=== PATIENT | female | born 1940 | race Caucasian/White ===

== ENCOUNTER 2019-02-18 16:11 | Emergency (ER) | payer MEDICARE ==
[~2019-02-18] VITALS: Ht 61 cm; Wt 46.4 kg
--- NOTE | 2019-02-18 16:50 | NUR ---
Pt to FT1 d/t lack of bed availability in ED.
--- NOTE | 2019-02-18 17:15 | NUR ---
Pt amb to room #6 @ this time.
--- NOTE | 2019-02-18 17:53 | Diagnostic Imaging Report ---
INDICATION: Hypertension. COMPARISON: No comparison available. FINDINGS: Heart size is mildly prominent, but the central pulmonary vascularity appears appropriate. There do appear to be chronic interstitial changes present within the lungs. Correlate for any known smoking history. There is no focal infiltrate or evidence of an effusion. There is no pneumothorax. No suspicious osseous abnormality demonstrated. There has been prior right shoulder arthroplasty and lumbar spinal fusion. IMPRESSION: 1. Mildly enlarged cardiac silhouette without evidence of current edema or failure. 2. Apparent chronic interstitial change within the lungs. Correlate for any known smoking history. 3. No focal infiltrate or effusion. Dictated by: Dictated on workstation # [id number]
--- NOTE | 2019-02-18 18:00 | NUR ---
pt sitting in ED bed quietly with family at side, pt shows no s/s of distress, pt denies any needs or c/o at this time, will continue to monitor
[2019-02-18 18:12] LABS: BASOPHILS # (AUTO) 0.1 10^3/uL (0.0-0.1); BASOPHILS % (AUTO) 1 % (0-10); EOSINOPHILS # (AUTO) 0.6 10^3/uL (0.0-0.3); EOSINOPHILS % (AUTO) 5 % (0-10); HEMATOCRIT 36 % (35-52); HEMOGLOBIN 11.3 G/DL (11.5-16.0); LYMPHOCYTES # (AUTO) 1.7 X 10^3 (1.0-4.0); LYMPHOCYTES % (AUTO) 17 % (12-44); MEAN CORPUSCULAR HEMOGLOBIN 29 PG (25-34); MEAN CORPUSCULAR HGB CONC 32 G/DL (32-36); MEAN CORPUSCULAR VOLUME 92 FL (80-99); MEAN PLATELET VOLUME 10.6 FL (7.4-10.4); MONOCYTES # (AUTO) 1.1 X 10^3 (0.0-1.0); MONOCYTES % (AUTO) 10 % (0-12); NEUTROPHILS % (AUTO) 67 % (42-75); PLATELET COUNT 345 10^3/uL (130-400); RED CELL DISTRIBUTION WIDTH 14.2 % (10.0-14.5); WHITE BLOOD COUNT 10.4 10^3/uL (4.3-11.0)
[2019-02-18 18:22] LABS: INR 0.9 (0.8-1.4); PROTHROMBIN TIME PATIENT 12.7 SEC (12.2-14.7)
[2019-02-18] MEDS ORDERED: hydrALAZINE (APESOLINE) 20 MG/ML VIAL IV ONE (18:30)
[2019-02-18 18:31] LABS: ALANINE AMINOTRANSFERASE 7 U/L (0-55); ALKALINE PHOSPHATASE 106 U/L (40-136); BILIRUBIN,TOTAL 0.2 MG/DL (0.1-1.0); BUN/CREATININE RATIO 23; CARBON DIOXIDE 25 MMOL/L (21-32); CHLORIDE 101 MMOL/L (98-107); CREATININE SERUM 0.75 MG/DL (0.60-1.30); GFR ESTIMATED > 60; GLUCOSE 90 MG/DL (70-105); POTASSIUM 3.8 MMOL/L (3.6-5.0); SODIUM 137 MMOL/L (135-145); TOTAL PROTEIN 7.1 GM/DL (6.4-8.2)
--- NOTE | 2019-02-18 18:31 | ED Cardiac General ---
History of Present Illness General Chief Complaint: Cardiac/General Problems Stated Complaint: BP HIGH Nursing Triage Note: Pt amb to triage w/o difficulty with c/o high bp. Reports to have audrey experiencing increased bp for approx x3 days. 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 Reports headache and chronic back pain. Denies SOA, CP, nausea, vomiting, or dizziness. Reports to have had bilat carotid duplex scans performed on this day. History of Present Illness Date Seen by Provider: Feb 18, 2019 Time Seen by Provider: 16:50 Initial Comments 78-year-old female presents for hypertension. She was seen at her primary care provider's office and referred here. Patient immediately reports that her blood pressure is related to her back pain. She was taking hydrocodone regularly and recently moved from [place] to [place].She is seeing a new provider and she reports "he won't refill my norco". Timing/Duration: intermittent Severity: mild Location: back Activities at Onset: none NTG SL MANAGER FORMS: No ASA po MANAGER FORMS: No Associated Systoms: Denies Symptoms Allergies and Home Medications Allergies Coded Allergies: No Allergy Information Available (Unverified , 02/18/19) Patient Home Medication List Home Medication List Reviewed: Yes Review of Systems Review of Systems Constitutional: no symptoms reported, see HPI Cardiovascular: See HPI, Other (hypertension) Musculoskeletal: see HPI, back pain (patient denies any change in her symptoms, they've been chronic.) All Other Systems Reviewed Negative Unless Noted: Yes Past Ptdsrak-Cnuvhi-Ifmfcc Hx Past Med/Social Hx: Reviewed Nursing Past Med/Soc Hx Patient Social History Alcohol Use: Denies Use Recreational Drug Use: No Smoking Status: Current Everyday Smoker Type Used: Cigarettes 2nd Hand Smoke Exposure: Yes Recent Foreign Travel: No Contact w/Someone Who Travel: No Recent Infectious Disease Expo: No Recent Hopitalizations: No Past Medical History Surgeries: Yes (double mastectomy) Appendectomy, Gallbladder, Hysterectomy, Orthopedic Respiratory: Yes COPD Cardiac: Yes Hypertension Neurological: No Genitourinary: No Musculoskeletal: Yes Degenerate Disk Disease, Osteoporosis, Arthritis, Back Injury, Chronic Back Pain Endocrine: No Cancer: No Psychosocial: No Integumentary: No Blood Disorders: No Physical Exam Vital Signs Vital Signs - First Documented 02/18/19 16:30 Temp 36.4 Pulse 83 Resp 17 B/P (MAP) 207/99 (135) Pulse Ox 98 O2 Delivery Room Air Capillary Refill : Less Than 3 Seconds Height, Weight, BMI Height: '" Weight: lbs. oz. kg; 124.00 BMI Method: General Appearance: No Apparent Distress, WD/WN HEENT: PERRL/EOMI, TMs Normal, Normal ENT Inspection, Pharynx Normal Neck: Full Range of Motion, Normal Inspection, Non Tender, Supple Respiratory: Chest Non Tender, Lungs Clear, Normal Breath Sounds Cardiovascular: Regular Rate, Rhythm, No Murmur, Normal Peripheral Pulses Gastrointestinal: Normal Bowel Sounds, Non Tender, Soft Extremity: Normal Capillary Refill, Normal Inspection, Normal Range of Motion, No Pedal Edema Neurologic/Psychiatric: Alert, Oriented x3, No Motor/Sensory Deficits, Normal Mood/Affect Skin: Normal Color, Warm/Dry Other comments Normal range of motion to the lumbar spine, power V/V L4 to S1, no paraspinal muscle spasms, full range of motion to bilateral hips. Negative straight leg raising sign. Progress/Results/Core Measures Results/Orders Lab Results Laboratory Tests Test 02/18/19 17:58 Range/Units White Blood Count 10.4 4.3-11.0 10^3/uL Red Blood Count 3.89 L 4.35-5.85 10^6/uL Hemoglobin 11.3 L 11.5-16.0 G/DL Hematocrit 36 35-52 % Mean Corpuscular Volume 92 80-99 FL Mean Corpuscular Hemoglobin 29 25-34 PG Mean Corpuscular Hemoglobin Concent 32 32-36 G/DL Red Cell Distribution Width 14.2 10.0-14.5 % Platelet Count 345 130-400 10^3/uL Mean Platelet Volume 10.6 H 7.4-10.4 FL Neutrophils (%) (Auto) 67 42-75 % Lymphocytes (%) (Auto) 17 12-44 % Monocytes (%) (Auto) 10 0-12 % Eosinophils (%) (Auto) 5 0-10 % Basophils (%) (Auto) 1 0-10 % Neutrophils # (Auto) 7.0 1.8-7.8 X 10^3 Lymphocytes # (Auto) 1.7 1.0-4.0 X 10^3 Monocytes # (Auto) 1.1 H 0.0-1.0 X 10^3 Eosinophils # (Auto) 0.6 H 0.0-0.3 10^3/uL Basophils # (Auto) 0.1 0.0-0.1 10^3/uL Prothrombin Time 12.7 12.2-14.7 SEC INR Comment 0.9 0.8-1.4 Activated Partial Thromboplast Time 35 24-35 SEC Sodium Level 137 135-145 MMOL/L Potassium Level 3.8 3.6-5.0 MMOL/L Chloride Level 101 98-107 MMOL/L Carbon Dioxide Level 25 21-32 MMOL/L Anion Gap 11 5-14 MMOL/L Blood Urea Nitrogen 17 7-18 MG/DL Creatinine 0.75 0.60-1.30 MG/DL Estimat Glomerular Filtration Rate > 60 BUN/Creatinine Ratio 23 Glucose Level 90 70-105 MG/DL Calcium Level 10.0 8.5-10.1 MG/DL Corrected Calcium 10.0 8.5-10.1 MG/DL Magnesium Level 2.0 1.6-2.4 MG/DL Total Bilirubin 0.2 0.1-1.0 MG/DL Aspartate Amino Transf (AST/SGOT) 12 5-34 U/L Alanine Aminotransferase (ALT/SGPT) 7 0-55 U/L Alkaline Phosphatase 106 40-136 U/L Myoglobin 25.9 10.0-92.0 NG/ML Troponin I < 0.028 <0.028 NG/ML Total Protein 7.1 6.4-8.2 GM/DL Albumin 4.0 3.2-4.5 GM/DL My Orders Orders - PAT[facility] [employer] Cbc With Automated Diff (02/18/19 17:15) Magnesium (02/18/19 17:15) Chest 1 View, Ap/Pa Only (02/18/19 17:15) Ekg Tracing (02/18/19 17:15) Cardiac Profile 1 (02/18/19 17:15) Comprehensive Metabolic Panel (02/18/19 17:15) Myoglobin Serum (02/18/19 17:15) Protime With Inr (02/18/19 17:15) Partial Thromboplastin Time (02/18/19 17:15) Ed Iv/Invasive Line Start (02/18/19 17:15) Hydralazine Injection (Apresoline Inject (02/18/19 18:30) Tramadol Tablet (Ultram Tablet) (02/18/19 19:00) Medications Given in ED Current Medications Medications Dose Ordered Sig/Deneen Route Start Time Stop Time Status Last Admin Dose Admin Hydralazine HCl 5 mg ONCE ONCE IV 02/18/19 18:30 02/18/19 18:31 DC 02/18/19 19:10 5 MG Vital Signs/I&O 02/18/19 02/18/19 16:30 20:05 Temp 36.4 Pulse 83 83 Resp 17 18 B/P (MAP) 207/99 (135) 166/69 (135) Pulse Ox 98 98 O2 Delivery Room Air Blood Pressure Mean: 135 Progress Progress Note : Time: 16:50 Progress Note Patient seen and evaluated, will get labs and reevaluate. 1844 Will give Hydralazine 5 mg IV for blood pressure, we'll give tramadol 100 mg for pain. Labs all within normal limits 1909 patient and her son became upset when nurse brought Tramadol to room, said they don't want to pay $60 for tramadol when it won't work. Checked K-Tracs, patient has significant history of opiod use going back to 2016. Until the end of December 2018, she was getting 60-85 hydrocodone 10 mg/APAP 325 mg every month, previously she was getting Oxycodone 10 mg regularly. Initial ECG Impression Date: Feb 18, 2019 Initial ECG Impression Time: 17:34 Initial ECG Rate: 75 Initial ECG Rhythm: Normal Sinus Initial ECG Intervals: Normal Initial ECG Intervals CA 148, QRSD 74, QT 396, QTC 443. [place] P 23, QRS 31, T 79. Initial ECG Comparisson: No Previous ECG Available Diagnostic Imaging Diagonstic Imaging: CT Plain Films/CT/US/NM/MRI: head Comments NAME: MARJ SULTANA [facility] REC#: [id number] PT STATUS: REG CLI : 1940 PHYSICIAN: ELY GANDHI DO ADMIT DATE: 02/18/19/RAD Signed Date of Exam: 02/18/19 CT ANGIO HEAD/NECK PROCEDURE: CT angiography of the head and CT angiography of the neck with and without contrast. TECHNIQUE: Contiguous noncontrast images were obtained from the skull base through the vertex. After intravenous contrast administration, helical CT angiography of the neck was performed. Source data was reformatted into 3D MIP projections. Delayed post contrast acquisition was also obtained. Auto Exposure Controls were utilized during the CT exam to meet ALARA standards for radiation dose reduction. INDICATION: Abnormal outside carotid Doppler. This study is performed for further evaluation. COMPARISON: Prior images are not available for comparison. FINDINGS: Precontrast imaging through the brain demonstrates some prominence of ventricles and sulci consistent with the patient's age. There is periventricular hypodensity noted consistent with senescent change. 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 No sulcal effacement or midline shift is detected. No acute intra-axial or extra-axial hemorrhage is detected. Delayed postcontrast imaging through the brain is without evidence of an abnormal enhancing lesion. CT angiographic portion of the exam does show a three-vessel branching pattern of the aortic arch. There is calcified plaque involving the aortic arch as well as origins of the brachiocephalic, left common carotid, and left subclavian arteries. Both common carotid arteries appear to be widely patent. There is mild plaquing in the proximal right internal carotid artery. No stenosis is seen. More significant plaquing is identified at the left carotid bifurcation and proximal left internal carotid artery. Diameter stenosis is approximately 70%. Remainder of the internal carotid arteries appears to be widely patent apart from some calcified plaque at the carotid siphons bilaterally. Bilateral middle cerebral arteries, bilateral anterior cerebral arteries, and posterior cerebral arteries appear patent. The basilar artery is patent. Bilateral vertebral arteries are patent. Vertebral arteries appear to be codominant. Imaging through the upper lung ash does show centrilobular emphysematous change with biapical pleural parenchymal scarring. IMPRESSION: Bilateral carotid plaque. There is approximately 70% stenosis of the origins of the left internal carotid artery. No other significant abnormality is seen. Reviewed: Reviewed by Me Departure Impression Primary Impression: Hypertension Qualified Codes: I10 - Essential (primary) hypertension Additional Impression: Opioid withdrawal Disposition: 01 HOME, SELF-CARE Condition: Improved Departure-Patient Inst. Decision time for Depature: 21:00 Referrals: ELY GANDHI DO (PCP) Primary Care Physician Patient Instructions: Drug Abuse and Drug Addiction (DC), High Blood Pressure (DC) Add. Discharge Instructions: Consider seeking care with [facility] for medication treatment for opioid abuse, Dr. Stone or Shahab. Increase your Metoprolol, take 2 tablets for the next 3-4 days, then follow up with your blood pressure. Return to the emergency department for new, urgent health care problems. All discharge instructions reviewed with patient and/or family. Voiced understanding. Copy Copies To 1: ELY GANDHI AMY ARNP Feb 18, 2019 18:31
--- NOTE | 2019-02-18 18:42 | NUR ---
assisted pt to restroom
[2019-02-18 20:05] VITALS: BP 166/69
== END 2019-02-18 20:05 | disposition home or self-care (01) ==
LOC: EDUNIT# 16:11 → ER 16:12
DX: I10 Essential (primary) hypertension (principal); F11.23 Opioid dependence with withdrawal; J44.9 Chronic obstructive pulmonary disease, unspecified; M81.0 Age-related osteoporosis without current pathological fracture; F17.210 Nicotine dependence, cigarettes, uncomplicated; Z90.49 Acquired absence of other specified parts of digestive tract; Z90.710 Acquired absence of both cervix and uterus; Z90.13 Acquired absence of bilateral breasts and nipples
CPT/HCPCS: 36415; 71045; 80053; 83735; 83874; 84484; 85025; 85610; 85730; 93005; 96374

== ENCOUNTER → 2019-02-18 | Outpatient (CLI) | payer MEDICARE ==
[~2019-02-18] MED LIST: HOLD METFORMIN - RECEIVED CONTRAST 20 ML VIAL IV SCH; IOHEXOL 350 MG/ML 100 ML (OMNIPAQUE 350) VIAL IV ONE; NS 100 ML (IVPB) BAG IV ONE
--- NOTE | 2019-02-18 15:37 | Diagnostic Imaging Report ---
PROCEDURE: CT angiography of the head and CT angiography of the neck with and without contrast. TECHNIQUE: Contiguous noncontrast images were obtained from the skull base through the vertex. After intravenous contrast administration, helical CT angiography of the neck was performed. Source data was reformatted into 3D MIP projections. Delayed post contrast acquisition was also obtained. Auto Exposure Controls were utilized during the CT exam to meet ALARA standards for radiation dose reduction. INDICATION: Abnormal outside carotid Doppler. This study is performed for further evaluation. COMPARISON: Prior images are not available for comparison. FINDINGS: Precontrast imaging through the brain demonstrates some prominence of ventricles and sulci consistent with the patient's age. There is periventricular hypodensity noted consistent with senescent change. 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 No sulcal effacement or midline shift is detected. No acute intra-axial or extra-axial hemorrhage is detected. Delayed postcontrast imaging through the brain is without evidence of an abnormal enhancing lesion. CT angiographic portion of the exam does show a three-vessel branching pattern of the aortic arch. There is calcified plaque involving the aortic arch as well as origins of the brachiocephalic, left common carotid, and left subclavian arteries. Both common carotid arteries appear to be widely patent. There is mild plaquing in the proximal right internal carotid artery. No stenosis is seen. More significant plaquing is identified at the left carotid bifurcation and proximal left internal carotid artery. Diameter stenosis is approximately 70%. Remainder of the internal carotid arteries appears to be widely patent apart from some calcified plaque at the carotid siphons bilaterally. Bilateral middle cerebral arteries, bilateral anterior cerebral arteries, and posterior cerebral arteries appear patent. The basilar artery is patent. Bilateral vertebral arteries are patent. Vertebral arteries appear to be codominant. Imaging through the upper lung ash does show centrilobular emphysematous change with biapical pleural parenchymal scarring. IMPRESSION: Bilateral carotid plaque. There is approximately 70% stenosis of the origins of the left internal carotid artery. No other significant abnormality is seen. Dictated by: Dictated on workstation # [id number]
== END ==
LOC: RAD 14:37
PROVIDERS: ATTEND Family Medicine
DX: I65.23 Occlusion and stenosis of bilateral carotid arteries (principal)
CPT/HCPCS: 70496; 70498

== ENCOUNTER → 2019-09-18 | Outpatient (CLI) | payer MEDICARE ==
[2019-09-18 12:21] LABS: ABSOLUTE RETIC # 88 10e9/L (24-90); RETICULOCYTE % 3.74 % (0.50-2.40)
[2019-09-18 12:35] LABS: BAND NEUTROPHILS 0 %; BASOPHILS % (MANUAL) 0 %; EOSINOPHILS % (MANUAL) 1 %; LYMPHOCYTES % (MANUAL) 14 %; MONOCYTES % (MANUAL) 5 %; NEUTROPHILS % (MANUAL) 80 %
[2019-09-18 12:36] LABS: ANISOCYTOSIS MODERATE; HYPOCHROMASIA SLIGHT
== END ==
LOC: LABNPT 12:11
PROVIDERS: ATTEND Internal Medicine
DX: Z01.89 Encounter for other specified special examinations (principal)
CPT/HCPCS: 85007; 85045

== ENCOUNTER 2019-09-29 12:42 | Outpatient (RCR) | payer MEDICARE ==
[2019-09-29 13:16] LABS: BASOPHILS # (AUTO) 0.1 10^3/uL (0.0-0.1); BASOPHILS % (AUTO) 2 % (0-10); EOSINOPHILS # (AUTO) 0.4 10^3/uL (0.0-0.3); EOSINOPHILS % (AUTO) 7 % (0-10); HEMATOCRIT 39 % (35-52); HEMOGLOBIN 11.8 G/DL (11.5-16.0); LYMPHOCYTES # (AUTO) 0.8 X 10^3 (1.0-4.0); LYMPHOCYTES % (AUTO) 15 % (12-44); MEAN CORPUSCULAR HEMOGLOBIN 27 PG (25-34); MEAN CORPUSCULAR HGB CONC 30 G/DL (32-36); MEAN CORPUSCULAR VOLUME 90 FL (80-99); MEAN PLATELET VOLUME 9.5 FL (7.4-10.4); MONOCYTES # (AUTO) 0.6 X 10^3 (0.0-1.0); MONOCYTES % (AUTO) 11 % (0-12); NEUTROPHILS # (AUTO) 3.6 X 10^3 (1.8-7.8); NEUTROPHILS % (AUTO) 66 % (42-75); PLATELET COUNT 326 10^3/uL (130-400); RED CELL DISTRIBUTION WIDTH 20.3 % (10.0-14.5); WHITE BLOOD COUNT 5.5 10^3/uL (4.3-11.0)
[2019-09-29 13:33] LABS: ALANINE AMINOTRANSFERASE 10 U/L (0-55); ALBUMIN 3.9 GM/DL (3.2-4.5); ALKALINE PHOSPHATASE 125 U/L (40-136); BILIRUBIN,TOTAL 0.2 MG/DL (0.1-1.0); BUN/CREATININE RATIO 27; CALCIUM 9.8 MG/DL (8.5-10.1); CARBON DIOXIDE 26 MMOL/L (21-32); CHLORIDE 105 MMOL/L (98-107); CREATININE SERUM 0.78 MG/DL (0.60-1.30); GFR ESTIMATED > 60; GLUCOSE 115 MG/DL (70-105); POTASSIUM 3.6 MMOL/L (3.6-5.0); SODIUM 141 MMOL/L (135-145); TOTAL PROTEIN 7.2 GM/DL (6.4-8.2)
== END 2019-12-28 | disposition home or self-care (01) ==
LOC: ONC 12:42
PROVIDERS: ATTEND Internal Medicine Hematology & Oncology
DX: D50.0 Iron deficiency anemia secondary to blood loss (chronic) (principal); J44.9 Chronic obstructive pulmonary disease, unspecified; I10 Essential (primary) hypertension; M54.9 Dorsalgia, unspecified; G89.29 Other chronic pain; F17.210 Nicotine dependence, cigarettes, uncomplicated; Z79.82 Long term (current) use of aspirin; Z79.899 Other long term (current) drug therapy
CPT/HCPCS: 80053; 85025; G0463; 99214

== ENCOUNTER → 2020-03-03 | Outpatient (CLI) | payer MEDICARE ==
[~2020-03-03] VITALS: Ht 155 cm; Wt 43.0 kg
[~2020-03-03] MED LIST changes: +CATHETER FLUSH 10 ML SYR IV PRN; -HOLD METFORMIN - RECEIVED CONTRAST 20 ML VIAL IV SCH; -IOHEXOL 350 MG/ML 100 ML (OMNIPAQUE 350) VIAL IV ONE; -NS 100 ML (IVPB) BAG IV ONE; +REGADENOSON 0.4 MG/5 ML SYR (LEXISCAN) IV ONE
[2020-03-04 16:18] VITALS: BP 191/97
--- NOTE | 2020-03-04 16:18 | Cardiology Stress Test Report ---
Stress Test Report Type of NM Stress Test: Test Type: LEXISCAN 0.4MG/5ML Date of Procedure/Referring: Date of Procedure: Mar 03, 2020 PCP Carli Kingston MD Admitting Physician Chuck Brennan MD Indications: Shortness of breath Baseline Heart Rate: 93 Baseline Blood Pressure: Blood Pressure Systolic: 191 Blood Pressure Diastolic: 97 Baseline EKG: Baseline EKG: sinus rhythm Summary & Conclusion: Summary: The patient was brought to the stress lab after informed consent was taken. Stress test was performed according to the Lexiscan protocol. 0.4 mg of IV Lexiscan was given. Low-grade exercise was performed. Baseline EKG showed sinus rhythm at 93 bpm, blood pressure 191/97 mmHg, maximum heart rate of 101 bpm and blood pressure 191/97 mmHg. Patient complain of chest pain which resolved at [address] depressions noted in 2, 3, aVF. 9.97 mCi of Myoview were given for rest imaging and 28.0 mCi of Myoview given for stress imaging. Transient ischemic dilatation score 0.96, EF 57 percent. Normal wall motion. Normal myocardial perfusion imaging during rest and stress. Conclusion: Pharmacological stress test was negative for ischemia. Normal LV function with no wall motion abnormalities. Normal myocardial perfusion imaging during rest and stress. Carli KINGSTON MD Mar 04, 2020 16:18
== END ==
LOC: CARD 08:00
PROVIDERS: ATTEND Internal Medicine Interventional Cardiology
DX: R07.2 Precordial pain (principal); F17.200 Nicotine dependence, unspecified, uncomplicated; I10 Essential (primary) hypertension; E78.1 Pure hyperglyceridemia; I73.9 Peripheral vascular disease, unspecified
CPT/HCPCS: 78452; 93017; A9502

== ENCOUNTER 2020-03-04 09:00 | Outpatient (RCR) | payer MEDICARE ==
[2020-03-03 09:35] VITALS: BP 191/97
[~2020-03-04 09:00] MED LIST changes: -CATHETER FLUSH 10 ML SYR IV PRN
[2020-03-25] MEDS ORDERED: ASPI-1238 PO (07:58)
[2020-03-25] MEDS ORDERED: HYDR-3820 PO (07:58)
[2020-03-25] MEDS ORDERED: GBPN600T PO (07:58)
[2020-03-25] MEDS ORDERED: TRAZ150T72 PO (07:58)
[2020-03-25] MEDS ORDERED: BUDE10.2 IH (07:58)
[2020-03-25] MEDS ORDERED: ATOR10TA66 PO ×2 (07:58→11:14)
[2020-03-25] MEDS ORDERED: PRAM0.257 PO (07:58)
[2020-03-25] MEDS ORDERED: OMG1KC PO (07:58)
[2020-03-25] MEDS ORDERED: FERR159T2 PO (07:58)
[2020-03-25] MEDS ORDERED: CLOP75TA28 PO (07:58)
[2020-03-25] MEDS ORDERED: PANT40TA52 PO (07:58)
[2020-03-25] MEDS ORDERED: IPRA3AMP31 IH (07:58)
[2020-03-25] MEDS ORDERED: METO50TA7 PO (07:58)
[2020-03-25] MEDS ORDERED: TIZA4CAP8 PO (07:58)
[2020-03-31] MEDS ORDERED: HYDR-3820 PO (16:35)
== END 2020-06-02 | disposition still patient (30) ==
LOC: CARD 09:00
PROVIDERS: ATTEND Internal Medicine Interventional Cardiology
DX: J44.9 Chronic obstructive pulmonary disease, unspecified (principal); I73.9 Peripheral vascular disease, unspecified; I77.9 Disorder of arteries and arterioles, unspecified; I11.9 Hypertensive heart disease without heart failure; E78.1 Pure hyperglyceridemia; F17.200 Nicotine dependence, unspecified, uncomplicated
CPT/HCPCS: 93306

== ENCOUNTER → 2020-03-22 | Outpatient (CLI) | payer MEDICARE ==
[~2020-03-22] MED LIST changes: -REGADENOSON 0.4 MG/5 ML SYR (LEXISCAN) IV ONE; +RT-ALBUTEROL SULF 2.5 MG/3 ML PRE-MIX VIAL INH ONE
--- NOTE | 2020-03-22 13:29 | Diagnostic Imaging Report ---
INDICATION: COPD, history of smoking, history of right mastectomy. TECHNIQUE: Multiple contiguous axial images were obtained through the chest without the use of intravenous contrast. Auto Exposure Controls were utilized during the CT exam to meet ALARA standards for radiation dose reduction. There is no prior chest CT for comparison. There are atherosclerotic calcifications of the aorta without evidence of aneurysm. There are no appreciably enlarged nodes in the mediastinum or francesca. There are no enlarged axillary nodes. There is a right breast prosthesis. Patient has had previous left mastectomy. There is no pleural or pericardial fluid. For findings below the diaphragm, see dictation of CT abdomen from the same day. Lung parenchymal windows demonstrate diffuse emphysematous changes in the lung apices. There is respiratory motion artifact. There is a tiny nodule in the right lower lobe posteriorly measuring about 3 mm. There is no significant size nodule or consolidation. IMPRESSION: Emphysematous changes are noted in the lung apices. There is no adenopathy or pleural fluid. There are atherosclerotic calcifications of the aortic arch. There is a tiny 3 mm nodular density in the right lower lobe. Nodules of this size do not necessarily require follow-up unless clinically warranted. Dictated by: Dictated on workstation # [id number]
== END ==
LOC: RT 11:41
PROVIDERS: ATTEND Nurse Practitioner Family
DX: J43.9 Emphysema, unspecified (principal); I70.0 Atherosclerosis of aorta; R93.89 Abnormal findings on diagnostic imaging of other specified body structures; F17.200 Nicotine dependence, unspecified, uncomplicated
CPT/HCPCS: 71250; 94060; 94726; 94729

== ENCOUNTER → 2020-03-22 | Outpatient (CLI) | payer MEDICARE ==
--- NOTE | 2020-03-22 12:57 | Diagnostic Imaging Report ---
PROCEDURE: CT urinary tract, rule out kidney stone. TECHNIQUE: Multiple contiguous axial images were obtained through the abdomen and pelvis without the use of intravenous contrast. Auto Exposure Controls were utilized during the CT exam to meet ALARA standards for radiation dose reduction. All CT scans use one or more of the following dose optimizing techniques: automated exposure control, MA and/or KvP adjustment based on patient size and exam type or iterative reconstruction. INDICATION: Bilateral posterior flank pain. COMPARISON: None FINDINGS: Included portions of the lung bases are clear. CT ABDOMEN: There are a few scattered colonic diverticuli, but no CT evidence of acute diverticulitis. Normal appendix cannot be adequately identified, but there is no pericecal inflammation. Small bowel loops are nondistended. Kidneys are partially obscured secondary to metallic beam hardening artifact from previous lumbar fusion. There is small nonobstructive calculi within the inferior pole of the left kidney. No renal calculi are seen on the right. Ureters are also partially obscured. There are calculi within the posterior left hemipelvis near the expected location of the distal left ureter. There is however no proximal hydronephrosis or other evidence of underlying obstruction. No ureteral calculi or evidence of obstruction is seen on the right. The adrenal glands, spleen, and pancreas have an unremarkable noncontrast CT appearance. There is moderate dilatation of the common bile duct. It measures 12 mm in diameter. There is also mild intrahepatic biliary ductal dilatation. Gallbladder is surgically absent. No focal hepatic masses are seen. There is no loculated fluid collection, free fluid, nor free air within the abdomen. No abnormal mesenteric or retroperitoneal adenopathy is seen. There is advanced diffuse calcified aortic and arterial atherosclerosis. No acute osseous abnormalities are seen. CT PELVIS: Urinary bladder is partially obscured and unopacified. No calculi are seen within the urinary bladder. There is no loculated fluid collection, free fluid or free air within the pelvis. No abnormal lymph nodes are seen. Osseous structures show no acute abnormalities. IMPRESSION: 1. Few small calculi are present within the posterior left hemipelvis near the expected location of the distal left ureter. These may represent unrelated phleboliths, as there is no proximal hydronephrosis or other evidence of obstruction. 2. Punctate nonobstructive left renal calculi. 3. Intra and extrahepatic biliary ductal dilatation, which may be related to patient's age and previous cholecystectomy. Dictated by: Dictated on workstation # [id number]
== END ==
LOC: RAD 11:42
PROVIDERS: ATTEND Nurse Practitioner Community Health
DX: N20.2 Calculus of kidney with calculus of ureter (principal); K83.8 Other specified diseases of biliary tract
CPT/HCPCS: 74176

== ENCOUNTER 2020-03-25 09:00 | Day surgery (SDC) | payer MEDICARE ==
[2020-03-25] VITALS (16 sets, daily range): BP systolic 90–167; BP diastolic 49–94
[~2020-03-25] VITALS: Ht 154.9 cm; Wt 44.5 kg
[2020-03-25 07:47] LABS: HEMOGLOBIN 12.8 g/dL (11.5-16.0); MEAN PLATELET VOLUME 10.5 fL (9.0-12.2); WHITE BLOOD COUNT 4.1 10^3/uL (4.3-11.0)
[2020-03-25 07:58] LABS: ALBUMIN 4.4 GM/DL (3.2-4.5); BILIRUBIN,TOTAL 0.3 MG/DL (0.1-1.0); CALCIUM 9.7 MG/DL (8.5-10.1); CREATININE SERUM 0.96 MG/DL (0.60-1.30); POTASSIUM 3.8 MMOL/L (3.6-5.0); TOTAL PROTEIN 7.4 GM/DL (6.4-8.2)
[2020-03-25 07:59] LABS: INR 0.9 (0.8-1.4); PROTHROMBIN TIME PATIENT 12.7 SEC (12.2-14.7)
[~2020-03-25 09:00] MED LIST changes: +ASPI-1238 PO; +ATOR10TA66 PO; +BUDE10.2 IH; +CLOP75TA28 PO; +FERR159T2 PO; +GBPN600T PO; +HEParin (CATH LAB) 2,000 ML IV ONE; +HEParin 1000 UNIT/ML (10ML VIAL) FOR BOLUS ONE; +HYDR-3820 PO; +IPRA3AMP31 IH; +LIDOCAINE 1% INJ 20 ML 20 ML VIAL ONE; +METO50TA7 PO; +MIDAZOLAM 5 MG/5 ML (VERSED) VIAL ONE; +NITRO DRIP 25000 MCG/D5W 250 ML IV ONE; +NS IV 1000 ML 1,000 ML IV SCH; +NS IV 1000 ML 1,000 ML ONE; +OMG1KC PO; +PANT40TA52 PO; +PRAM0.257 PO; -RT-ALBUTEROL SULF 2.5 MG/3 ML PRE-MIX VIAL INH ONE; +TIZA4CAP8 PO; +TRAZ150T72 PO; +VERAPAMIL 5 MG/2 ML (CALAN) VIAL IV ONE; +fentaNYL INJECTION 100 MCG/2 ML AMP ONE
[2020-03-25] MEDS ORDERED: CLOPIDOGREL 300 MG (PLAVIX) TABLET PO ONE (10:50)
--- NOTE | 2020-03-25 11:03 | Coronary Angiography & PCI ---
Coronary Angiography & PCI DATE OF PROCEDURE: 03/25/20 INDICATION: chest pain, abnormal pharmacological stress test. PREOPERATIVE DIAGNOSIS: chest pain, abnormal pharmacological stress test. POSTOPERATIVE DIAGNOSIS: severe mid RCA stenosis, successful PCI. HISTORY: this is a 79-year-old lady with history of active smoking, hypertension, hyperlipidemia who presented with recurrent chest pain. Pharmacological nuclear stress test showed chest pain and ST depressions.There fore, the patient was scheduled for coronary angiography. PROCEDURES PERFORMED: 1.Coronary angiography. 2.Left heart catheterization. 3.PCI to the mid RCA with drug-eluting stent. 4. Right upper extremity angiogram, medical necessity:Difficulty advance wire. COMPLICATIONS: None. SPECIMENS: None. ESTIMATED BLOOD LOSS: 10 mL ANESTHESIA: Conscious sedation ANTICOAGULATION: IV heparin CONTRAST: 200 mL. FLUOROSCOPY: 28 minutes. FLOUROSCOPY DOSE: 372 mgy. PROCEDURE DETAILS: The patient is a 79 female and was brought to the cathead worker after informed consent was taken. All the risks and complications were explained in detail; this included the risk of bleeding, vascular damage, stroke, NE and even . The patient was draped and prepped in the usual sterile fashion. Access was gained in the right radial artery with a 6 Marshallese sheath. however we could not advance the wire near the elbow due to a arterial loop. Small artery with mild spasm. Therefore the wire and the Bromide catheter were taken out. Access was gained in the right femoral artery with a 5 Marshallese sheath. Coronary angiography was done with a JR4, JL4, MP catheter. 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 Nonselective angiogram done with a JR4 catheter. High origin of the left main. We could not engage with a JL4 catheter. Angiogram was done with an MP catheter. Left heart catheterization was done with a JR4 catheter. FINDINGS: 1.Left main: patent. 2.LAD: patent LAD. However a decent-sized first diagonal artery has moderate to severe ostial stenosis. Stenosis severity 70 percent. Mid first diagonal artery stenosis of 70-80 percent. 3.Left circumflex artery: patent. Tortuous. 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 Severe mid stenosis. Stenosis severity 80-90 percent. 5.Left heart catheterization: LV pressure 132/16 mmHg. LVEDP 18 mmHg. Aortic pressure 132/54 mmHg. Normal LV function with no wall motion abnormality.no gradient across the aortic valve. 6. Right upper extremity angiogram showed small radial artery with no stenosis however an arterial loop was noted. RECOMMENDATIONS: pCI to the mid RCA is recommended. INTERVENTION DETAILS: 7000 heparin given. Plavix 300 mg given. We first tried to engage with an Amplatz 1 guide catheter but were not able to get coaxial position.we then took a JL 4.5 guide catheter and with difficulty we were able to engage the ostium of the RCA. We first used a BMW wire but were not able to have a stable guide catheter and wire position. Therefore we then took a choice floppy wire and were able to cross the lesion. Direct stenting with a resolute integrity 2.5 x 8 mm stent which was deployed at 18 sheridan for 25 seconds. Excellent results with no residual stenosis and BRAIN-3 flow. Wire and stent balloon were taken out. Post-angiogram showed excellent results with mild distal disease which was left alone. Minx closure to the RFA. CONCLUSIONS: 1. 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 2. Moderate to severe first diagonal artery stenosis. 3. Dual antiplatelet therapy for at least 1 year. 4. Aggressive secondary prevention measures. 5. Smoking cessation was strongly recommended. Arron Otero MD, FACP, FACC, [facility] Interventional Cardiology Carli OTERO MD Mar 25, 2020 11:03
--- NOTE | 2020-03-25 11:03 | Cardiac Procedure Note-CS/ASA ---
Pre-Procedure Note Pre-Op Procedure Note H&P Reviewed The H&P was reviewed, patient examined and no changes noted. Date H&P Reviewed: Mar 25, 2020 Time H&P Reviewed: 09:15 Conscious Sedation Pre-Proced Time 09:30 ASA Score 3 For ASA 3 and 4: Consider anesthesia and medical clearance. Also, for patients with a history of failed moderate sedation consider anesthesia. Airway Lungs Heart ASA score ASA 1: a normal healthy patient ASA 2: a patient with a mild systemic disease (mid diabetes, controlled hypertension, obesity ASA 3: a patient with a severe systemic disease that limits activity (angina, COPD, prior Myocardial infarction) ASA 4: a patient with an incapacitating disease that is a constant threat to life (CHF, renal failure) ASA 5: a moribund patient not expected to survive 24 hrs. (ruptured aneurysm) ASA 6: a declared brain- patient whose organs are being harvested. For emergent operations, add the letter E after the classification Mallampati Classification Grade 1 Sedation Plan Analgesia, Amnesia, Plan communicated to team members, Discussed options with patient/fam, Discussed risks with patient/fam The patient is an appropriate candidate to undergo the planned procedure, sedation, and anesthesia. The patient immediately re-assessed prior to indication. Carli KINGSTON MD Mar 25, 2020 11:03
--- NOTE | 2020-03-25 11:11 | History & Physicial-Cardiolgy ---
HPI-Cardiology Cardiology Consultation: Date of Consultation 03/25/20 Date of Admission Attending Physician Carli Kingston MD Admitting Physician Chuck Brenann MD Consulting Physician Carli KINGSTON MD HPI: Time Seen by a Provider: 09:15 Chief Complaint: Chest pain Chest pain, active smoking, HTN, COPD, hyperlipidemia. Stress test demonstrated chest pain and ST depressions. Review of Systems-Cardiology Review of Systems Constitutional: As described under HPI; No As described under HPI, No no symptoms reported, No chills, No fever, No lightheadedness Eyes: No As described under HPI, No no symptoms reported, No blindness, No blurred vision, No contact lenses, No drainage, No decreased acuity, No foreign body sensation, No pain, No vision change Ears/Nose/Throat: No As described under HPI, No no symptoms reported, No chronic hearing loss, No ear discharge, No ear pain, No nasal drainage, No ulcerations Respiratory: No no symptoms reported; As described under HPI; No As described under HPI, No cough, No orthopnea, No shortness of breath, No SOB with excertion Cardiovascular: No no symptoms reported; As described under HPI; No As described under HPI; chest pain; No edema, No irregular heart rate, No light headedness, No palpitations Gastrointestinal: No no symptoms reported, No As described under HPI, No abdom en distended, No abdominal pain, No blood streaked bowels, No constipation, No diarrhea, No nausea, No vomiting, No stool coloration changes Genitourinary: No As described under HPI, No burning, No dysuria, No discharge, No frequency, No flank pain, No hematuria, No urgency : Yes : No Skin: No rash, No skin related problems, No ulcerations Psychiatric/Neurological: No anxiety, No depression, No seizure, No focal weakness, No syncope Hematologic: No bleeding abnormalities QRW-Yjkccj-Fkylij Hx Patient Social History Alcohol Use: Denies Use Recreational Drug Use: No Smoking Status: Current Everyday Smoker Type Used: Cigarettes 2nd Hand Smoke Exposure: Yes Recent Foreign Travel: No Immunizations Up To Date Date of Pneumonia Vaccine: Mar 25, 2014 Date of Influenza Vaccine: Mar 18, 2020 Past Medical History PMH As described under Assessment. Allergies and Home Medications Allergies Coded Allergies: morphine (Verified Allergy, Mild, Rash, 03/25/20) Home Medications Aspirin 81 Mg Tablet.dr, 81 MG PO HS, (Reported) Atorvastatin Calcium 10 Mg Tablet, 10 MG PO HS, (Reported) Budesonide/Formoterol Fumarate 10.2 Gm Hfa.aer.ad, 2 PUFF IH BID, (Reported) Clopidogrel Bisulfate 75 Mg Tablet, 75 MG PO HS, (Reported) Ferrous Sulfate, Dried 159 Mg Tablet.er, 159 MG PO DAILY, (Reported) Gabapentin 600 Mg Tablet, 600 MG PO TID, (Reported) Hydrocodone/Acetaminophen 1 Each Tablet, 1 EACH PO TID PRN for PAIN-MODERATE (5- 7), (Reported) Ipratropium/Albuterol Sulfate 3 Ml Ampul.neb, 3 ML IH BID PRN for SHORTNESS OF BREATH, (Reported) Metoprolol Succinate 50 Mg Tab.er.24h, 50 MG PO HS, (Reported) [place] 3 Polyunsat Fatty Acids 1,000 Mg Cap, 1,000 MG PO HS, (Reported) Pantoprazole Sodium 40 Mg Tablet.dr, 40 MG PO HS, (Reported) Pramipexole Di-HCl 0.25 Mg Tablet, 0.25 MG PO HS, (Reported) Tizanidine HCl 4 Mg Capsule, 4 MG PO HS, (Reported) Trazodone HCl 150 Mg Tablet, 150 MG PO HS, (Reported) Patient Home Medication List Home Medication List Reviewed: Yes Physical Exam-Cardiology Physical Exam Vital Signs/I&O 03/25/20 07:32 Temp 36.7 Pulse 57 Resp 20 B/P (MAP) 167/82 (110) Pulse Ox 97 Capillary Refill : Constitutional: appears stated age, AAO x 3; No apparent distress; well- developed, well-nourished HEENT: PERRL; No discharge; hearing is well preserved, oral hygience is good; No ulceration, No xanthelasmas are seen Neck: No carotid bruit; carotid pulses are 2 + bilaterally Respiratory: chest is bilaterally symmetric, lungs clear to auscultation Cardiovascular: regular rate-rhythm, S1 and S2 Gastrointestinal: soft, audible bowel sounds; No spleenomegaly Rectal: deferred Extremities: normal range of motion, non-tender, normal inspection; No clubbing, No cyanosis; no lower extremity edema bilateral; No significant edema Neurologic/Psychiatric: no motor/sensory deficits, alert, normal mood/affect, oriented x 3, power is 5/5 both on sides Skin: normal color; No rash, No ulcerations Data Review Labs Laboratory Tests 03/25/20 07:35: White Blood Count 4.1L, Red Blood Count 4.26, Hemoglobin 12.8, Hematocrit 41, Mean Corpuscular Volume 96, Mean Corpuscular Hemoglobin 30, Mean Corpuscular Hemoglobin Concent 31L, Red Cell Distribution Width 13.9, Platelet Count 273, Mean Platelet Volume 10.5, Prothrombin Time 12.7, INR Comment 0.9, Activated Partial Thromboplast Time 33, Sodium Level 141, Potassium Level 3.8, Chloride Level 104, Carbon Dioxide Level 25, Anion Gap 12, Blood Urea Nitrogen 29H, Crea tinine 0.96, Estimat Glomerular Filtration Rate 56, BUN/Creatinine Ratio 30, Glucose Level 88, Calcium Level 9.7, Corrected Calcium 9.4, Total Bilirubin 0.3, Aspartate Amino Transf (AST/SGOT) 20, Alanine Aminotransferase (ALT/SGPT) 21, Alkaline Phosphatase 133, Total Protein 7.4, Albumin 4.4 A/P-Cardiology Assessment/Admission Diagnosis Chest pain, active smoking, HTN, COPD, hyperlipidemia. Admission Status: Observation Plan Stress test demonstrated chest pain and ST depressions. Coronary angiography and possible intervention is recommended. Carli KINGSTON MD Mar 25, 2020 11:11
--- NOTE | 2020-03-25 11:12 | Discharge Inst-Post CATH ---
Discharge Inst-CATH/EP Problems Reviewed?: Yes Final Diagnosis CAD, s/p PCI Post Cardiac Cath/EP D/C Inst Follow Up/Plan Follow up in one month. <b>CARDIAC CATH/EP PROCEDURE DISCHARGE INSTRUCTIONS</b> ACTIVITY * Go Home directly and rest. * Limit activity of the leg (or wrist if it was used) for 7 days including aerobics, swimming, jogging, bicycling, etc. * Restrict stair-climbing for 7 days if possible, if not, climb up with your non-cath leg, then bring together on the same step. * Avoid lifting, pushing, pulling or excessive movement of the affected extremity for 7 days. * Customary sexual activity may be resumed after 2 days-use caution not to use a position that strains or causes pain to the affected extremity. * No driving for 24 hours. * NO SMOKING. * Avoid straining for bowel movements for 7 days. * Gentle walking on level ground is allowed. * Returning to work will depend on the type of procedure and the results. Your doctor will discuss this with you. CALL YOUR DOCTOR FOR ANY OF THE FOLLOWING: *If bleeding from the puncture site occurs- Apply gentle pressure to site with clean cloth and call your doctor or EMS. * If a knot or lump forms under the skin, increases in size, or causes pain. * If bruising appears to be worsening or moving further down your leg instead of disappearing. * Temperature above 101 F. CARE OF YOUR GROIN INCISION; * Bruising or purple discoloration of the skin near the puncture site is common. * You may shower only, no bathtub bathing for 5 days. Be careful to avoid slipping as your leg may feel stiff. * If a closure device was used on your femoral artery, please see the attached guide regarding care of the device and your leg. * Leave dressing on FOR 24 hours. CARE OF YOUR WRIST INCISION; * Bruising or purple discoloration of the skin near the puncture site is common. * You may shower. * DO NOT submerge wrist. * Leave dressing on FOR 24 hours. Carli KINGSTON MD Mar 25, 2020 11:12
[2020-03-25] MEDS ORDERED: ATOR10TA66 PO (11:14)
[2020-03-25] MEDS ORDERED: PATIENT MAY USE OWN MEDS, ALL PO SCH (11:15)
[2020-03-25] MEDS ORDERED: NS IV 1000 ML 1,000 ML ONE (11:54)
[2020-03-25] MEDS ORDERED: HYDROcodone/APAP 10 MG/325 MG (LORTAB) TAB PO PRN (13:30)
[2020-03-25] MEDS ORDERED: RT-ALBUTEROL/IPRATROPIUM 3 ML (DUONEB) VIAL IH PRN (13:30)
[2020-03-25] MEDS: NS IV 1000 ML 1,000 ML IV SCH ×2 (14:30→22:27)
[2020-03-25] MEDS: FERROUS SULF 325 MG (IRON) TAB PO SCH (17:34)
[2020-03-25] MEDS: GABAPENTIN 600 MG (NEURONTIN) TAB PO SCH (20:00)
[2020-03-25] MEDS: HYDROcodone/APAP 10 MG/325 MG (LORTAB) TAB PO PRN (20:03)
[2020-03-25] MEDS ORDERED: ASPIRIN E.C. 81 MG (ECOTRIN) TAB PO SCH (21:00)
[2020-03-25] MEDS ORDERED: meTOproloL SUCCINATE 50 MG (TOPROL XL) TAB PO SCH (21:00)
[2020-03-25] MEDS ORDERED: PRAMIPEXOLE DIHYDROCHLORIDE 0.25 MG PO SCH (21:00)
[2020-03-25] MEDS ORDERED: CLOPIDOGREL 75 MG (PLAVIX) TABLET PO SCH (21:00)
[2020-03-25] MEDS ORDERED: PANTOPRAZOLE 40 MG (PROTONIX) TAB PO SCH ×2 (21:00)
[2020-03-25] MEDS ORDERED: traZODone 150 MG (DESYREL) TABLET PO SCH (21:00)
[2020-03-25] MEDS ORDERED: OMEGA 3 (FISH OIL) 1000 MG CAP PO SCH (21:00)
[2020-03-25] MEDS: FORMOTEROL IH SCH (21:00)
[2020-03-25] MEDS: BUDESONIDE IH SCH (21:00)
[2020-03-25] MEDS ORDERED: GABAPENTIN 600 MG (NEURONTIN) TAB PO SCH (21:00)
[2020-03-26] VITALS: BP 94/50
[2020-03-26 04:00] VITALS: BP 158/65
[2020-03-26] MEDS: HYDROcodone/APAP 10 MG/325 MG (LORTAB) TAB PO PRN (05:08)
[2020-03-26 07:18] VITALS: BP 108/51
[2020-03-26] MEDS: NS IV 1000 ML 1,000 ML IV SCH (07:24)
--- NOTE | 2020-03-26 07:55 | NUR ---
0700- REPORT RECEIVED FROM ASSEMBLIES AND INSTALLATIONS INSPECTOR RN. ASSESSMENT COMPLETED AT THIS TIME. PT AWAKE AND A/O X 3. DENIES PAIN, SOB, CHEST PAIN, NAUSEA, OR ANY OTHER COMPLAINTS AT THIS TIME. RIGHT FEMORAL SITE BRUISED AND SLIGHTLY SWOLLEN. NO CHANGE NOTED BY ASSEMBLIES AND INSTALLATIONS INSPECTOR RN FROM PREVIOUS ASSESSMENT. TENDER TO TOUCH. LUNGS CTA, ABDOMEN SOFT AND NONTENDER, NO EDEMA NOTED. TELEMETRY SHOWS SR. BREAKFAST TRAY AT BEDSIDE AND PT TOLERATING WELL. WILL CONTINUE TO MONITOR.
[2020-03-26] MEDS ORDERED: CLOPIDOGREL 75 MG (PLAVIX) TABLET PO SCH (09:00)
[2020-03-26] MEDS ORDERED: ASPIRIN E.C. 81 MG (ECOTRIN) TAB PO SCH (09:00)
[2020-03-26] MEDS: FERROUS SULF 325 MG (IRON) TAB PO SCH (09:10)
[2020-03-26] MEDS: GABAPENTIN 600 MG (NEURONTIN) TAB PO SCH (09:11)
[2020-03-26] MEDS: FORMOTEROL IH SCH (09:12)
[2020-03-26] MEDS: BUDESONIDE IH SCH (09:12)
--- NOTE | 2020-03-26 10:49 | NUR ---
RESTING IN BED AT THIS TIME. ALERT WITH STAFF. REMAINS IN STABLE CONDITION. DENIES PAIN AT THIS TIME. WILL CONTINUE TO MONITOR.
[2020-03-26 11:40] VITALS: BP 126/58
--- NOTE | 2020-03-26 13:22 | NUR ---
1300- DR MATIAS AT BEDSIDE TALKING WITH PT. ALL QUESTIONS AND CONCERNS ANSWERED
--- NOTE | 2020-03-26 14:32 | Progress Note - Cardiology ---
Cardiology SOAP Progress Note Subjective: No cp or palp or syncope or shortness of breath or groin or leg pain No n/v/d Wishes to go home Objective: I&O/Vital Signs 03/26/20 03/26/20 03/26/20 03/26/20 04:00 04:00 07:00 07:18 Temp 36.4 36.5 Pulse 73 71 74 Resp 18 16 B/P (MAP) 158/65 (96) 108/51 (70) Pulse Ox 96 96 92 O2 Delivery Room Air Room Air Room Air 03/26/20 03/26/20 03/26/20 03/26/20 08:19 08:30 11:40 12:29 Temp 36.5 Pulse 86 80 Resp 20 B/P (MAP) 126/58 (80) Pulse Ox 90 O2 Delivery Room Air Room Air Room Air 03/26/20 00:00 Intake Total 150 ml Balance 150 ml Condition: DP/PT pulses palpable Bruising: moderated bruising Constitutional: appears stated age, AAO x 3; No apparent distress; well- developed, well-nourished Respiratory: chest is bilaterally symmetric, lungs clear to auscultation Cardiovascular: regular rate-rhythm, S1 and S2 Gastrointestional: soft, audible bowel sounds; No spleenomegaly Extremities: normal range of motion, non-tender, normal inspection; No clubbing, No cyanosis; no lower extremity edema bilateral; No significant edema Neurologic/Psychiatric: no motor/sensory deficits, alert, normal mood/affect, oriented x 3, power is 5/5 both on sides Skin: normal color; No rash, No ulcerations Results/Procedures: Labs Microbiology 03/25/20 MRSA Screen - Final, Complete MRSA not isolated A/P: Assessment: CAD with angina, treated. 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
--- NOTE | 2020-03-26 14:35 | Cardiology Discharge Summary ---
Diagnosis/Chief Complaint Date of Admission 03/25/20 Date of Discharge 03/26/20 Final/Discharge Diagnosis CAD with angina, treated. 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 Patients Allergies have been reviewed. Discharge Home Medications: Reviewed and agree with Discharge Medication list on patient's Discharge Instruction sheet Instructions to patient/family Follow up in one month. CORTNEY ZARAGOZA MD FACP FAC CCDS Mar 26, 2020 14:35
== END 2020-03-26 14:33 | disposition home or self-care (01) ==
LOC: CATH 09:00 → CSD 14:47 → CATH 03-26 14:33
PROVIDERS: ATTEND Internal Medicine Interventional Cardiology
DX: I25.119 Atherosclerotic heart disease of native coronary artery with unspecified angina pectoris (principal); I10 Essential (primary) hypertension; J44.9 Chronic obstructive pulmonary disease, unspecified; E78.5 Hyperlipidemia, unspecified; R30.0 Dysuria; F17.210 Nicotine dependence, cigarettes, uncomplicated; Z79.82 Long term (current) use of aspirin; Z79.899 Other long term (current) drug therapy
CPT/HCPCS: 36140; 80053; 85027; 85347; 85610; 85730; 87081; 93458; C1760; C1769 ×2; C1874; C1894 ×3; C9600; 36415

== ENCOUNTER 2020-03-31 15:32 | Emergency (ER) | payer MEDICARE ==
[~2020-03-31] VITALS: Ht 152.4 cm; Wt 43.1 kg
[~2020-03-31 15:32] MED LIST changes: -HEParin (CATH LAB) 2,000 ML IV ONE; -HEParin 1000 UNIT/ML (10ML VIAL) FOR BOLUS ONE; -LIDOCAINE 1% INJ 20 ML 20 ML VIAL ONE; -MIDAZOLAM 5 MG/5 ML (VERSED) VIAL ONE; -NITRO DRIP 25000 MCG/D5W 250 ML IV ONE; -NS IV 1000 ML 1,000 ML IV SCH; -NS IV 1000 ML 1,000 ML ONE; -VERAPAMIL 5 MG/2 ML (CALAN) VIAL IV ONE; -fentaNYL INJECTION 100 MCG/2 ML AMP ONE
[2020-03-31 16:27] LABS: BASOPHILS # (AUTO) 0.1 10^3/uL (0.0-0.1); BASOPHILS % (AUTO) 1 % (0-10); EOSINOPHILS % (AUTO) 1 % (0-10); HEMATOCRIT 32 % (35-52); LYMPHOCYTES # (AUTO) 0.7 10^3/uL (1.0-4.0); LYMPHOCYTES % (AUTO) 16 % (12-44); MEAN CORPUSCULAR HEMOGLOBIN 30 pg (25-34); MEAN CORPUSCULAR HGB CONC 31 g/dL (32-36); MEAN CORPUSCULAR VOLUME 96 fL (80-99); MONOCYTES # (AUTO) 0.5 10^3/uL (0.0-1.0); MONOCYTES % (AUTO) 11 % (0-12); NEUTROPHILS # (AUTO) 3.3 10^3/uL (1.8-7.8); NEUTROPHILS % (AUTO) 71 % (42-75); PLATELET COUNT 285 10^3/uL (130-400); WHITE BLOOD COUNT 4.6 10^3/uL (4.3-11.0)
--- NOTE | 2020-03-31 16:29 | ED Lower Extremity ---
General Chief Complaint: Lower Extremity Stated Complaint: LEG SWELLING;LEG PAIN Nursing Triage Note: AMB TO ROOM REPORTS HAD HEART CATH DONE HERE ON SATURDAY. SATURDAY STARTED HAVING SWELLING AND PAIN IN GROIN AREA ON SATURDAY WAS SEEN IN [facility] CT SCAN DONE WAS TOLD IT WAS OK CONCERN THAT CON'T TO HAVE PAIN AND SWELLING. Nursing Sepsis Screen: No Definite Risk Source: patient Exam Limitations: no limitations History of Present Illness Date Seen by Provider: Mar 31, 2020 Time Seen by Provider: 16:03 Initial Comments Patient arrives ER by private conveyance from home with chief complaint of a expanding lump in her right groin. She is 6 days post catheter by Dr. Otero on Plavix. 3 days ago she went to [facility] had an ultrasound done because of some swelling and they told her nothing was wrong. Today she feels it is expanding worse and she has pain. Negative for chest pain fever chills, vomiting dysuria. Allergies and Home Medications Allergies Coded Allergies: morphine (Verified Allergy, Mild, Rash, 03/25/20) Home Medications Aspirin 81 Mg Tablet.dr, 81 MG PO HS, (Reported) Atorvastatin Calcium 10 Mg Tablet, 40 MG PO HS Prescribed by: Carli OTERO on 03/25/20 1114 Budesonide/Formoterol Fumarate 10.2 Gm Hfa.aer.ad, 2 PUFF IH BID, (Reported) Clopidogrel Bisulfate 75 Mg Tablet, 75 MG PO HS, (Reported) Ferrous Sulfate, Dried 159 Mg Tablet.er, 159 MG PO DAILY, (Reported) Gabapentin 600 Mg Tablet, 600 MG PO TID, (Reported) Hydrocodone/Acetaminophen 1 Each Tablet, 1 EACH PO TID PRN for PAIN-MODERATE (5-7), (Reported) Hydrocodone/Acetaminophen 1 Each Tablet, 1 EACH PO Q4H PRN for PAIN-BREAKTHROUGH Prescribed by: SAGE OLIVEROS on 03/31/20 1635 Ipratropium/Albuterol Sulfate 3 Ml Ampul.neb, 3 ML IH BID PRN for SHORTNESS OF BREATH, (Reported) Metoprolol Succinate 50 Mg Tab.er.24h, 50 MG PO HS, (Reported) [place] 3 Polyunsat Fatty Acids 1,000 Mg Cap, 1,000 MG PO HS, (Reported) Pantoprazole Sodium 40 Mg Tablet.dr, 40 MG PO HS, (Reported) Pramipexole Di-HCl 0.25 Mg Tablet, 0.25 MG PO HS, (Reported) Tizanidine HCl 4 Mg Capsule, 4 MG PO HS, (Reported) Trazodone HCl 150 Mg Tablet, 150 MG PO HS, (Reported) Patient Home Medication List Home Medication List Reviewed: Yes Review of Systems Constitutional: No chills, No diaphoresis EENTM: No hearing loss, No ear pain Respiratory: No cough, No short of breath Cardiovascular: No chest pain, No edema Gastrointestinal: No abdominal pain, No constipation, No diarrhea Genitourinary: No discharge, No dysuria Musculoskeletal: No back pain; joint pain ()) All Other Systems Reviewed Negative Unless Noted: Yes Past Zjbqjkq-Feuycs-Otkovo Hx Patient Social History Alcohol Use: Denies Use Recreational Drug Use: No Smoking Status: Current Everyday Smoker Type Used: Cigarettes 2nd Hand Smoke Exposure: Yes Recent Foreign Travel: No Contact w/Someone Who Travel: No Recent Infectious Disease Expo: No Recent Hopitalizations: No Immunizations Up To Date Date of Pneumonia Vaccine: Mar 25, 2014 Date of Influenza Vaccine: Mar 18, 2020 Past Medical History Surgeries: Yes (double mastectomy) Appendectomy, Gallbladder, Hysterectomy, Orthopedic Respiratory: Yes COPD Currently Using CPAP: No Currently Using BIPAP: No Cardiac: Yes Hypertension Neurological: Yes Concussion Genitourinary: Yes Kidney Stones Gastrointestinal: Yes Gastroesophageal Reflux, Ulcer Musculoskeletal: Yes Degenerate Disk Disease, Osteoporosis, Arthritis, Back Injury, Chronic Back Pain Endocrine: No Cancer: No Psychosocial: No Integumentary: No Blood Disorders: No Physical Exam Vital Signs Vital Signs - First Documented 03/31/20 17:04 Pulse 87 Resp 18 B/P (MAP) 143/74 Pulse Ox 95 O2 Delivery Room Air Capillary Refill : Less Than 3 Seconds Height, Weight, BMI Height: '" Weight: lbs. oz. kg; 18.00 BMI Method: General Appearance: WD/WN, no apparent distress HEENT: PERRL/EOMI, normal ENT inspection Neck: full range of motion, normal inspection Cardiovascular: normal peripheral pulses, regular rate, rhythm Respiratory: lungs clear, normal breath sounds, no respiratory distress, no accessory muscle use Gastrointestinal: normal bowel sounds, non tender Hips: right hip other (2 x 3 cm nodule fluctuant consistent with hematoma nonpulsatile.) Neurologic/Tendon: normal sensation, normal motor functions, normal tendon functions Neurologic/Psychiatric: alert, normal mood/affect, oriented x 3 Skin: ecchymosis Progress/Results/Core Measures Results/Orders Lab Results Laboratory Tests Test 03/31/20 16:00 Range/Units White Blood Count 4.6 4.3-11.0 10^3/uL Red Blood Count 3.32 L 3.80-5.11 10^6/uL Hemoglobin 10.0 #L 11.5-16.0 g/dL Hematocrit 32 L 35-52 % Mean Corpuscular Volume 96 80-99 fL Mean Corpuscular Hemoglobin 30 25-34 pg Mean Corpuscular Hemoglobin Concent 31 L 32-36 g/dL Red Cell Distribution Width 13.7 10.0-14.5 % Platelet Count 285 130-400 10^3/uL Mean Platelet Volume 11.0 9.0-12.2 fL Immature Granulocyte % (Auto) 0 % Neutrophils (%) (Auto) 71 42-75 % Lymphocytes (%) (Auto) 16 12-44 % Monocytes (%) (Auto) 11 0-12 % Eosinophils (%) (Auto) 1 0-10 % Basophils (%) (Auto) 1 0-10 % Neutrophils # (Auto) 3.3 1.8-7.8 10^3/uL Lymphocytes # (Auto) 0.7 L 1.0-4.0 10^3/uL Monocytes # (Auto) 0.5 0.0-1.0 10^3/uL Eosinophils # (Auto) 0.0 0.0-0.3 10^3/uL Basophils # (Auto) 0.1 0.0-0.1 10^3/uL Immature Granulocyte # (Auto) 0.0 0.0-0.1 10^3/uL Sodium Level 136 135-145 MMOL/L Potassium Level 3.5 L 3.6-5.0 MMOL/L Chloride Level 101 98-107 MMOL/L Carbon Dioxide Level 25 21-32 MMOL/L Anion Gap 10 5-14 MMOL/L Blood Urea Nitrogen 20 H 7-18 MG/DL Creatinine 1.14 0.60-1.30 MG/DL Estimat Glomerular Filtration Rate 46 BUN/Creatinine Ratio 18 Glucose Level 108 H 70-105 MG/DL Calcium Level 9.4 8.5-10.1 MG/DL Corrected Calcium 9.4 8.5-10.1 MG/DL Total Bilirubin 0.5 0.1-1.0 MG/DL Aspartate Amino Transf (AST/SGOT) 13 5-34 U/L Alanine Aminotransferase (ALT/SGPT) 12 0-55 U/L Alkaline Phosphatase 104 40-136 U/L Total Protein 6.8 6.4-8.2 GM/DL Albumin 4.0 3.2-4.5 GM/DL My Orders Orders - SAGE OLIVEROS Us Right Low Ext [id number] (03/31/20 15:50) Cbc With Automated Diff (03/31/20 16:21) Comprehensive Metabolic Panel (03/31/20 16:21) Hydrocodone/Apap 5/325 Tablet (Lortab 5 (03/31/20 16:45) Vital Signs/I&O 03/31/20 03/31/20 15:43 17:04 Pulse 87 Resp 18 B/P (MAP) 143/74 Pulse Ox 95 O2 Delivery Room Air Progress Progress Note : Time: 16:31 Progress Note Ultrasound shows a hematoma. No pseudoaneurysm. No evidence of infection. Diagnostic Imaging Diagonstic Imaging: Ultrasound Comments No evidence of arterial pseudoaneurysm. There is hematoma without evidence of infection. [facility]. [place], [place] NAME: MARJ SULTANA [facility] REC#: [id number] PT STATUS: REG ER : 1940 PHYSICIAN: SAGE OLIVEROS MD ADMIT DATE: 03/31/20/ER Signed Date of Exam:03/31/20 US RIGHT LOW EXT [id number] INDICATION: Right groin pain and swelling, recent catheterization. FINDINGS: Right groin arterial Doppler study performed in the routine fashion with color flow Doppler and waveform analysis. The common femoral artery is patent as is the common femoral vein. There is no evidence of pseudoaneurysm. There is a 1.4 x 1.1 x 0.6 cm hematoma in the anterior soft tissues. IMPRESSION: Patent common femoral artery and vein with no evidence of pseudoaneurysm. Small hematoma in the soft tissues. Dictated by: Dictated on workstation # [id number] Dict: 03/31/20 [id number] Trans: 03/31/20 [id number] [facility] [id number] Interpreted by: HA MONTES MD Electronically signed by: HA MONTES MD 03/31/20 1630 Reviewed: Reviewed by Me Departure Impression Primary Impression: Groin hematoma Qualified Codes: S30.1XXD - Contusion of abdominal wall, subsequent encounter Disposition: HOME, SELF-CARE Condition: Stable Departure-Patient Inst. Decision time for Depature: 16:30 Referrals: JULIEN OLIVER MD (PCP/Family) Primary Care Physician Carli OTERO MD Patient Instructions: HEMATOMA Add. Discharge Instructions: Warm moist compresses can help with the pain of your right groin hematoma. This is a collection of blood in the soft tissues. It is not in the vessel and will not travel anywhere. If it becomes red, inflamed, increasingly painful or you develop fever or nausea then you need to return to your doctor within the same day. Plan to follow up with Dr. Otero or one of his partners next week in the clinic for reexamination. All discharge instructions reviewed with patient and/or family. Voiced understanding. Scripts Hydrocodone/Acetaminophen (Hydrocodone-Acetamin 10-325 mg) 1 Each Tablet 1 EACH PO Q4H PRN for PAIN-BREAKTHROUGH, #15 TAB 0 Refills Prov: SAGE OLIVEROS 03/31/20 Copy Copies To 1: Carli OTERO MD, TITUS J Mar 31, 2020 16:29
[2020-03-31 16:35] LABS: POTASSIUM 3.5 MMOL/L (3.6-5.0)
[2020-03-31] MEDS ORDERED: HYDR-3820 PO (16:35)
[2020-03-31 16:36] LABS: CALCIUM 9.4 MG/DL (8.5-10.1)
[2020-03-31 16:37] LABS: TOTAL PROTEIN 6.8 GM/DL (6.4-8.2)
[2020-03-31 16:39] LABS: BILIRUBIN,TOTAL 0.5 MG/DL (0.1-1.0)
--- NOTE | 2020-03-31 16:40 | Diagnostic Imaging Report ---
INDICATION: Right groin pain and swelling, recent catheterization. FINDINGS: Right groin arterial Doppler study performed in the routine fashion with color flow Doppler and waveform analysis. The common femoral artery is patent as is the common femoral vein. There is no evidence of pseudoaneurysm. There is a 1.4 x 1.1 x 0.6 cm hematoma in the anterior soft tissues. IMPRESSION: Patent common femoral artery and vein with no evidence of pseudoaneurysm. Small hematoma in the soft tissues. Dictated by: Dictated on workstation # [id number]
[2020-03-31 16:41] LABS: CREATININE SERUM 1.14 MG/DL (0.60-1.30)
[2020-03-31] MEDS ORDERED: HYDROcodone/APAP 5 MG/325 MG (LORTAB) TAB PO ONE (16:45)
--- NOTE | 2020-03-31 16:56 | NUR ---
PATIENT DID NOT RECEIVE PAIN MEDS ON DISCHARGE DID NOT SEE ORDER.
[2020-03-31 17:04] VITALS: BP 143/74
== END 2020-03-31 16:56 | disposition home or self-care (01) ==
LOC: EDUNIT# 15:32 → ER 15:33
DX: S30.1XXA Contusion of abdominal wall, initial encounter (principal); G89.29 Other chronic pain; K21.9 Gastro-esophageal reflux disease without esophagitis; M54.9 Dorsalgia, unspecified; I10 Essential (primary) hypertension; M81.0 Age-related osteoporosis without current pathological fracture; F17.210 Nicotine dependence, cigarettes, uncomplicated; Z88.5 Allergy status to narcotic agent; Z87.820 Personal history of traumatic brain injury; Z79.82 Long term (current) use of aspirin; Z79.891 Long term (current) use of opiate analgesic; X58.XXXA Exposure to other specified factors, initial encounter
CPT/HCPCS: 36415; 80053; 85025; 93926

== ENCOUNTER 2020-07-02 20:14 | Inpatient (IN) | payer MEDICARE ==
[~2020-07-02] VITALS: Ht 154.9 cm; Wt 45.0 kg
[2020-07-02] MEDS ORDERED: fentaNYL INJECTION 100 MCG/2 ML AMP ONE (20:20)
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
[2020-07-02] MEDS ORDERED: TRANEXAMIC ACID INJECTION 1,000 MG in NS (IVPB) 50 ML IV ONE (20:30)
[2020-07-02] MEDS ORDERED: fentaNYL INJECTION 100 MCG/2 ML AMP IVP ONE ×2 (20:30→21:45)
[2020-07-02] MEDS ORDERED: TETANUS,DIPTH,PERTUSS P/F (BOOSTRIX) 0.5 ML VIAL IM ONE (20:30)
[2020-07-02 20:38] LABS: HEMOGLOBIN 11.8 g/dL (11.5-16.0); MEAN PLATELET VOLUME 10.7 fL (9.0-12.2); WHITE BLOOD COUNT 10.4 10^3/uL (4.3-11.0)
[2020-07-02 20:57] LABS: ALANINE AMINOTRANSFERASE 24 U/L (0-55); ALBUMIN 3.8 GM/DL (3.2-4.5); ALKALINE PHOSPHATASE 128 U/L (40-136); BILIRUBIN,DIRECT 0.2 MG/DL (0.0-0.3); BILIRUBIN,INDIRECT 0.1 MG/DL; BILIRUBIN,TOTAL 0.3 MG/DL (0.1-1.0); BUN/CREATININE RATIO 29; CALCIUM 9.2 MG/DL (8.5-10.1); CARBON DIOXIDE 22 MMOL/L (21-32); CHLORIDE 105 MMOL/L (98-107); CREATININE SERUM 0.86 MG/DL (0.60-1.30); GFR ESTIMATED > 60; GLUCOSE 91 MG/DL (70-105); POTASSIUM 3.9 MMOL/L (3.6-5.0); SODIUM 139 MMOL/L (135-145); TOTAL PROTEIN 6.2 GM/DL (6.4-8.2)
[2020-07-02] MEDS ORDERED: IOHEXOL 350 MG/ML 100 ML (OMNIPAQUE 350) VIAL IV ONE (21:00)
[2020-07-02] MEDS ORDERED: HOLD METFORMIN - RECEIVED CONTRAST 20 ML VIAL IV SCH (21:00)
[2020-07-02] MEDS ORDERED: NS 100 ML (IVPB) BAG IV ONE (21:00)
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
[2020-07-02] MEDS: TRANEXAMIC ACID INJECTION 1,000 MG in NS (IVPB) 250 ML IV SCH (22:18)
[2020-07-02] MEDS ORDERED: LACTATED RINGERS 1,000 ML IV ONE (22:44)
[2020-07-02 23:00] VITALS: BP 119/63
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
[2020-07-02] MEDS: fentaNYL INJECTION 100 MCG/2 ML AMP IV PRN (23:21)
[2020-07-02] MEDS ORDERED: ONDANSETRON 4 MG/2 ML (SDV) Z0FRAN IV PRN (23:30)
[2020-07-02] MEDS: LACTATED RINGERS 1,000 ML IV SCH (23:33)
[2020-07-03] VITALS (9 sets, daily range): BP systolic 80–133; BP diastolic 41–85
[2020-07-03] MEDS ORDERED: HYDROmorphone 2 MG/ML VIAL (DILAUDID) ONE (00:41)
[2020-07-03] MEDS ORDERED: HYDROcodone/APAP 10 MG/325 MG (LORTAB) TAB PO ONE (00:42)
[2020-07-03] MEDS: fentaNYL INJECTION 100 MCG/2 ML AMP IV PRN ×9 (00:48→22:01)
[2020-07-03] MEDS: HYDROmorphone 2 MG/ML VIAL (DILAUDID) IV PRN ×7 (00:48→21:50)
[2020-07-03] MEDS: HYDROcodone/APAP 10 MG/325 MG (LORTAB) TAB PO PRN ×5 (00:49→22:01)
[2020-07-03 03:01] LABS: BASOPHILS # (AUTO) 0.1 10^3/uL (0.0-0.1); BASOPHILS % (AUTO) 1 % (0-10); EOSINOPHILS # (AUTO) 0.1 10^3/uL (0.0-0.3); EOSINOPHILS % (AUTO) 1 % (0-10); HEMATOCRIT 31 % (35-52); HEMOGLOBIN 9.9 g/dL (11.5-16.0); LYMPHOCYTES # (AUTO) 0.8 10^3/uL (1.0-4.0); LYMPHOCYTES % (AUTO) 11 % (12-44); MEAN CORPUSCULAR HEMOGLOBIN 30 pg (25-34); MEAN CORPUSCULAR HGB CONC 32 g/dL (32-36); MEAN CORPUSCULAR VOLUME 94 fL (80-99); MONOCYTES # (AUTO) 0.9 10^3/uL (0.0-1.0); MONOCYTES % (AUTO) 11 % (0-12); NEUTROPHILS # (AUTO) 5.7 10^3/uL (1.8-7.8); NEUTROPHILS % (AUTO) 76 % (42-75); PLATELET COUNT 166 10^3/uL (130-400); WHITE BLOOD COUNT 7.5 10^3/uL (4.3-11.0)
[2020-07-03 03:27] LABS: ALBUMIN 3.2 GM/DL (3.2-4.5); CHLORIDE 106 MMOL/L (98-107); POTASSIUM 3.7 MMOL/L (3.6-5.0); SODIUM 138 MMOL/L (135-145)
[2020-07-03 03:28] LABS: CALCIUM 8.6 MG/DL (8.5-10.1)
[2020-07-03 03:29] LABS: GLUCOSE 150 MG/DL (70-105)
[2020-07-03 03:30] LABS: TOTAL PROTEIN 5.2 GM/DL (6.4-8.2)
[2020-07-03 03:31] LABS: BILIRUBIN,TOTAL 0.4 MG/DL (0.1-1.0); CARBON DIOXIDE 25 MMOL/L (21-32)
[2020-07-03 03:33] LABS: ALKALINE PHOSPHATASE 92 U/L (40-136); GFR ESTIMATED > 60
[2020-07-03 03:34] LABS: BUN/CREATININE RATIO 27
[2020-07-03 03:36] LABS: ALANINE AMINOTRANSFERASE 22 U/L (0-55)
[2020-07-03] MEDS: TRANEXAMIC ACID INJECTION 1,000 MG in NS (IVPB) 250 ML IV SCH (04:30)
[2020-07-03] MEDS: meTOproloL SUCCINATE 50 MG (TOPROL XL) TAB PO SCH (07:18)
--- NOTE | 2020-07-03 08:04 | Diagnostic Imaging Report ---
EXAMINATION: Chest radiograph, portable AP view. DATE: 07/03/2020 3:45 AM INDICATION: 79-year-old female, right-sided pneumothorax. COMPARISON: July 02, 2020. FINDINGS: There is a right total reverse shoulder prosthesis. There is lumbar spine hardware. There is cervical spine hardware. There is a chronic appearing deformity of the left proximal humerus. Heart size and mediastinal contours are unchanged. There are redemonstrated left-sided rib fractures. There is a small right pneumothorax measuring approximately 1.8 cm from the lung apex. This previously measured approximately 1.6 cm from the lung apex. There is a gradient of attenuation projecting over the right mid and lower lung zone which is unchanged. IMPRESSION: 1. A small right sided pneumothorax measuring 1.8 cm from the lung apex which is similar to the comparison exam which previously measured 1.6 cm. 2. Redemonstrated gradient of attenuation projecting over the right mid and lower lung zone most likely relating to asymmetric overlying soft tissues and a right breast implant. Dictated by: Dictated on workstation # [id number]
--- NOTE | 2020-07-03 08:06 | Diagnostic Imaging Report ---
EXAMINATION: Left shoulder radiograph, single view. COMPARISON: Chest radiographs July 02, 2020. Chest radiograph February 18, 2019. HISTORY: 79-year-old female, left shoulder pain. FINDINGS: There are limitations of the exam relating to the field of view of imaging as well as the single view provided. There is a comminuted fracture of the left proximal humerus which is new since 2019 although of uncertain exact age. Correlating with chest on July 02, 2020, there does appear to be some productive bone response and periosteal reaction. There is a nondisplaced fracture of the posterior glenoid. There is loss of normal appearance of the articulating surface of the humeral head. The acromioclavicular joint is normally aligned. There is a small right pneumothorax. There are redemonstrated left-sided rib fractures. IMPRESSION: 1. Comminuted displaced fracture of the left proximal humerus which is not necessarily acute in age although is new since 2019. 2. Substantial limitations of the exam given single view of imaging as well as the very large [id number] of acquisition. Dictated by: Dictated on workstation # [id number]
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
[2020-07-03] MEDS ORDERED: CLOPIDOGREL 75 MG (PLAVIX) TABLET PO NR (10:15)
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
[2020-07-03] MEDS: PANTOPRAZOLE 40 MG (PROTONIX) VIAL IV SCH (12:08)
[2020-07-03] MEDS: LACTATED RINGERS 1,000 ML IV SCH (13:08)
[2020-07-03] MEDS: ADVAIR HFA 115/21 MCG INHALER 8 GM IH SCH ×2 (15:54→18:29)
[2020-07-04] VITALS (8 sets, daily range): BP systolic 103–172; BP diastolic 35–78
[2020-07-04] MEDS: HYDROmorphone 2 MG/ML VIAL (DILAUDID) IV PRN ×4 (00:28→09:19)
[2020-07-04] MEDS: fentaNYL INJECTION 100 MCG/2 ML AMP IV PRN ×4 (01:11→07:52)
[2020-07-04] MEDS: HYDROcodone/APAP 10 MG/325 MG (LORTAB) TAB PO PRN ×3 (02:15→10:53)
[2020-07-04] MEDS: LACTATED RINGERS 1,000 ML IV SCH ×3 (02:18→22:54)
[2020-07-04 04:39] LABS: BASOPHILS % (AUTO) 0 % (0-10); MEAN CORPUSCULAR VOLUME 94 fL (80-99); NEUTROPHILS % (AUTO) 83 % (42-75)
[2020-07-04 04:41] LABS: EOSINOPHILS # (AUTO) 0.2 10^3/uL (0.0-0.3); EOSINOPHILS % (AUTO) 3 % (0-10); HEMATOCRIT 27 % (35-52); HEMOGLOBIN 8.7 g/dL (11.5-16.0); LYMPHOCYTES # (AUTO) 0.6 10^3/uL (1.0-4.0); LYMPHOCYTES % (AUTO) 6 % (12-44); MEAN CORPUSCULAR HEMOGLOBIN 30 pg (25-34); MEAN CORPUSCULAR HGB CONC 32 g/dL (32-36); MEAN PLATELET VOLUME 11.2 fL (9.0-12.2); MONOCYTES # (AUTO) 0.7 10^3/uL (0.0-1.0); MONOCYTES % (AUTO) 8 % (0-12); NEUTROPHILS # (AUTO) 7.8 10^3/uL (1.8-7.8); PLATELET COUNT 127 10^3/uL (130-400); WHITE BLOOD COUNT 9.4 10^3/uL (4.3-11.0)
[2020-07-04 04:54] LABS: ALBUMIN 3.2 GM/DL (3.2-4.5); CHLORIDE 105 MMOL/L (98-107); POTASSIUM 3.9 MMOL/L (3.6-5.0); SODIUM 137 MMOL/L (135-145)
[2020-07-04 04:55] LABS: CALCIUM 8.3 MG/DL (8.5-10.1)
[2020-07-04 04:56] LABS: GLUCOSE 101 MG/DL (70-105); TOTAL PROTEIN 5.2 GM/DL (6.4-8.2)
[2020-07-04 04:57] LABS: CARBON DIOXIDE 24 MMOL/L (21-32)
[2020-07-04 04:58] LABS: BILIRUBIN,TOTAL 0.5 MG/DL (0.1-1.0)
[2020-07-04 05:00] LABS: ALKALINE PHOSPHATASE 129 U/L (40-136); CREATININE SERUM 0.81 MG/DL (0.60-1.30); GFR ESTIMATED > 60
[2020-07-04 05:01] LABS: BUN/CREATININE RATIO 25
[2020-07-04 05:03] LABS: ALANINE AMINOTRANSFERASE 56 U/L (0-55)
[2020-07-04 05:35] LABS: BAND NEUTROPHILS 7 %; BASOPHILS % (MANUAL) 1 %; EOSINOPHILS % (MANUAL) 4 %; LYMPHOCYTES % (MANUAL) 4 %; MONOCYTES % (MANUAL) 8 %; NEUTROPHILS % (MANUAL) 76 %; RBC MORPH NORMAL
[2020-07-04] MEDS: CLOPIDOGREL 75 MG (PLAVIX) TABLET PO SCH (07:52)
[2020-07-04] MEDS: PANTOPRAZOLE 40 MG (PROTONIX) VIAL IV SCH (07:53)
[2020-07-04] MEDS: meTOproloL SUCCINATE 50 MG (TOPROL XL) TAB PO SCH (09:21)
--- NOTE | 2020-07-04 09:56 | NUR ---
pt was on the phone at this time. pt asked rt to come back later. Addendum: 07/04/20 at 0956 by RAMÓN ROLDAN RT Amended: Links added.
[2020-07-04] MEDS ORDERED: NALOXONE 0.4 MG/ML 1 ML (NARCAN) VIAL IV PRN (10:45)
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
[2020-07-04] MEDS ORDERED: TIOT18CA2 INH (11:26)
[2020-07-04] MEDS ORDERED: LISI40TA PO (11:26)
[2020-07-04] MEDS ORDERED: DOCU-238 PO (11:26)
[2020-07-04] MEDS ORDERED: FERR325T18 PO (11:26)
[2020-07-04] MEDS ORDERED: ATOR40TA70 PO (11:26)
[2020-07-04] MEDS: fentaNYL INJECTION 1,000 MCG in NS (IVPB) 80 ML IV SCH (11:29)
--- NOTE | 2020-07-04 11:31 | NUR ---
SPOKE WITH THE PT, WENT THRU THE EXT MED HISTORY AND CALLED [facility] TO COMPLETE THE MED REC CLOPIDOGREL 75MG WAS LAST FILLED 02-24-2020 #90/90DS LISINOPRIL WAS LAST FILLED 02-28-2020 #90/90DS- BOTH THESE PAST DUE FILL DATES ARE INCLUDED ON THE MED REC OTC MEDS: IRON 325MG FISH OIL ASPIRIN 81MG STOOL SOFTENER
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
[2020-07-04] MEDS ORDERED: [UNRECOGNIZED DRUG - OTHER] DT PRN (12:30)
[2020-07-04] MEDS ORDERED: TRIAMCINOLONE DT PRN (12:30)
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
[2020-07-04] MEDS: ADVAIR HFA 115/21 MCG INHALER 8 GM IH SCH (22:16)
[2020-07-05] VITALS (8 sets, daily range): BP systolic 131–198; BP diastolic 51–86
[2020-07-05] MEDS: HYDROcodone/APAP 10 MG/325 MG (LORTAB) TAB PO PRN (01:23)
[2020-07-05 03:51] LABS: BASOPHILS % (AUTO) 0 % (0-10); HEMOGLOBIN 9.2 g/dL (11.5-16.0); MEAN PLATELET VOLUME 11.3 fL (9.0-12.2)
[2020-07-05 03:53] LABS: EOSINOPHILS # (AUTO) 0.1 10^3/uL (0.0-0.3); EOSINOPHILS % (AUTO) 1 % (0-10); HEMATOCRIT 29 % (35-52); LYMPHOCYTES # (AUTO) 0.6 10^3/uL (1.0-4.0); LYMPHOCYTES % (AUTO) 4 % (12-44); MEAN CORPUSCULAR HEMOGLOBIN 30 pg (25-34); MEAN CORPUSCULAR HGB CONC 32 g/dL (32-36); MEAN CORPUSCULAR VOLUME 93 fL (80-99); MONOCYTES # (AUTO) 0.7 10^3/uL (0.0-1.0); MONOCYTES % (AUTO) 5 % (0-12); NEUTROPHILS # (AUTO) 12.2 10^3/uL (1.8-7.8); NEUTROPHILS % (AUTO) 89 % (42-75); PLATELET COUNT 133 10^3/uL (130-400); WHITE BLOOD COUNT 13.7 10^3/uL (4.3-11.0)
[2020-07-05 04:05] LABS: ALBUMIN 3.3 GM/DL (3.2-4.5); CHLORIDE 103 MMOL/L (98-107); POTASSIUM 3.9 MMOL/L (3.6-5.0); SODIUM 137 MMOL/L (135-145)
[2020-07-05 04:06] LABS: CALCIUM 8.8 MG/DL (8.5-10.1)
[2020-07-05 04:07] LABS: GLUCOSE 110 MG/DL (70-105); TOTAL PROTEIN 5.6 GM/DL (6.4-8.2)
[2020-07-05 04:08] LABS: CARBON DIOXIDE 26 MMOL/L (21-32)
[2020-07-05 04:09] LABS: BILIRUBIN,TOTAL 0.4 MG/DL (0.1-1.0)
[2020-07-05 04:10] LABS: ALKALINE PHOSPHATASE 130 U/L (40-136)
[2020-07-05 04:11] LABS: CREATININE SERUM 0.73 MG/DL (0.60-1.30); GFR ESTIMATED > 60
[2020-07-05 04:12] LABS: BUN/CREATININE RATIO 15
[2020-07-05 04:14] LABS: ALANINE AMINOTRANSFERASE 41 U/L (0-55)
[2020-07-05] MEDS: PANTOPRAZOLE 40 MG (PROTONIX) VIAL IV SCH (08:36)
[2020-07-05] MEDS: meTOproloL SUCCINATE 50 MG (TOPROL XL) TAB PO SCH (08:36)
[2020-07-05] MEDS: CLOPIDOGREL 75 MG (PLAVIX) TABLET PO SCH (08:37)
--- NOTE | 2020-07-05 09:25 | Physical Therapy Daily Note ---
PT Daily Note-Current Subjective Patient is calm and cooperative on this date. Agrees to PT. Mental Status Patient Orientation: Person, Time, Situation Attachments: Oxygen, Esqueda Catheter, IV Transfers SCALE: Activities may be completed with or without assistive devices. 8-Iwhblnrucz-fiysbtf completes the activity by him/herself with no assistance from a helper. 5-Set-up or Clean-up Assistance-helper sets up or cleans up; patient completes activity. [place] assists only prior to or following the activity. 4-Supervision or Touching Assistance-helper provides verbal cues and/or touching/steadying and/or contact guard assistance as patient completes activity. Assistance may be provided throughout the activity or intermittently. 3-Partial/Moderate Assistance-helper does LESS THAN HALF the effort. [place] lifts, holds or supports trunk or limbs, but provides less than half the effort. 2-Substantial/Maximal Assistance-helper does MORE THAN HALF the effort. [place] lifts or holds trunk or limbs and provides more than half the effort. 8-Lgcjddnns-mbzmlp does ALL the effort. Patient does none of the effort to complete the activity. Or, the assistance of 2 or more helpers is required for the patient to complete the activity. If activity was not attempted, code reason: 7-Patient Refused. 9-Not Applicable-not attempted and the patient did not perform the activity before the current illness, exacerbation or injury. 10-Not Attempted due to Environmental Limitations-(lack of equipment, weather restraints, etc.). 88-Not Attempted due to Medical Conditions or Safety Concerns. Lying to Sitting/Side of Bed(Q: 3 Sit to Stand (QC): 3 Chair/Aku-gi-Rzbyk Xfer(QC): 3 Gait Training Does the Patient Walk?: Yes Distance: 10 Walk 10 feet (QC): 4 (CGA) Gait Assistive Device: None functional gait sequence Exercises Supine Ex: Ankle pumps, Quad Set, Heel Slides, Hip abd/add Supine Reps: 12 Seated Therapy Exercises: Ankle pumps, Long arc quads, Hip flexion Seated Reps: 12 Assessment Patient requires time to complete all functional tasks due to pain. Patient improved from yesterday. Increase activity as tolerated by patient. PT Open Soaper Tender Goals Open Soaper Tender Goals PT Open Soaper Tender Goals Time Frame: Jul 16, 2020 Roll Left & Right (QC): 5 Sit to Lying (QC): 5 Lying-Sitting on Side/Bed(QC): 5 Sit to Stand (QC): 5 Chair/Umz-pg-Qaxkc Xfer(QC): 5 Toilet Transfer (QC): 5 Does the Patient Walk: Yes Walk 10 feet (QC): 5 Walk 50ft with 2 Turns (QC): 5 Walk 150 ft (QC): 5 PT Plan Treatment/Plan Treatment Plan: Continue Plan of Care Treatment Plan: Bed Mobility, Education, Functional Activity Maia, Functional Strength, Gait, Safety, Therapeutic Exercise, Transfers Treatment Duration: Jul 16, 2020 Frequency: 6 times per week Estimated Hrs Per Day: .25 hour per day Patient and/or Family Agrees t: Yes Time/GCodes Time In: 832 Time Out: 855 Total Billed Treatment Time: 23 Total Billed Treatment 1 visit FA 9 min EX 14 min CHARITY HO PT Jul 05, 2020 09:25
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
[2020-07-05] MEDS: ADVAIR HFA 115/21 MCG INHALER 8 GM IH SCH ×2 (10:27→18:44)
--- NOTE | 2020-07-05 11:12 | NUR ---
IRF Evaluation Determination: Accepted Chart review complete and findings discussed with Dr. Minor - patient accepted. Given the patient's medical and functional status it does appear she would benefit from an interdisciplinary approach to rehabilitation. Will meet with patient to discuss possibility of admitting to the ARU. If agreeable, anticipate admission, 07/06/20. Thank you for this referral. Addendum: 07/05/20 at 1118 by PERLA CARTWRIGHT SS Please note patient's insurance provider is [facility]; therefore, prior authorization will need to be obtained.
[2020-07-05] MEDS: SENNA W/DOCUSATE (SENOKOT S) TABLET PO SCH ×2 (11:39→20:01)
[2020-07-05] MEDS: LACTULOSE SYRUP 10GM/15ML (ENULOSE) 30ML UDC PO SCH ×2 (11:39→20:01)
--- NOTE | 2020-07-05 11:48 | Occupational Ther Daily Note ---
OT Current Status-Daily Note Subjective Pt alert, sitting in recliner. Pt could not find HEAD PAPER TESTER button for pain meds, found beside leg in chair. Pt c/o being so hot that she felt like she was going to pass out. Nrsg and OT made room cooler and took blankets and socks off of pt. Mental Status/Objective Patient Orientation: Person, Place, Time, Situation Attachments: Esqueda Catheter, IV, Oxygen, Telemetry ADL-Treatment Therapy Code Descriptions/Definitions Functional [place] Measure: 0=Not Assessed/NA 4=Minimal Assistance 1=Total Assistance 5=Supervision or Setup 2=Maximal Assistance 6=Modified [place] 3=Moderate Assistance 7=Complete IndependenceSCALE: Activities may be completed with or without assistive devices. 6-Wpwlcsmbne-zkswnzm completes the activity by him/herself with no assistance from a helper. 5-Set-up or Clean-up Assistance-helper sets up or cleans up; patient completes activity. [place] assists only prior to or following the activity. 4-Supervision or Touching Assistance-helper provides verbal cues and/or touching/steadying and/or contact guard assistance as patient completes activity. Assistance may be provided throughout the activity or intermittently. 3-Partial/Moderate Assistance-helper does LESS THAN HALF the effort. [place] lifts, holds or supports trunk or limbs, but provides less than half the effort. 2-Substantial/Maximal Assistance-helper does MORE THAN HALF the effort. [place] lifts or holds trunk or limbs and provides more than half the effort. 6-Yxkyuzbvp-tangqj does ALL the effort. Patient does none of the effort to com plete the activity. Or, the assistance of 2 or more helpers is required for the patient to complete the activity. If activity was not attempted, code reason: 7-Patient Refused. 9-Not Applicable-not attempted and the patient did not perform the activity before the current illness, exacerbation or injury. 10-Not Attempted due to Environmental Limitations-(lack of equipment, weather restraints, etc.). 88-Not Attempted due to Medical Conditions or Safety Concerns. Eating (QC): 5 (Pt given built up foam handles for gripping utensils easier. Pt able to feed self.) Oral Hygiene (QC): 5 (Per clinical judgement, pt able to complete oral care after set up due to L UE in cast.) Upper Body Dressing (QC): 2 (Per clinical judgment, pt would require assistance to sequence donning/doffing shirt due to L UE and to be able to manipulate clothing over head.) Lower Body Dressing (QC): 2 (Using clinical judgement, pt has difficulty with manipulating clothing due to L UE.) On/Off Footwear: 7 Other Treatment Pt would not attempt to doff socks, nrsg completed. Pt stated that her back hurt. Pt did comply with standing to stretch back and relieve pain. Sit <--> stand with SBA. Standing SBA. Attempted to have pt lift each foot, pt stated that it hurt to bad to complete. Pt then sat back down. Pt resistive to participating in ADL tasks during OT sessions. After session, nrsg in room and pt sitting in recliner. Call light/phone in reach. All needs met in room. OT Short Term Goals Short Term Goals Time Frame: Jul 11, 2020 Eatin Oral hygiene: 4 Toileting hygiene: 3 Shower/bathe self: 3 Upper body dressin Lower body dressin Putting on/taking off footwear: 3 OT Jail Goals Jail Goals Time Frame: Jul 18, 2020 Eating (QC): 6 Oral Hygiene (QC): 5 Toileting Hygiene (QC): 5 Shower/Bathe Self (QC): 4 Upper Body Dressing (QC): 5 Lower Body Dressing (QC): 4 On/Off Footwear (QC): 4 Additional Goals: 1-Demonstrate ADL Tasks, 2-Verbalize Understanding, 3- ImproveStrength/Maia 1=Demonstrate adherence to instructed precautions during ADL tasks. 2=Patient will verbalize/demonstrate understanding of assistive devices/modifications for ADL. 3=Patient will improve strength/tolerance for activity to enable patient to perform ADL's. OT Education/Plan Problem List/Assessment Assessment: Decreased Activ Tolerance, Impaired Self-Care Skills, Restricted Funct UE ROM Discharge Recommendations Plan/Recommendations: Continue POC Treatment Plan/Plan of Care Patient would benefit from OT for education, treatment and training to promote independence in ADL's, mobility, safety and/or upper extremity function for ADL's. Plan of Care: ADL Retraining, Functional Mobility, UE Funct Exercise/Act Treatment Duration: Jul 18, 2020 Frequency: 5 times per week Estimated Hrs Per Day: .25 hour per day Agreement: Yes Rehab Potential: Fair Time/GCodes Start Time: 11:29 Stop Time: 11:39 Total Time Billed (hr/min): 10 Billed Treatment Time 1 visit-FA 1 (10 min) BRITTANY VAZ Jul 05, 2020 11:48
--- NOTE | 2020-07-05 12:23 | NUR ---
Spoke with patients family, updated them on current status. This RN was informed that the patient currently has an "opioid problem" and that if we are giving her them she will just keep on taking them. Dr Minor and Dr Bowling notified. Family also wished to gain DPOA. Social Serviced consult will be added.
[2020-07-05] MEDS: LACTATED RINGERS 1,000 ML IV SCH (12:30)
[2020-07-05] MEDS ORDERED: fentaNYL DRIP PRE-MIX 0 ML IV ONE (12:35)
--- NOTE | 2020-07-05 13:26 | NUR ---
JENELLE GONZALEZ AND CORTNEY CALLED TO GIVE THIS rn AND JENELLE LANCASTER REPORT BEFORE TRANSPORTING THIS PATIENT TO 4TH FLOOR ROOM 420-1.
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
[2020-07-05] MEDS: fentaNYL INJECTION 1,000 MCG in NS (IVPB) 80 ML IV SCH (14:49)
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
--- NOTE | 2020-07-05 15:25 | NUR ---
"RD ASSESSMENT PMHx: COPD; HTN; GERD; CA(breast); PT INTERACTION: Pt was awake and pleasant during nutrition consult for MST score. Pt states current appetite is alright. Note avg PO intake 38% x2d, per chart review. Pt states following a regular diet at home, and has no issues with chewing/swallowing food. Pt states some recent issues with constipation and diarrhea. Note last BM was 07/04, and pt currently on bowel regimen of senna BID, per chart review. Pt states no recent wt changes. Note recent 2# wt gain x3mon, per chart review. Given wt hx, and PO intake, pt does not meet criteria for malnutrition per ASPEN guidelines. Est. kcal needs: 2450-0675 kcal | 30-35 kcal/kg Est. Pro needs: 44-53 g Pro | 1.0-1.2 g Pro/kg PES STATEMENT: Inadequate oral intake (NI-2.1) related to loss of appetite, constipation, and diarrhea, as evidenced by pt interview, and avg PO intake 38% x2d. INTERVENTION: Continue with current diet order of Regular diet. Add Ensure Enlive (vary) to meals TID. Provides 350 kcal and 20 g Pro per serving. Encouraged pt to eat when able. Will continue to follow and reassess as pt needs, intake, and status change. Yobany CHRISTOPHER MS RD LD [phone] cell"
[2020-07-06] VITALS (7 sets, daily range): BP systolic 88–211; BP diastolic 44–96
[2020-07-06] MEDS: LACTATED RINGERS 1,000 ML IV SCH ×2 (02:25→21:19)
[2020-07-06 05:42] LABS: BASOPHILS % (AUTO) 0 % (0-10); EOSINOPHILS # (AUTO) 0.1 10^3/uL (0.0-0.3); EOSINOPHILS % (AUTO) 1 % (0-10); HEMATOCRIT 31 % (35-52); HEMOGLOBIN 10.2 g/dL (11.5-16.0); LYMPHOCYTES # (AUTO) 0.6 10^3/uL (1.0-4.0); LYMPHOCYTES % (AUTO) 4 % (12-44); MEAN CORPUSCULAR HEMOGLOBIN 30 pg (25-34); MEAN CORPUSCULAR HGB CONC 33 g/dL (32-36); MEAN CORPUSCULAR VOLUME 90 fL (80-99); MEAN PLATELET VOLUME 11.3 fL (9.0-12.2); MONOCYTES # (AUTO) 0.9 10^3/uL (0.0-1.0); MONOCYTES % (AUTO) 6 % (0-12); NEUTROPHILS # (AUTO) 12.4 10^3/uL (1.8-7.8); NEUTROPHILS % (AUTO) 88 % (42-75); PLATELET COUNT 157 10^3/uL (130-400)
[2020-07-06 05:54] LABS: ALBUMIN 3.5 GM/DL (3.2-4.5); CHLORIDE 101 MMOL/L (98-107); POTASSIUM 3.3 MMOL/L (3.6-5.0); SODIUM 138 MMOL/L (135-145)
[2020-07-06 05:55] LABS: CALCIUM 9.3 MG/DL (8.5-10.1)
[2020-07-06 05:56] LABS: GLUCOSE 108 MG/DL (70-105); TOTAL PROTEIN 6.3 GM/DL (6.4-8.2)
[2020-07-06 05:57] LABS: CARBON DIOXIDE 27 MMOL/L (21-32)
[2020-07-06 05:58] LABS: BILIRUBIN,TOTAL 0.6 MG/DL (0.1-1.0)
[2020-07-06 05:59] LABS: ALKALINE PHOSPHATASE 130 U/L (40-136)
[2020-07-06 06:00] LABS: CREATININE SERUM 0.64 MG/DL (0.60-1.30); GFR ESTIMATED > 60
[2020-07-06 06:01] LABS: BUN/CREATININE RATIO 13
[2020-07-06 06:03] LABS: ALANINE AMINOTRANSFERASE 31 U/L (0-55)
[2020-07-06] MEDS: ADVAIR HFA 115/21 MCG INHALER 8 GM IH SCH ×2 (08:02→21:10)
[2020-07-06] MEDS: PANTOPRAZOLE 40 MG (PROTONIX) VIAL IV SCH (08:12)
[2020-07-06] MEDS: CLOPIDOGREL 75 MG (PLAVIX) TABLET PO SCH (08:12)
[2020-07-06] MEDS: SENNA W/DOCUSATE (SENOKOT S) TABLET PO SCH ×2 (08:12→21:12)
[2020-07-06] MEDS: meTOproloL SUCCINATE 50 MG (TOPROL XL) TAB PO SCH ×2 (08:12→21:14)
[2020-07-06] MEDS: POTASSIUM CL 10MEQ/50ML IVPB 50 ML IV SCH ×4 (08:13→12:51)
[2020-07-06] MEDS: LACTULOSE SYRUP 10GM/15ML (ENULOSE) 30ML UDC PO SCH ×2 (08:25→21:12)
[2020-07-06] MEDS ORDERED: amLODIPine 5 MG (NORVASC) TAB PO NR (10:30)
[2020-07-06] MEDS ORDERED: RT-ALBUTEROL/IPRATROPIUM 3 ML (DUONEB) VIAL IH PRN (10:30)
[2020-07-06] MEDS ORDERED: NICOTINE 14 MG (NICODERM) PATCH TD SCH (10:30)
[2020-07-06] MEDS ORDERED: NICOTINE 21 MG (NICODERM) PATCH TD NR (10:30)
[2020-07-06] MEDS ORDERED: amLODIPine 5 MG (NORVASC) TAB PO SCH (10:30)
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
--- NOTE | 2020-07-06 10:57 | NUR ---
IRF Met with patient to discuss details specific to rehabilitation program. Patient is agreeable to admission and required therapy regimen. SW notified. Prior authorization process initiated. Will continue to follow.
[2020-07-06] MEDS: DOCUSATE SODIUM 100 MG (COLACE) CAP PO SCH (11:25)
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
--- NOTE | 2020-07-06 13:40 | Diagnostic Imaging Report ---
INDICATION: Right 1st rib fracture and pulmonary contusion. TIME OF EXAM: 1:08 PM. COMPARISON: 07/03/2020. FINDINGS: The heart size is stable. The lungs appear to be clear. The right apical pneumothorax has significantly reduced in size and is now trace. No effusion is seen. Age indeterminate left-sided rib fractures are noted. The right 1st rib fracture is not well-seen on today's study. There are postop changes of the right shoulder. IMPRESSION: Trace right apical pneumothorax, decreased in size when compared with the exam 3 days earlier. Dictated by: Dictated on workstation # [id number]
--- NOTE | 2020-07-06 14:08 | Physical Therapy Daily Note ---
PT Daily Note-Current Subjective Patient in recliner pre tx, agrees to PT, has no complaints of pain but has pain in left leg with ambulation. Appearance Patient in bed post tx with nurse call, phone, tray, all needs met. Mental Status Patient Orientation: Person, Place, Situation Attachments: Esqueda Catheter, IV Transfers SCALE: Activities may be completed with or without assistive devices. 5-Gitbwdsgjq-ckypixm completes the activity by him/herself with no assistance from a helper. 5-Set-up or Clean-up Assistance-helper sets up or cleans up; patient completes activity. [place] assists only prior to or following the activity. 4-Supervision or Touching Assistance-helper provides verbal cues and/or touching/steadying and/or contact guard assistance as patient completes activity. Assistance may be provided throughout the activity or intermittently. 3-Partial/Moderate Assistance-helper does LESS THAN HALF the effort. [place] lifts, holds or supports trunk or limbs, but provides less than half the effort. 2-Substantial/Maximal Assistance-helper does MORE THAN HALF the effort. [place] lifts or holds trunk or limbs and provides more than half the effort. 5-Kswijojbt-dwnydf does ALL the effort. Patient does none of the effort to complete the activity. Or, the assistance of 2 or more helpers is required for the patient to complete the activity. If activity was not attempted, code reason: 7-Patient Refused. 9-Not Applicable-not attempted and the patient did not perform the activity before the current illness, exacerbation or injury. 10-Not Attempted due to Environmental Limitations-(lack of equipment, weather restraints, etc.). 88-Not Attempted due to Medical Conditions or Safety Concerns. Roll Left & Right (QC): 6 Sit to Lying (QC): 3 Sit to Stand (QC): 4 Chair/Ojf-xg-Srlwa Xfer(QC): 4 min assist sit to supine, sit to stand CGA Gait Training Distance: 20' Walk 10 feet (QC): 4 Gait Persons Needed: 1 Gait Assistive Device: FWW slow but steady ambulation Exercises Supine Ex: Ankle pumps, Heel Slides Supine Reps: 15 Treatments transfers, ambulation, LE exercise Assessment Current Status: Fair Progress improving ambulation PT Digital Court Reporter Goals Digital Court Reporter Goals PT Digital Court Reporter Goals Time Frame: Jul 16, 2020 Roll Left & Right (QC): 5 Sit to Lying (QC): 5 Lying-Sitting on Side/Bed(QC): 5 Sit to Stand (QC): 5 Chair/Hpa-oh-Yrjwy Xfer(QC): 5 Toilet Transfer (QC): 5 Does the Patient Walk: Yes Walk 10 feet (QC): 5 Walk 50ft with 2 Turns (QC): 5 Walk 150 ft (QC): 5 PT Plan Problem List Problem List: Activity Tolerance, Functional Strength, Safety, Balance, Gait, Transfer, Bed Mobility, ROM Treatment/Plan Treatment Plan: Continue Plan of Care Treatment Plan: Bed Mobility, Education, Functional Activity Maia, Functional Strength, Gait, Safety, Therapeutic Exercise, Transfers Treatment Duration: Jul 16, 2020 Frequency: 6 times per week Estimated Hrs Per Day: .25 hour per day Patient and/or Family Agrees t: Yes Safety Risks/Education Patient Education: Gait Training, Transfer Techniques, Correct Positioning, Safety Issues Teaching Recipient: Patient Teaching Methods: Demonstration, Discussion Response to Teaching: Reinforcement Needed Time/GCodes Time In: 1350 Time Out: 1415 Total Billed Treatment Time: 15 Total Billed Treatment 1 visit FA AMARILIS BROWN PT Jul 06, 2020 14:08
[2020-07-06] MEDS: GABAPENTIN 600 MG (NEURONTIN) TAB PO SCH ×2 (14:09→21:13)
--- NOTE | 2020-07-06 14:23 | Occupational Ther Daily Note ---
OT Current Status-Daily Note Subjective Pt alert, sitting in recliner. Pt states that she has been in chair since 8 am. Pt agrees to therapy. Mental Status/Objective Patient Orientation: Person, Place, Time, Situation Attachments: IV ADL-Treatment Therapy Code Descriptions/Definitions Functional [place] Measure: 0=Not Assessed/NA 4=Minimal Assistance 1=Total Assistance 5=Supervision or Setup 2=Maximal Assistance 6=Modified [place] 3=Moderate Assistance 7=Complete IndependenceSCALE: Activities may be completed with or without assistive devices. 4-Fbcqvafuso-afcvmlq completes the activity by him/herself with no assistance from a helper. 5-Set-up or Clean-up Assistance-helper sets up or cleans up; patient completes activity. [place] assists only prior to or following the activity. 4-Supervision or Touching Assistance-helper provides verbal cues and/or touching/steadying and/or contact guard assistance as patient completes a ctivity. Assistance may be provided throughout the activity or intermittently. 3-Partial/Moderate Assistance-helper does LESS THAN HALF the effort. Amalia lifts, holds or supports trunk or limbs, but provides less than half the effort. 2-Substantial/Maximal Assistance-helper does MORE THAN HALF the effort. Amalia lifts or holds trunk or limbs and provides more than half the effort. 6-Hdjjopwfy-lrurdy does ALL the effort. Patient does none of the effort to complete the activity. Or, the assistance of 2 or more helpers is required for the patient to complete the activity. If activity was not attempted, code reason: 7-Patient Refused. 9-Not Applicable-not attempted and the patient did not perform the activity before the current illness, exacerbation or injury. 10-Not Attempted due to Environmental Limitations-(lack of equipment, weather restraints, etc.). 88-Not Attempted due to Medical Conditions or Safety Concerns. Other Treatment Pt attempted to don socks with figure four technique. Pt unable to complete due, assist given to don socks. Pt then was able to ambulate with PT while OT manipulated tubing around room with CGA. Independent with EOB to supine and complete own bed mobility. After session, nrsg in room and pt lying in supine with call light/phone in reach. All needs met in room. OT Short Term Goals Short Term Goals Time Frame: Jul 11, 2020 Eatin Oral hygiene: 4 Toileting hygiene: 3 Shower/bathe self: 3 Upper body dressin Lower body dressin Putting on/taking off footwear: 3 OT Inspector Set Up And Lay Out Goals Alf Goals Time Frame: Jul 18, 2020 Eating (QC): 6 Oral Hygiene (QC): 5 Toileting Hygiene (QC): 5 Shower/Bathe Self (QC): 4 Upper Body Dressing (QC): 5 Lower Body Dressing (QC): 4 On/Off Footwear (QC): 4 Additional Goals: 1-Demonstrate ADL Tasks, 2-Verbalize Understanding, 3- ImproveStrength/Maia 1=Demonstrate adherence to instructed precautions during ADL tasks. 2=Patient will verbalize/demonstrate understanding of assistive d evices/modifications for ADL. 3=Patient will improve strength/tolerance for activity to enable patient to perform ADL's. OT Education/Plan Problem List/Assessment Assessment: Decreased Activ Tolerance, Decreased UE Strength, Impaired Self- Care Skills, Restricted Funct UE ROM Discharge Recommendations Plan/Recommendations: Continue POC Treatment Plan/Plan of Care Patient would benefit from OT for education, treatment and training to promote independence in ADL's, mobility, safety and/or upper extremity function for ADL's. Plan of Care: ADL Retraining, Functional Mobility, UE Funct Exercise/Act Treatment Duration: Jul 18, 2020 Frequency: 5 times per week Estimated Hrs Per Day: .25 hour per day Agreement: Yes Rehab Potential: Fair Time/GCodes Start Time: 13:50 Stop Time: 14:05 Total Time Billed (hr/min): 15 Billed Treatment Time 1 visit-FA 1 (15 min) BRITTANY VAZ Jul 06, 2020 14:23
[2020-07-06] MEDS: UMECLIDINIUM BROMIDE (INCRUSE ELLIPTA) 7'S IH SCH ×2 (14:27→17:51)
--- NOTE | 2020-07-06 15:41 | NUR ---
wasted 70 mls of fentanyl from pt rn intern. valdez monroy witnessed.
--- NOTE | 2020-07-06 16:33 | NUR ---
IRF Zack has denied admission to the ARU. Denial Reason: "The patient does not require physician oversight at least three times a week. Her needs can be met at a lower level of care, such as SNF." SW notified.
[2020-07-06] MEDS: HYDROmorphone 2 MG/ML VIAL (DILAUDID) IV PRN ×2 (16:42→23:24)
[2020-07-06] MEDS ORDERED: lisINopril 40 MG (PRINIVIL) TABLET PO SCH (21:00)
[2020-07-06] MEDS: PRAMIPEXOLE 0.125 MG (MIRAPEX) TABLET PO SCH (21:11)
[2020-07-06] MEDS: ASPIRIN E.C. 81 MG (ECOTRIN) TAB PO SCH (21:12)
[2020-07-06] MEDS: traZODone 150 MG (DESYREL) TABLET PO SCH (21:13)
[2020-07-06] MEDS: PANTOPRAZOLE 40 MG (PROTONIX) TAB PO SCH (21:14)
[2020-07-06] MEDS: OMEGA 3 (FISH OIL) 1000 MG CAP PO SCH (21:14)
[2020-07-06] MEDS: HYDROcodone/APAP 10 MG/325 MG (LORTAB) TAB PO PRN (22:47)
--- NOTE | 2020-07-07 00:15 | NUR ---
NOTIFIED DR. CAMARGO OF PT'S B/P OF 88/44 TAKEN MANUALLY. PT DENIED ANY COMPLAINTS AT TIME. NO NEW ORDERS RECEIVED. MONITOR ONLY.
[2020-07-07] MEDS: HYDROmorphone 2 MG/ML VIAL (DILAUDID) IV PRN (01:24)
[2020-07-07 04:29] VITALS: BP 90/42
[2020-07-07 06:40] LABS: BASOPHILS % (AUTO) 1 % (0-10); EOSINOPHILS # (AUTO) 0.2 10^3/uL (0.0-0.3); EOSINOPHILS % (AUTO) 4 % (0-10); HEMATOCRIT 30 % (35-52); HEMOGLOBIN 9.5 g/dL (11.5-16.0); LYMPHOCYTES # (AUTO) 0.6 10^3/uL (1.0-4.0); LYMPHOCYTES % (AUTO) 8 % (12-44); MEAN CORPUSCULAR HEMOGLOBIN 30 pg (25-34); MEAN CORPUSCULAR HGB CONC 32 g/dL (32-36); MEAN CORPUSCULAR VOLUME 92 fL (80-99); MEAN PLATELET VOLUME 11.3 fL (9.0-12.2); MONOCYTES # (AUTO) 0.5 10^3/uL (0.0-1.0); MONOCYTES % (AUTO) 7 % (0-12); NEUTROPHILS # (AUTO) 5.5 10^3/uL (1.8-7.8); NEUTROPHILS % (AUTO) 80 % (42-75); PLATELET COUNT 179 10^3/uL (130-400); WHITE BLOOD COUNT 6.9 10^3/uL (4.3-11.0)
[2020-07-07] MEDS: ADVAIR HFA 115/21 MCG INHALER 8 GM IH SCH (06:56)
[2020-07-07] MEDS: UMECLIDINIUM BROMIDE (INCRUSE ELLIPTA) 7'S IH SCH (06:56)
[2020-07-07 06:59] LABS: ALBUMIN 3.2 GM/DL (3.2-4.5); BILIRUBIN,TOTAL 0.5 MG/DL (0.1-1.0); CALCIUM 9.2 MG/DL (8.5-10.1); CREATININE SERUM 1.03 MG/DL (0.60-1.30); POTASSIUM 3.6 MMOL/L (3.6-5.0); TOTAL PROTEIN 5.8 GM/DL (6.4-8.2)
[2020-07-07 08:00] VITALS: BP 104/46
[2020-07-07] MEDS: GABAPENTIN 600 MG (NEURONTIN) TAB PO SCH ×3 (08:47→19:37)
[2020-07-07] MEDS: NICOTINE 21 MG (NICODERM) PATCH TD SCH (08:47)
[2020-07-07] MEDS: SENNA W/DOCUSATE (SENOKOT S) TABLET PO SCH ×2 (08:47→19:36)
[2020-07-07] MEDS: LACTATED RINGERS 1,000 ML IV SCH ×2 (08:48→23:39)
[2020-07-07] MEDS: LACTULOSE SYRUP 10GM/15ML (ENULOSE) 30ML UDC PO SCH ×2 (08:48→19:36)
[2020-07-07] MEDS: NICOTINE PATCH REMOVAL TP SCH (08:48)
[2020-07-07] MEDS ORDERED: amLODIPine 5 MG (NORVASC) TAB PO SCH (09:00)
[2020-07-07] MEDS ORDERED: FERROUS SULF 325 MG (IRON) TAB PO SCH (09:00)
[2020-07-07] MEDS: HYDROcodone/APAP 10 MG/325 MG (LORTAB) TAB PO PRN ×4 (09:35→23:39)
--- NOTE | 2020-07-07 09:35 | NUR ---
LORTAB 10 PO FOR PAIN.
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
[2020-07-07 12:00] VITALS: BP 119/52
--- NOTE | 2020-07-07 12:51 | NUR ---
CM/SS follow up. CM/SS received a notification from September in Inpatient Rehab that the patient's insurance declined. The patient would still benefit from skilled therapies. The patient was sitting in the chair resting. She woke easily to this sw speaking. The patient reports that she is in pain today and is upset due to one of her pain medications being discontinued. CM/SS informed the patient that her insurance declined. She verbalized understanding. CM/SS discussed doing a skilled stay at a nursing facility. The patient reports "absolutely not". CM/SS discussed home health when able to return. The physician rounded on patient while this sw was present. It was decided to send a referral to [facility] to continue therapies. The patient was agreeable with plan. CM/SS contacted Jennifer the Swing Bed Coordinator to make referral. CM/SS faxed clinical. Awaiting answer. CM/SS will continue to follow.
--- NOTE | 2020-07-07 13:58 | NUR ---
LORTAB PO FOR PAIN. PT UPSET THAT DR. GOINS'Ana Maria DILAUDID AND THAT PAIN MED MUST BE ASKED FOR AND NOT AROUND THE CLOCK. ALSO REFUSED PT.
--- NOTE | 2020-07-07 14:25 | Physical Therapy Daily Note ---
PT Daily Note-Current Subjective Patient in recliner pre tx, agrees to PT, has 10/10 pain in right shoulder and right knee, states she had pain meds about 10 min ago. Appearance Patient in recliner post tx with nurse call, phone, tray, all needs met. Mental Status Patient Orientation: Person, Place, Situation Attachments: Oxygen, IV Transfers SCALE: Activities may be completed with or without assistive devices. 2-Vguxesirol-jhyyqpo completes the activity by him/herself with no assistance fr om a helper. 5-Set-up or Clean-up Assistance-helper sets up or cleans up; patient completes activity. [place] assists only prior to or following the activity. 4-Supervision or Touching Assistance-helper provides verbal cues and/or touching/steadying and/or contact guard assistance as patient completes activity. Assistance may be provided throughout the activity or intermittently. 3-Partial/Moderate Assistance-helper does LESS THAN HALF the effort. [place] lifts, holds or supports trunk or limbs, but provides less than half the effort. 2-Substantial/Maximal Assistance-helper does MORE THAN HALF the effort. [place] lifts or holds trunk or limbs and provides more than half the effort. 5-Amfrtoqnh-aqdcah does ALL the effort. Patient does none of the effort to complete the activity. Or, the assistance of 2 or more helpers is required for the patient to complete the activity. If activity was not attempted, code reason: 7-Patient Refused. 9-Not Applicable-not attempted and the patient did not perform the activity before the current illness, exacerbation or injury. 10-Not Attempted due to Environmental Limitations-(lack of equipment, weather restraints, etc.). 88-Not Attempted due to Medical Conditions or Safety Concerns. Sit to Stand (QC): 4 Chair/Rxg-cm-Fedrl Xfer(QC): 4 SBA Gait Training Distance: 50' Walk 10 feet (QC): 4 Walk 50 ft with 2 Turns(QC): 4 Gait Persons Needed: 1 Gait Assistive Device: FWW SBA, patient has some difficulty with turning using the walker but she was able to do it without assist Exercises Seated Therapy Exercises: Ankle pumps, Long arc quads, Hip flexion Seated Reps: 20 Treatments ambulation, transfers, LE exercise Assessment Current Status: Fair Progress improving endurance, SBA with ambulation PT Heatset Winder Operator Goals Heatset Winder Operator Goals PT Fpc Goals Time Frame: Jul 16, 2020 Roll Left & Right (QC): 5 Sit to Lying (QC): 5 Lying-Sitting on Side/Bed(QC): 5 Sit to Stand (QC): 5 Chair/Bjh-gm-Nrbxi Xfer(QC): 5 Toilet Transfer (QC): 5 Does the Patient Walk: Yes Walk 10 feet (QC): 5 Walk 50ft with 2 Turns (QC): 5 Walk 150 ft (QC): 5 PT Plan Problem List Problem List: Activity Tolerance, Functional Strength, Safety, Balance, Gait, Transfer, Bed Mobility, ROM Treatment/Plan Treatment Plan: Continue Plan of Care Treatment Plan: Bed Mobility, Education, Functional Activity Maia, Functional Strength, Gait, Safety, Therapeutic Exercise, Transfers Treatment Duration: Jul 16, 2020 Frequency: 6 times per week Estimated Hrs Per Day: .25 hour per day Patient and/or Family Agrees t: Yes Safety Risks/Education Patient Education: Gait Training, Transfer Techniques, Correct Positioning, Safety Issues Teaching Recipient: Patient Teaching Methods: Demonstration, Discussion Response to Teaching: Reinforcement Needed Time/GCodes Time In: 1408 Time Out: 1420 Total Billed Treatment Time: 12 Total Billed Treatment 1 visit GT 12' AMARILIS LEE PT Jul 07, 2020 14:25
--- NOTE | 2020-07-07 14:26 | Occupational Ther Daily Note ---
OT Current Status-Daily Note Subjective No pain reported. Appearance Pt. up in chair. Alert and oriented. Agrees to work with OT. Mental Status/Objective Patient Orientation: Person, Place, Time, Situation ADL-Treatment Therapy Code Descriptions/Definitions Functional [place] Measure: 0=Not Assessed/NA 4=Minimal Assistance 1=Total Assistance 5=Supervision or Setup 2=Maximal Assistance 6=Modified [place] 3=Moderate Assistance 7=Complete IndependenceSCALE: Activities may be completed with or without assistive devices. 8-Wqswbgdhzd-jomjjph completes the activity by him/herself with no assistance from a helper. 5-Set-up or Clean-up Assistance-helper sets up or cleans up; patient completes activity. [place] assists only prior to or following the activity. 4-Supervision or Touching Assistance-helper provides verbal cues and/or touching/steadying and/or contact guard assistance as patient completes activity. Assistance may be provided throughout the activity or intermittently. 3-Partial/Moderate Assistance-helper does LESS THAN HALF the effort. [place] lifts, holds or supports trunk or limbs, but provides less than half the effort. 2-Substantial/Maximal Assistance-helper does MORE THAN HALF the effort. [place] lifts or holds trunk or limbs and provides more than half the effort. 8-Izzmtdvas-duwdme does ALL the effort. Patient does none of the effort to complete the activity. Or, the assistance of 2 or more helpers is required for the patient to complete the activity. If activity was not attempted, code reason: 7-Patient Refused. 9-Not Applicable-not attempted and the patient did not perform the activity before the current illness, exacerbation or injury. 10-Not Attempted due to Environmental Limitations-(lack of equipment, weather restraints, etc.). 88-Not Attempted due to Medical Conditions or Safety Concerns. Shower/Bathe Self (QC): 3 (Mod assistance overall for sponge bath while up in chair. Pt. required assistance to wash left arm, rear peter area, and bilateral feet. She is able to wash all other parts.) Pt. agrees to sponge bath up in chair. Pt. is able to stand with CGA, and take several steps with min assist, without AE. She dons fresh hospital gown. OT gently brushes hair. Pillows are placed under bilateral UE for comfort and positioning. LE elevated. Pt. with call light and table. All needs met. Education OT Patient Education: Correct positioning, Modified ADL techniques, Progress toward Goal/Update tx plan, Purpose of tx/functional activities, Reviewed precautions, Rehab process, Transfer techniques Teaching Recipient: Patient Teaching Methods: Demonstration, Discussion Response to Teaching: Verbalize Understanding, Return Demonstration OT Short Term Goals Short Term Goals Time Frame: Jul 11, 2020 Eatin Oral hygiene: 4 Toileting hygiene: 3 Shower/bathe self: 3 Upper body dressin Lower body dressin Putting on/taking off footwear: 3 OT Chcf Goals Traffic Chief Goals Time Frame: Jul 18, 2020 Eating (QC): 6 Oral Hygiene (QC): 5 Toileting Hygiene (QC): 5 Shower/Bathe Self (QC): 4 Upper Body Dressing (QC): 5 Lower Body Dressing (QC): 4 On/Off Footwear (QC): 4 Additional Goals: 1-Demonstrate ADL Tasks, 2-Verbalize Understanding, 3- ImproveStrength/Maia 1=Demonstrate adherence to instructed precautions during ADL tasks. 2=Patient will verbalize/demonstrate understanding of assistive devices/modifications for ADL. 3=Patient will improve strength/tolerance for activity to enable patient to perform ADL's. OT Education/Plan Problem List/Assessment Assessment: Decreased Activ Tolerance, Decreased UE Strength, Impaired I ADL's, Impaired Self-Care Skills Discharge Recommendations Plan/Recommendations: Continue POC Therapy Discharge Recommendati: Post Acute OT Treatment Plan/Plan of Care Treatment,Training & Education: Yes Patient would benefit from OT for education, treatment and training to promote independence in ADL's, mobility, safety and/or upper extremity function for ADL's. Plan of Care: ADL Retraining, Functional Mobility, UE Funct Exercise/Act Treatment Duration: Jul 18, 2020 Frequency: 5 times per week Estimated Hrs Per Day: .25 hour per day Agreement: Yes Rehab Potential: Fair Time/GCodes Start Time: 11:50 Stop Time: 12:08 Total Time Billed (hr/min): 18 Billed Treatment Time 1, ADL MARTINA ERICKSON OT Jul 07, 2020 14:25
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
[2020-07-07 16:28] VITALS: BP 104/53
[2020-07-07] MEDS: OMEGA 3 (FISH OIL) 1000 MG CAP PO SCH (19:37)
[2020-07-07] MEDS: PRAMIPEXOLE 0.125 MG (MIRAPEX) TABLET PO SCH (19:37)
[2020-07-07] MEDS: traZODone 150 MG (DESYREL) TABLET PO SCH (19:37)
[2020-07-07] MEDS: ASPIRIN E.C. 81 MG (ECOTRIN) TAB PO SCH (19:37)
[2020-07-07] MEDS: PANTOPRAZOLE 40 MG (PROTONIX) TAB PO SCH (19:37)
[2020-07-07] MEDS: CLOPIDOGREL 75 MG (PLAVIX) TABLET PO SCH (19:38)
[2020-07-07] MEDS: meTOproloL SUCCINATE 50 MG (TOPROL XL) TAB PO SCH (19:56)
[2020-07-07 20:15] VITALS: BP 94/50
[2020-07-07 23:40] VITALS: BP 90/51
[2020-07-08] MEDS: HYDROcodone/APAP 10 MG/325 MG (LORTAB) TAB PO PRN ×4 (04:16→17:14)
[2020-07-08 04:17] VITALS: BP 117/61
[2020-07-08 06:05] LABS: BASOPHILS # (AUTO) 0.1 10^3/uL (0.0-0.1); BASOPHILS % (AUTO) 1 % (0-10); EOSINOPHILS # (AUTO) 0.4 10^3/uL (0.0-0.3); EOSINOPHILS % (AUTO) 8 % (0-10); HEMATOCRIT 28 % (35-52); HEMOGLOBIN 8.9 g/dL (11.5-16.0); LYMPHOCYTES # (AUTO) 0.8 10^3/uL (1.0-4.0); LYMPHOCYTES % (AUTO) 14 % (12-44); MEAN CORPUSCULAR HEMOGLOBIN 30 pg (25-34); MEAN CORPUSCULAR HGB CONC 32 g/dL (32-36); MEAN CORPUSCULAR VOLUME 94 fL (80-99); MEAN PLATELET VOLUME 11.1 fL (9.0-12.2); MONOCYTES # (AUTO) 0.8 10^3/uL (0.0-1.0); MONOCYTES % (AUTO) 14 % (0-12); NEUTROPHILS # (AUTO) 3.4 10^3/uL (1.8-7.8); NEUTROPHILS % (AUTO) 63 % (42-75); PLATELET COUNT 185 10^3/uL (130-400); WHITE BLOOD COUNT 5.5 10^3/uL (4.3-11.0)
[2020-07-08 06:13] LABS: POTASSIUM 3.9 MMOL/L (3.6-5.0)
[2020-07-08 06:14] LABS: CALCIUM 8.6 MG/DL (8.5-10.1)
[2020-07-08 06:15] LABS: TOTAL PROTEIN 5.4 GM/DL (6.4-8.2)
[2020-07-08 06:17] LABS: BILIRUBIN,TOTAL 0.3 MG/DL (0.1-1.0)
[2020-07-08 06:19] LABS: CREATININE SERUM 1.22 MG/DL (0.60-1.30)
[2020-07-08] MEDS: UMECLIDINIUM BROMIDE (INCRUSE ELLIPTA) 7'S IH SCH (08:12)
[2020-07-08 08:20] VITALS: BP 87/51
[2020-07-08] MEDS: GABAPENTIN 600 MG (NEURONTIN) TAB PO SCH ×2 (08:24→20:59)
[2020-07-08] MEDS: LACTATED RINGERS 1,000 ML IV SCH (08:24)
[2020-07-08] MEDS: NICOTINE 21 MG (NICODERM) PATCH TD SCH (08:24)
[2020-07-08] MEDS: NICOTINE PATCH REMOVAL TP SCH (08:25)
[2020-07-08] MEDS: DOCUSATE SODIUM 100 MG (COLACE) CAP PO SCH (08:25)
[2020-07-08] MEDS: SENNA W/DOCUSATE (SENOKOT S) TABLET PO SCH ×2 (08:25→20:59)
[2020-07-08] MEDS: LACTULOSE SYRUP 10GM/15ML (ENULOSE) 30ML UDC PO SCH ×2 (08:25→21:00)
--- NOTE | 2020-07-08 09:47 | Physical Therapy Daily Note ---
PT Daily Note-Current Subjective Patient agrees to PT. No c/o. Mental Status Patient Orientation: Person, Time, Situation Attachments: Oxygen Transfers SCALE: Activities may be completed with or without assistive devices. 4-Rhhwvqoucn-ojhhbjl completes the activity by him/herself with no assistance from a helper. 5-Set-up or Clean-up Assistance-helper sets up or cleans up; patient completes activity. [place] assists only prior to or following the activity. 4-Supervision or Touching Assistance-helper provides verbal cues and/or touching/steadying and/or contact guard assistance as patient completes activity. Assistance may be provided throughout the activity or intermittently. 3-Partial/Moderate Assistance-helper does LESS THAN HALF the effort. [place] lifts, holds or supports trunk or limbs, but provides less than half the effort. 2-Substantial/Maximal Assistance-helper does MORE THAN HALF the effort. [place] lifts or holds trunk or limbs and provides more than half the effort. 7-Wtrblhouz-szbfly does ALL the effort. Patient does none of the effort to complete the activity. Or, the assistance of 2 or more helpers is required for the patient to complete the activity. If activity was not attempted, code reason: 7-Patient Refused. 9-Not Applicable-not attempted and the patient did not perform the activity before the current illness, exacerbation or injury. 10-Not Attempted due to Environmental Limitations-(lack of equipment, weather restraints, etc.). 88-Not Attempted due to Medical Conditions or Safety Concerns. Lying to Sitting/Side of Bed(Q: 5 Sit to Stand (QC): 3 Chair/Gnj-qx-Hggyp Xfer(QC): 3 Gait Training Does the Patient Walk?: Yes Distance: 225' Walk 10 feet (QC): 3 Walk 50 ft with 2 Turns(QC): 3 Walk 150 ft (QC): 3 Gait Assistive Device: FWW step to antalgic gait due to left knee pain Exercises Seated Therapy Exercises: Ankle pumps, Long arc quads, Hip flexion Seated Reps: 15 Assessment Patient tolerated treatment well and is up in recliner with needs met. PT to i ncrease activity as tolerated by patient. PT Senior Naval Parachutist Goals Senior Naval Parachutist Goals PT Halfway Goals Time Frame: Jul 16, 2020 Roll Left & Right (QC): 5 Sit to Lying (QC): 5 Lying-Sitting on Side/Bed(QC): 5 Sit to Stand (QC): 5 Chair/Ung-ep-Uxyxg Xfer(QC): 5 Toilet Transfer (QC): 5 Does the Patient Walk: Yes Walk 10 feet (QC): 5 Walk 50ft with 2 Turns (QC): 5 Walk 150 ft (QC): 5 PT Plan Treatment/Plan Treatment Plan: Continue Plan of Care Treatment Plan: Bed Mobility, Education, Functional Activity Maia, Functional Strength, Gait, Safety, Therapeutic Exercise, Transfers Treatment Duration: Jul 16, 2020 Frequency: 6 times per week Estimated Hrs Per Day: .25 hour per day Patient and/or Family Agrees t: Yes Time/GCodes Time In: 847 Time Out: 859 Total Billed Treatment Time: 12 Total Billed Treatment 1 visit GT 12 min CHARITY HO PT Jul 08, 2020 09:47
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
--- NOTE | 2020-07-08 11:33 | NUR ---
CM/SS follow up. CM/SS faxed updated clinical to [facility] for [facility]. Awaiting acceptance/denial.
[2020-07-08 12:00] VITALS: BP 101/52
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
--- NOTE | 2020-07-08 14:11 | Occupational Ther Daily Note ---
OT Current Status-Daily Note Subjective Pt alert, sitting in recliner. Pt agree to therapy. Pt states that L fingers/arm is in pain, nrsg getting pain meds. Mental Status/Objective Patient Orientation: Person, Place, Time, Situation Attachments: IV, Oxygen ADL-Treatment Nrsg states that they had given bath and oral care earlier today. Pt requires assistance to set up for bathing and assistance to complete lower body dressing. Therapy Code Descriptions/Definitions Functional Wilkin Measure: 0=Not Assessed/NA 4=Minimal Assistance 1=Total Assistance 5=Supervision or Setup 2=Maximal Assistance 6=Modified Wilkin 3=Moderate Assistance 7=Complete IndependenceSCALE: Activities may be completed with or without assistive devices. 3-Vpyrukfsrf-huxlqwr completes the activity by him/herself with no assistance from a helper. 5-Set-up or Clean-up Assistance-helper sets up or cleans up; patient completes activity. [place] assists only prior to or following the activity. 4-Supervision or Touching Assistance-helper provides verbal cues and/or touching /steadying and/or contact guard assistance as patient completes activity. Assistance may be provided throughout the activity or intermittently. 3-Partial/Moderate Assistance-helper does LESS THAN HALF the effort. [place]wick lifts, holds or supports trunk or limbs, but provides less than half the effort. 2-Substantial/Maximal Assistance-helper does MORE THAN HALF the effort. [place] lifts or holds trunk or limbs and provides more than half the effort. 0-Yftsrynzk-bdcdxe does ALL the effort. Patient does none of the effort to complete the activity. Or, the assistance of 2 or more helpers is required for the patient to complete the activity. If activity was not attempted, code reason: 7-Patient Refused. 9-Not Applicable-not attempted and the patient did not perform the activity before the current illness, exacerbation or injury. 10-Not Attempted due to Environmental Limitations-(lack of equipment, weather restraints, etc.). 88-Not Attempted due to Medical Conditions or Safety Concerns. Other Treatment Pt able to complete B shldr elevation and scapular retraction 10x's each. R shldr abd 10x's. B elbow flexion 10x's L 15x's R. Pt only able to complete ~90* shldr R flexion and abduction due to previous surgery. SBA for sit to stand and to transfer from recliner to bed. Independent for bed mobility. After session, pt lying in bed with call light/phone in reach. All needs met in room. OT Short Term Goals Short Term Goals Time Frame: Jul 11, 2020 Eatin Oral hygiene: 4 Toileting hygiene: 3 Shower/bathe self: 3 Upper body dressin Lower body dressin Putting on/taking off footwear: 3 OT Site Administrator Goals Site Administrator Goals Time Frame: Jul 18, 2020 Eating (QC): 6 Oral Hygiene (QC): 5 Toileting Hygiene (QC): 5 Shower/Bathe Self (QC): 4 Upper Body Dressing (QC): 5 Lower Body Dressing (QC): 4 On/Off Footwear (QC): 4 Additional Goals: 1-Demonstrate ADL Tasks, 2-Verbalize Understanding, 3- ImproveStrength/Maia 1=Demonstrate adherence to instructed precautions during ADL tasks. 2=Patient will verbalize/demonstrate understanding of assistive devices/modifications for ADL. 3=Patient will improve strength/tolerance for activity to enable patient to perform ADL's. OT Education/Plan Problem List/Assessment Assessment: Decreased Activ Tolerance, Decreased UE Strength, Impaired Self- Care Skills, Restricted Funct UE ROM Discharge Recommendations Plan/Recommendations: Continue POC Treatment Plan/Plan of Care Patient would benefit from OT for education, treatment and training to promote independence in ADL's, mobility, safety and/or upper extremity function for ADL's. Plan of Care: ADL Retraining, Functional Mobility, UE Funct Exercise/Act Treatment Duration: Jul 18, 2020 Frequency: 5 times per week Estimated Hrs Per Day: .25 hour per day Agreement: Yes Rehab Potential: Fair Time/GCodes Start Time: 13:45 Stop Time: 13:57 Total Time Billed (hr/min): 12 Billed Treatment Time 1 visit-EX 1 (12 min) BRITTANY VAZ Jul 08, 2020 14:10
[2020-07-08] MEDS ORDERED: KETOROLAC 30 MG/ML VIAL ONE (14:35)
[2020-07-08] MEDS ORDERED: KETOROLAC 30 MG/ML VIAL IVP PRN (14:45)
--- NOTE | 2020-07-08 15:17 | NUR ---
CALLED THE PATIENT'S SON JAZZ PUENTE WITH UPDATES. NO NEWS ON [facility]. HE STATED THAT IF HIS GRANDMOTHER COULD TAKE HERSELF TO THE BATHROOM HE WOULD BE WILLING TO TAKE HER HOME. THE PATIENT DOES NOT FEEL LIKE SHE IS STRONG ENOUGH TO GO HOME WITH MORE THERAPY,
[2020-07-08 15:50] VITALS: BP 120/62
[2020-07-08] MEDS: ADVAIR HFA 115/21 MCG INHALER 8 GM IH SCH (18:43)
[2020-07-08 20:35] VITALS: BP 101/58
[2020-07-08] MEDS: traZODone 150 MG (DESYREL) TABLET PO SCH (20:58)
[2020-07-08] MEDS: CLOPIDOGREL 75 MG (PLAVIX) TABLET PO SCH (20:59)
[2020-07-08] MEDS: OMEGA 3 (FISH OIL) 1000 MG CAP PO SCH (20:59)
[2020-07-08] MEDS: meTOproloL SUCCINATE 50 MG (TOPROL XL) TAB PO SCH (20:59)
[2020-07-08] MEDS: ASPIRIN E.C. 81 MG (ECOTRIN) TAB PO SCH (20:59)
[2020-07-08] MEDS: PRAMIPEXOLE 0.125 MG (MIRAPEX) TABLET PO SCH (21:00)
[2020-07-08] MEDS: PANTOPRAZOLE 40 MG (PROTONIX) TAB PO SCH (21:01)
[2020-07-08] MEDS: KETOROLAC 30 MG/ML VIAL IVP PRN (21:01)
[2020-07-09] VITALS: BP 125/58
[2020-07-09 03:25] VITALS: BP 126/72
[2020-07-09] MEDS: HYDROcodone/APAP 10 MG/325 MG (LORTAB) TAB PO PRN ×3 (05:48→18:11)
[2020-07-09 07:18] LABS: BASOPHILS % (AUTO) 1 % (0-10); EOSINOPHILS # (AUTO) 0.4 10^3/uL (0.0-0.3); EOSINOPHILS % (AUTO) 6 % (0-10); HEMATOCRIT 27 % (35-52); HEMOGLOBIN 8.3 g/dL (11.5-16.0); LYMPHOCYTES # (AUTO) 0.7 10^3/uL (1.0-4.0); LYMPHOCYTES % (AUTO) 10 % (12-44); MEAN CORPUSCULAR HEMOGLOBIN 29 pg (25-34); MEAN CORPUSCULAR HGB CONC 31 g/dL (32-36); MEAN CORPUSCULAR VOLUME 94 fL (80-99); MEAN PLATELET VOLUME 10.8 fL (9.0-12.2); MONOCYTES # (AUTO) 1.2 10^3/uL (0.0-1.0); MONOCYTES % (AUTO) 16 % (0-12); NEUTROPHILS # (AUTO) 5.1 10^3/uL (1.8-7.8); NEUTROPHILS % (AUTO) 68 % (42-75); PLATELET COUNT 216 10^3/uL (130-400); WHITE BLOOD COUNT 7.5 10^3/uL (4.3-11.0)
[2020-07-09 07:32] LABS: ALBUMIN 2.9 GM/DL (3.2-4.5); POTASSIUM 4.2 MMOL/L (3.6-5.0)
[2020-07-09 07:33] LABS: CALCIUM 8.6 MG/DL (8.5-10.1)
[2020-07-09 07:35] LABS: TOTAL PROTEIN 5.2 GM/DL (6.4-8.2)
[2020-07-09 07:37] LABS: BILIRUBIN,TOTAL 0.3 MG/DL (0.1-1.0)
[2020-07-09 07:38] LABS: CREATININE SERUM 0.98 MG/DL (0.60-1.30)
[2020-07-09 08:00] VITALS: BP 106/53
--- NOTE | 2020-07-09 08:11 | Physical Therapy Daily Note ---
PT Daily Note-Current Subjective States that she is doing well today but doesn't think that she is ready to go home yet. Transfers SCALE: Activities may be completed with or without assistive devices. 9-Nseylryqel-kbqcuut completes the activity by him/herself with no assistance from a helper. 5-Set-up or Clean-up Assistance-helper sets up or cleans up; patient completes activity. [place] assists only prior to or following the activity. 4-Supervision or Touching Assistance-helper provides verbal cues and/or touching/steadying and/or contact guard assistance as patient completes activity. Assistance may be provided throughout the activity or intermittently. 3-Partial/Moderate Assistance-helper does LESS THAN HALF the effort. [place] lifts, holds or supports trunk or limbs, but provides less than half the effort. 2-Substantial/Maximal Assistance-helper does MORE THAN HALF the effort. [place] lifts or holds trunk or limbs and provides more than half the effort. 4-Kdbekypgl-asdzvx does ALL the effort. Patient does none of the effort to complete the activity. Or, the assistance of 2 or more helpers is required for the patient to complete the activity. If activity was not attempted, code reason: 7-Patient Refused. 9-Not Applicable-not attempted and the patient did not perform the activity before the current illness, exacerbation or injury. 10-Not Attempted due to Environmental Limitations-(lack of equipment, weather restraints, etc.). 88-Not Attempted due to Medical Conditions or Safety Concerns. Lying to Sitting/Side of Bed(Q: 5 Sit to Stand (QC): 5 Chair/Sww-gk-Jwusl Xfer(QC): 5 Gait Training Does the Patient Walk?: Yes Distance: 60' x 1, 100' x 1 Gait Persons Needed: 1 Gait Assistive Device: FWW Assessment Current Status: Excellent Progress Patient is doing well. PT Experimental Physicist Goals Prison Goals PT Prison Goals Time Frame: Jul 16, 2020 Roll Left & Right (QC): 5 Sit to Lying (QC): 5 Lying-Sitting on Side/Bed(QC): 5 Sit to Stand (QC): 5 Chair/Hem-lo-Lyild Xfer(QC): 5 Toilet Transfer (QC): 5 Does the Patient Walk: Yes Walk 10 feet (QC): 5 Walk 50ft with 2 Turns (QC): 5 Walk 150 ft (QC): 5 PT Plan Treatment/Plan Treatment Plan: Continue Plan of Care Treatment Plan: Bed Mobility, Education, Functional Activity Maia, Functional Strength, Gait, Safety, Therapeutic Exercise, Transfers Treatment Duration: Jul 16, 2020 Frequency: 6 times per week Estimated Hrs Per Day: .25 hour per day Patient and/or Family Agrees t: Yes Time/GCodes Time In: 740 Time Out: 755 Total Billed Treatment Time: 15 Total Billed Treatment 1, GT x 15' KELLIE YOUSSEF PT Jul 09, 2020 08:11
[2020-07-09] MEDS: LACTULOSE SYRUP 10GM/15ML (ENULOSE) 30ML UDC PO SCH ×2 (08:29→20:12)
[2020-07-09] MEDS: SENNA W/DOCUSATE (SENOKOT S) TABLET PO SCH ×2 (08:29→20:12)
[2020-07-09] MEDS: NICOTINE 21 MG (NICODERM) PATCH TD SCH (08:30)
[2020-07-09] MEDS: NICOTINE PATCH REMOVAL TP SCH (08:30)
[2020-07-09] MEDS: GABAPENTIN 600 MG (NEURONTIN) TAB PO SCH ×2 (08:30→20:12)
[2020-07-09] MEDS: KETOROLAC 30 MG/ML VIAL IVP PRN ×3 (08:33→21:18)
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
[2020-07-09 12:00] VITALS: BP 101/53
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
[2020-07-09] MEDS: BISACODYL 10 MG SUPP (DULCOLAX) PR SCH (13:33)
[2020-07-09] MEDS: UMECLIDINIUM BROMIDE (INCRUSE ELLIPTA) 7'S IH SCH (14:09)
[2020-07-09 15:34] VITALS: BP 108/61
[2020-07-09 19:33] VITALS: BP 136/65
[2020-07-09] MEDS: meTOproloL SUCCINATE 50 MG (TOPROL XL) TAB PO SCH (20:12)
[2020-07-09] MEDS: PANTOPRAZOLE 40 MG (PROTONIX) TAB PO SCH (20:12)
[2020-07-09] MEDS: CLOPIDOGREL 75 MG (PLAVIX) TABLET PO SCH (20:12)
[2020-07-09] MEDS: ASPIRIN E.C. 81 MG (ECOTRIN) TAB PO SCH (20:12)
[2020-07-09] MEDS: OMEGA 3 (FISH OIL) 1000 MG CAP PO SCH (20:12)
[2020-07-09] MEDS: traZODone 150 MG (DESYREL) TABLET PO SCH (20:12)
[2020-07-09] MEDS: PRAMIPEXOLE 0.125 MG (MIRAPEX) TABLET PO SCH (20:12)
[2020-07-09] MEDS: ADVAIR HFA 115/21 MCG INHALER 8 GM IH SCH (21:39)
[2020-07-10] VITALS: BP 101/51
[2020-07-10 04:15] VITALS: BP 115/56
[2020-07-10] MEDS: HYDROcodone/APAP 10 MG/325 MG (LORTAB) TAB PO PRN ×5 (04:30→21:33)
[2020-07-10 07:17] LABS: ALBUMIN 2.9 GM/DL (3.2-4.5)
[2020-07-10 07:18] LABS: POTASSIUM 5.3 MMOL/L (3.6-5.0)
[2020-07-10 07:19] LABS: CALCIUM 8.6 MG/DL (8.5-10.1)
[2020-07-10 07:20] LABS: TOTAL PROTEIN 5.4 GM/DL (6.4-8.2)
[2020-07-10 07:21] LABS: BILIRUBIN,TOTAL 0.3 MG/DL (0.1-1.0)
[2020-07-10 07:23] LABS: CREATININE SERUM 0.98 MG/DL (0.60-1.30)
[2020-07-10 07:51] LABS: BASOPHILS # (AUTO) 0.1 10^3/uL (0.0-0.1); BASOPHILS % (AUTO) 1 % (0-10); EOSINOPHILS # (AUTO) 0.4 10^3/uL (0.0-0.3); EOSINOPHILS % (AUTO) 5 % (0-10); HEMATOCRIT 27 % (35-52); HEMOGLOBIN 8.4 g/dL (11.5-16.0); LYMPHOCYTES # (AUTO) 0.8 10^3/uL (1.0-4.0); LYMPHOCYTES % (AUTO) 10 % (12-44); MEAN CORPUSCULAR HEMOGLOBIN 29 pg (25-34); MEAN CORPUSCULAR HGB CONC 31 g/dL (32-36); MEAN CORPUSCULAR VOLUME 94 fL (80-99); MEAN PLATELET VOLUME 10.7 fL (9.0-12.2); MONOCYTES % (AUTO) 12 % (0-12); NEUTROPHILS # (AUTO) 5.8 10^3/uL (1.8-7.8); NEUTROPHILS % (AUTO) 72 % (42-75); PLATELET COUNT 224 10^3/uL (130-400); WHITE BLOOD COUNT 8.1 10^3/uL (4.3-11.0)
[2020-07-10 08:00] VITALS: BP 131/63
[2020-07-10] MEDS: DOCUSATE SODIUM 100 MG (COLACE) CAP PO SCH (08:40)
[2020-07-10] MEDS: KETOROLAC 30 MG/ML VIAL IVP PRN ×3 (08:40→21:30)
[2020-07-10] MEDS: SENNA W/DOCUSATE (SENOKOT S) TABLET PO SCH ×2 (08:40→20:25)
[2020-07-10] MEDS: GABAPENTIN 600 MG (NEURONTIN) TAB PO SCH ×2 (08:40→20:26)
[2020-07-10] MEDS: NICOTINE 21 MG (NICODERM) PATCH TD SCH (08:41)
[2020-07-10] MEDS: BISACODYL 10 MG SUPP (DULCOLAX) PR SCH (08:41)
[2020-07-10] MEDS: NICOTINE PATCH REMOVAL TP SCH (08:41)
[2020-07-10] MEDS: LACTULOSE SYRUP 10GM/15ML (ENULOSE) 30ML UDC PO SCH ×2 (08:41→20:26)
[2020-07-10] MEDS: UMECLIDINIUM BROMIDE (INCRUSE ELLIPTA) 7'S IH SCH (09:26)
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
[2020-07-10 12:00] VITALS: BP 117/58
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
--- NOTE | 2020-07-10 13:43 | NUR ---
PATIENT IS STILL COMPLAINING OF PAIN. POSITION CHANGES, MASSAGING LEGS, UP IN THE CHAIR WITH A SANDRA LIFT, TYLENOL THIS AM AND LORTAB. SHE IS STILL COMPLAINING AND WANTS TO GO GET BACK IN BED NOW. PATIENT WILL NOT ATTEMPT TO MOVE HER ARMS OR LEGS HERSELF. THIS RN HAS WITNESSED HER LIFT HER LEGS ROTATE HER ANKLES AROUND--HOWEVER WHEN SHE IS ASKED TO DO IT, SHE STATES THAT SHE IS TRYING BUT SHE CAN'T. Addendum: 07/10/20 at 1344 by KEVIN DUVALL RN DISREGARD NOTE--IT IS NOT INTENDED FOR THIS PATIENT
[2020-07-10 15:52] VITALS: BP 110/53
[2020-07-10] MEDS: ADVAIR HFA 115/21 MCG INHALER 8 GM IH SCH (19:05)
[2020-07-10] MEDS: OMEGA 3 (FISH OIL) 1000 MG CAP PO SCH (20:25)
[2020-07-10] MEDS: traZODone 150 MG (DESYREL) TABLET PO SCH (20:25)
[2020-07-10] MEDS: CLOPIDOGREL 75 MG (PLAVIX) TABLET PO SCH (20:25)
[2020-07-10] MEDS: ASPIRIN E.C. 81 MG (ECOTRIN) TAB PO SCH (20:25)
[2020-07-10] MEDS: PANTOPRAZOLE 40 MG (PROTONIX) TAB PO SCH (20:26)
[2020-07-10] MEDS: PRAMIPEXOLE 0.125 MG (MIRAPEX) TABLET PO SCH (20:26)
[2020-07-10 20:29] VITALS: BP 103/51
[2020-07-11] MEDS: meTOproloL SUCCINATE 50 MG (TOPROL XL) TAB PO SCH (00:17)
[2020-07-11 00:55] VITALS: BP 113/56
[2020-07-11 04:00] VITALS: BP 125/63
[2020-07-11] MEDS: HYDROcodone/APAP 10 MG/325 MG (LORTAB) TAB PO PRN ×2 (05:44→12:43)
[2020-07-11 05:54] LABS: BASOPHILS # (AUTO) 0.1 10^3/uL (0.0-0.1); BASOPHILS % (AUTO) 1 % (0-10); EOSINOPHILS # (AUTO) 0.5 10^3/uL (0.0-0.3); EOSINOPHILS % (AUTO) 6 % (0-10); HEMATOCRIT 26 % (35-52); LYMPHOCYTES % (AUTO) 13 % (12-44); MEAN CORPUSCULAR HEMOGLOBIN 29 pg (25-34); MEAN CORPUSCULAR HGB CONC 31 g/dL (32-36); MEAN CORPUSCULAR VOLUME 94 fL (80-99); MEAN PLATELET VOLUME 10.8 fL (9.0-12.2); MONOCYTES # (AUTO) 1.1 10^3/uL (0.0-1.0); MONOCYTES % (AUTO) 14 % (0-12); NEUTROPHILS # (AUTO) 5.2 10^3/uL (1.8-7.8); NEUTROPHILS % (AUTO) 66 % (42-75); PLATELET COUNT 264 10^3/uL (130-400); WHITE BLOOD COUNT 7.8 10^3/uL (4.3-11.0)
[2020-07-11 06:02] LABS: ALBUMIN 2.9 GM/DL (3.2-4.5); POTASSIUM 5.1 MMOL/L (3.6-5.0)
[2020-07-11 06:04] LABS: CALCIUM 8.8 MG/DL (8.5-10.1)
[2020-07-11 06:05] LABS: TOTAL PROTEIN 5.4 GM/DL (6.4-8.2)
[2020-07-11 06:07] LABS: BILIRUBIN,TOTAL 0.2 MG/DL (0.1-1.0)
[2020-07-11 06:08] LABS: CREATININE SERUM 1.05 MG/DL (0.60-1.30)
[2020-07-11 07:30] VITALS: BP 130/59
[2020-07-11] MEDS: UMECLIDINIUM BROMIDE (INCRUSE ELLIPTA) 7'S IH SCH (07:36)
[2020-07-11] MEDS: BISACODYL 10 MG SUPP (DULCOLAX) PR SCH (08:09)
[2020-07-11] MEDS: NICOTINE 21 MG (NICODERM) PATCH TD SCH (08:09)
[2020-07-11] MEDS: SENNA W/DOCUSATE (SENOKOT S) TABLET PO SCH (08:09)
[2020-07-11] MEDS: NICOTINE PATCH REMOVAL TP SCH (08:09)
[2020-07-11] MEDS: GABAPENTIN 600 MG (NEURONTIN) TAB PO SCH (08:09)
[2020-07-11] MEDS: LACTULOSE SYRUP 10GM/15ML (ENULOSE) 30ML UDC PO SCH (08:09)
[2020-07-11] MEDS ORDERED: NICO1PAT34 TD (10:25)
[2020-07-11] MEDS ORDERED: TRIA5PAS3 DT (10:25)
[2020-07-11] MEDS ORDERED: KETO30VI IVP (10:25)
[2020-07-11] MEDS ORDERED: ACHYD1T PO (10:25)
[2020-07-11] MEDS ORDERED: SENN-20 PO (10:25)
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
--- NOTE | 2020-07-11 11:06 | Physical Therapy Daily Note ---
PT Daily Note-Current Subjective Patient agrees to PT. C/o 10/10 left knee pain with RN notified. Pain Numeric Pain Scale: 10-Worst Possible Pain Location: Left Location Body Site: Knee Pain Description: Sharp Mental Status Patient Orientation: Normal For Age Transfers SCALE: Activities may be completed with or without assistive devices. 6-Lzyfpptuov-isyujgz completes the activity by him/herself with no assistance from a helper. 5-Set-up or Clean-up Assistance-helper sets up or cleans up; patient completes activity. [place] assists only prior to or following the activity. 4-Supervision or Touching Assistance-helper provides verbal cues and/or touching/steadying and/or contact guard assistance as patient completes activity. Assistance may be provided throughout the activity or intermittently. 3-Partial/Moderate Assistance-helper does LESS THAN HALF the effort. [place] lifts, holds or supports trunk or limbs, but provides less than half the effort. 2-Substantial/Maximal Assistance-helper does MORE THAN HALF the effort. [place] lifts or holds trunk or limbs and provides more than half the effort. 2-Pqiuucxqb-ifdyto does ALL the effort. Patient does none of the effort to complete the activity. Or, the assistance of 2 or more helpers is required for the patient to complete the activity. If activity was not attempted, code reason: 7-Patient Refused. 9-Not Applicable-not attempted and the patient did not perform the activity before the current illness, exacerbation or injury. 10-Not Attempted due to Environmental Limitations-(lack of equipment, weather restraints, etc.). 88-Not Attempted due to Medical Conditions or Safety Concerns. Sit to Stand (QC): 3 Gait Training Does the Patient Walk?: Yes Distance: 110' Walk 10 feet (QC): 3 Walk 50 ft with 2 Turns(QC): 3 Walk 150 ft (QC): 88 Gait Assistive Device: FWW antalgic, step to gait sequence due to left knee pain Exercises Seated Therapy Exercises: Ankle pumps, Long arc quads, Hip flexion Seated Reps: 15 Assessment Patient required more assistance on this date and increase left knee pain. RN notified. From a PT standpoint, patient will require continued therapy to ensure safe return to home alone with home health. Left hand/wrist in hard cast. PT Supply Chain Planner Goals Skilled Nursing Goals PT Skilled Nursing Goals Time Frame: Jul 16, 2020 Roll Left & Right (QC): 5 Sit to Lying (QC): 5 Lying-Sitting on Side/Bed(QC): 5 Sit to Stand (QC): 5 Chair/Tuk-yg-Zxaab Xfer(QC): 5 Toilet Transfer (QC): 5 Does the Patient Walk: Yes Walk 10 feet (QC): 5 Walk 50ft with 2 Turns (QC): 5 Walk 150 ft (QC): 5 PT Plan Treatment/Plan Treatment Plan: Continue Plan of Care Treatment Plan: Bed Mobility, Education, Functional Activity Maia, Functional Strength, Gait, Safety, Therapeutic Exercise, Transfers Treatment Duration: Jul 16, 2020 Frequency: 6 times per week Estimated Hrs Per Day: .25 hour per day Patient and/or Family Agrees t: Yes Time/GCodes Time In: 1051 Time Out: 1103 Total Billed Treatment Time: 12 Total Billed Treatment 1 visit FA 12 min CHARITY HO PT Jul 11, 2020 11:06
[2020-07-11 12:00] VITALS: BP 163/62
--- NOTE | 2020-07-11 13:28 | NUR ---
ZAHRA/SS finalized discharge. Plan: The patient will discharge to [facility] today 07/11/20 to continue skilled therapies. [place] [facility]: ZAHRA/JOHN spoke with Jennifer the SWB Coordinator. She reports the patient has been accepted through insurance for four days. ZAHRA/SS faxed updated clinical and finalized discharge. ZAHRA/SS informed the patient. She is agreeable with the plan. DPOA: ZAHRA/JOHN contacted Rajat to discuss discharge plans. He is willing to pick the patient up and provide transportation to [facility]. He will worm picker around 2:30. ZAHRA/SS informed the Nurse and Physician of plan. No further needs at this time.
--- NOTE | 2020-07-11 14:02 | Occupational Ther Daily Note ---
OT Current Status-Daily Note Subjective Pt alert, sitting in recliner. Pt agrees to therapy. Pt stated that she will be discharging at 2:30 today to go to [facility]. Mental Status/Objective Patient Orientation: Person, Place, Time, Situation ADL-Treatment Pt stated that her pain was better. Pt requested to dress for the move. Pt able to doff socks, assist to don. Assist to thread pants over feet and hike over L hip, pt able to hike over right hip. Pt stood without LOB and AD. Assist to don shirt due to size of shirt and hard cast on L UE. Pt requested to have L shirt arm cut to allow cast to go through sleeve. After therapy, pt sitting in recliner with call light/phone in reach. All needs met in room. Therapy Code Descriptions/Definitions Functional [place] Measure: 0=Not Assessed/NA 4=Minimal Assistance 1=Total Assistance 5=Supervision or Setup 2=Maximal Assistance 6=Modified [place] 3=Moderate Assistance 7=Complete IndependenceSCALE: Activities may be completed with or without assistive devices. 4-Unavrsopgy-hxbqyqd completes the activity by him/herself with no assistance from a helper. 5-Set-up or Clean-up Assistance-helper sets up or cleans up; patient completes activity. [place] assists only prior to or following the activity. 4-Supervision or Touching Assistance-helper provides verbal cues and/or touching/steadying and/or contact guard assistance as patient completes activity. Assistance may be provided throughout the activity or intermittently. 3-Partial/Moderate Assistance-helper does LESS THAN HALF the effort. [place] lifts, holds or supports trunk or limbs, but provides less than half the effort. 2-Substantial/Maximal Assistance-helper does MORE THAN HALF the effort. [place] lifts or holds trunk or limbs and provides more than half the effort. 3-Ztpkfbjtc-oobzxu does ALL the effort. Patient does none of the effort to complete the activity. Or, the assistance of 2 or more helpers is required for the patient to complete the activity. If activity was not attempted, code reason: 7-Patient Refused. 9-Not Applicable-not attempted and the patient did not perform the activity before the current illness, exacerbation or injury. 10-Not Attempted due to Environmental Limitations-(lack of equipment, weather restraints, etc.). 88-Not Attempted due to Medical Conditions or Safety Concerns. OT Short Term Goals Short Term Goals Time Frame: Jul 11, 2020 Eatin Oral hygiene: 4 Toileting hygiene: 3 Shower/bathe self: 3 Upper body dressin Lower body dressin Putting on/taking off footwear: 3 OT Custodial Goals Custodial Goals Time Frame: Jul 18, 2020 Eating (QC): 6 Oral Hygiene (QC): 5 Toileting Hygiene (QC): 5 Shower/Bathe Self (QC): 4 Upper Body Dressing (QC): 5 Lower Body Dressing (QC): 4 On/Off Footwear (QC): 4 Additional Goals: 1-Demonstrate ADL Tasks, 2-Verbalize Understanding, 3- ImproveStrength/Maia 1=Demonstrate adherence to instructed precautions during ADL tasks. 2=Patient will verbalize/demonstrate understanding of assistive devices/modifications for ADL. 3=Patient will improve strength/tolerance for activity to enable patient to perform ADL's. OT Education/Plan Problem List/Assessment Assessment: Decreased Activ Tolerance, Impaired Self-Care Skills, Restricted Funct UE ROM Discharge Recommendations Plan/Recommendations: Continue POC Treatment Plan/Plan of Care Patient would benefit from OT for education, treatment and training to promote independence in ADL's, mobility, safety and/or upper extremity function for ADL's. Plan of Care: ADL Retraining, Functional Mobility, UE Funct Exercise/Act Treatment Duration: Jul 18, 2020 Frequency: 5 times per week Estimated Hrs Per Day: .25 hour per day Agreement: Yes Rehab Potential: Fair Time/GCodes Start Time: 13:30 Stop Time: 13:46 Total Time Billed (hr/min): 16 Billed Treatment Time 1 visit-ADL 1 (16 min) BRITTANY VAZ Jul 11, 2020 14:01
== END 2020-07-11 15:00 | DRG 200 ==
LOC: ER 20:14 → EDUNIT# 20:14 → CSD 21:51 → 4TH 07-05 14:02
PROVIDERS: ADMIT Surgery; ATTEND Surgery
DX: S27.0XXA Traumatic pneumothorax, initial encounter (principal); S22.32XA Fracture of one rib, left side, initial encounter for closed fracture; S27.321A Contusion of lung, unilateral, initial encounter; S62.361A Nondisplaced fracture of neck of second metacarpal bone, left hand, initial encounter for closed fracture; S62.92XA Unspecified fracture of left hand, initial encounter for closed fracture; S02.2XXA Fracture of nasal bones, initial encounter for closed fracture; V89.0XXA Person injured in unspecified motor-vehicle accident, nontraffic, initial encounter; J44.9 Chronic obstructive pulmonary disease, unspecified; Z20.822 Contact with and (suspected) exposure to COVID-19; K21.9 Gastro-esophageal reflux disease without esophagitis; M19.90 Unspecified osteoarthritis, unspecified site; G89.29 Other chronic pain; M54.9 Dorsalgia, unspecified; M81.0 Age-related osteoporosis without current pathological fracture; F17.210 Nicotine dependence, cigarettes, uncomplicated; Z96.642 Presence of left artificial hip joint; Z96.611 Presence of right artificial shoulder joint; Z90.49 Acquired absence of other specified parts of digestive tract; Z85.3 Personal history of malignant neoplasm of breast; Z90.13 Acquired absence of bilateral breasts and nipples; Z88.5 Allergy status to narcotic agent; Z79.82 Long term (current) use of aspirin
CPT/HCPCS: 36415; 70450; 71045; 71046; 71260; 72125; 72170; 73020; 73130; 74177; 80048; 80053; 80076; 80320; 84703; 85007; 85025; 85027; 86850; 86900; 86901; 87635; 90715; 93005; 93041; 94640; 94664; 94760; 99291; 99292

== ENCOUNTER → 2021-05-30 | Outpatient (CLI) | payer MEDICARE ==
[~2021-05-30] MED LIST changes: +ACHYD1T PO; +ATOR40TA70 PO; +DOCU-26 PO; +FERR325T18 PO; +KETO30VI IVP; +LISI40TA9 PO; +NICO1PAT34 TD; +SENN-20 PO; +TIOT18CA2 INH; +TRIA5PAS3 DT
--- NOTE | 2021-05-30 14:49 | Diagnostic Imaging Report ---
INDICATION: Right lung mass. Serum blood glucose level at time of injection is 97 mg/dL. The patient was administered 13.7 mCi F-18 FDG intravenously in the right antecubital location and whole-body PET imaging was performed. In addition, noncontrast CT was performed for attenuation correction and anatomic correlation. No prior PET/CT studies available for comparison. There is symmetric activity throughout the brain. Soft tissues of the neck are unremarkable. There is a lobulated hypermetabolic mass in the right lower lobe measuring 2.8 cm in diameter. SUV max approximately 9.9. No other pulmonary parenchymal regions of hypermetabolism are identified. No definite mediastinal or hilar hypermetabolism is identified. Abdomen and pelvis demonstrate physiologic activity throughout the GI and tracts. The lower extremities are unremarkable. IMPRESSION: Hypermetabolic right lower lobe lung mass, suggestive of primary lung neoplasm. No definite mediastinal or hilar hypermetabolism is seen. No findings to suggest metastatic disease. Dictated by: Dictated on workstation # [id number]
== END ==
LOC: RAD 09:45
PROVIDERS: ATTEND Pediatrics
DX: R91.8 Other nonspecific abnormal finding of lung field (principal)
CPT/HCPCS: 78816; A9552

== ENCOUNTER 2021-06-19 12:36 | Outpatient (RCR) | payer MEDICARE ==
[2021-06-19 14:05] LABS: BASOPHILS # (AUTO) 0.1 10^3/uL (0.0-0.1); BASOPHILS % (AUTO) 1 % (0-10); EOSINOPHILS # (AUTO) 0.1 10^3/uL (0.0-0.3); EOSINOPHILS % (AUTO) 2 % (0-10); HEMATOCRIT 37 % (35-52); HEMOGLOBIN 11.5 g/dL (11.5-16.0); LYMPHOCYTES % (AUTO) 18 % (12-44); MEAN CORPUSCULAR HEMOGLOBIN 27 pg (25-34); MEAN CORPUSCULAR HGB CONC 31 g/dL (32-36); MEAN CORPUSCULAR VOLUME 88 fL (80-99); MEAN PLATELET VOLUME 10.3 fL (9.0-12.2); MONOCYTES # (AUTO) 0.5 10^3/uL (0.0-1.0); MONOCYTES % (AUTO) 10 % (0-12); NEUTROPHILS # (AUTO) 3.9 10^3/uL (1.8-7.8); NEUTROPHILS % (AUTO) 69 % (42-75); PLATELET COUNT 282 10^3/uL (130-400); WHITE BLOOD COUNT 5.7 10^3/uL (4.3-11.0)
[2021-06-19 14:34] LABS: ALBUMIN 4.2 GM/DL (3.2-4.5); BILIRUBIN,TOTAL 0.3 MG/DL (0.1-1.0); CALCIUM 9.7 MG/DL (8.5-10.1); CREATININE SERUM 0.82 MG/DL (0.60-1.30); POTASSIUM 3.4 MMOL/L (3.6-5.0); TOTAL PROTEIN 7.4 GM/DL (6.4-8.2)
== END 2021-07-10 | disposition home or self-care (01) ==
LOC: ONC 12:36
PROVIDERS: ATTEND Internal Medicine Hematology & Oncology
DX: C34.31 Malignant neoplasm of lower lobe, right bronchus or lung (principal)
CPT/HCPCS: 80053; 82378; 85025; 99214

== ENCOUNTER → 2021-06-27 | Outpatient (CLI) | payer MEDICARE ==
[~2021-06-27] MED LIST changes: +GADOTERATE 0.5 MMOL/ML (CLARISCAN) 15 ML VIAL IV ONE
--- NOTE | 2021-06-27 12:46 | Diagnostic Imaging Report ---
CLINICAL INDICATION: Patient has been having headaches. EXAM: MRI of the brain performed without and with 8 cc of Clariscan IV contrast. Sequences include axial DWI, ADC map, axial gradient echo, axial FLAIR, axial T1, axial T2, axial T1 post IV contrast whole brain, coronal T1 fat-sat post IV contrast whole brain, and sagittal T1 fat-sat post IV contrast whole brain. COMPARISON: Head CT without contrast dated 07/02/2020. FINDINGS: There is no evidence of acute cerebral infarct, intracranial hemorrhage, or gross mass effect. There is no abnormal IV contrast enhancement. There is diffuse brain parenchymal volume loss. There is diffuse focal, patchy, and confluent areas of high T2 signal white matter changes involving both cerebral hemispheres and right cerebellum related to chronic small vessel ischemic disease and leukoaraiosis. There is normal biggs-white matter distinction. There is no significant midline shift or herniation. The [place] vascular structures show no gross abnormality as visualized. The pituitary gland, sella, and suprasellar regions are unremarkable as visualized. There is no evidence of hydrocephalus. The basal cisterns are unremarkable. The skull, extracranial soft tissue, and orbits are unremarkable. The paranasal sinuses are unremarkable. Temporal bones show no significant abnormality. IMPRESSION: 1: There is no evidence of an acute intracranial process. There is no abnormal IV contrast enhancement. 2: There is diffuse brain parenchymal volume loss, chronic small vessel ischemic disease, and leukoaraiosis. Dictated by: Dictated on workstation # [id number]
== END ==
LOC: RAD 10:15
PROVIDERS: ATTEND Internal Medicine Hematology & Oncology
DX: I67.81 Acute cerebrovascular insufficiency (principal); I67.82 Cerebral ischemia; G31.9 Degenerative disease of nervous system, unspecified
CPT/HCPCS: 70553

== ENCOUNTER 2021-07-17 05:52 | Outpatient (CLI) | payer MEDICARE ==
[~2021-07-17] VITALS: Ht 152.4 cm; Wt 45.5 kg
[~2021-07-17 05:52] MED LIST changes: -GADOTERATE 0.5 MMOL/ML (CLARISCAN) 15 ML VIAL IV ONE
[2021-07-17] MEDS ORDERED: LIDO-11 TP (12:09)
[2021-07-17] MEDS ORDERED: SERT-412 PO (12:09)
[2021-07-17] MEDS ORDERED: AMLO-250 PO (12:09)
== END 2021-07-17 12:26 ==
LOC: PREOP 05:52
PROVIDERS: ATTEND Orthopaedic Surgery
DX: Z01.818 Encounter for other preprocedural examination (principal)

== ENCOUNTER 2021-07-19 05:52 | Day surgery (SDC) | payer MEDICARE ==
--- NOTE | 2021-07-18 17:04 | HISTORY AND PHYSICAL ---
DATE OF SERVICE: This will be for outpatient surgery on 07/19/2021 for left carpal tunnel release and left cubital tunnel release. HISTORY OF PRESENT ILLNESS: The patient is a 80-year-old right hand dominant female with complaints of left hand pain and paresthesias. She reports pain and paresthesias constantly in her left hand, which involved all of her fingers. She reports some elbow pain as well as wrist pain. She has tried rest and splinting and activity modifications without relief. Due to functional impairment and failure to improve with conservative measures, the patient elected to proceed with surgical intervention. REVIEW OF SYSTEMS: No chest pain, no shortness of breath, no dysuria. PAST MEDICAL HISTORY: Allergic rhinitis, iron deficiency, COPD, reflux, hypertension, osteoarthritis, osteoporosis, peripheral vascular disease, restless leg syndrome, renal stones, unstable angina, hyperlipidemia, lung nodule, lung cancer. PAST SURGICAL HISTORY: Appendectomy, cervical spine, cholecystectomy, hysterectomy, lumbar spine, mastectomy, renal stone extraction, shoulder arthroscopy, total hip replacement and coronary stent placement. FAMILY HISTORY: Significant for ischemic heart disease and cancer. PRIMARY CARE PROVIDER: [facility]. MEDICATIONS: Gabapentin, Protonix, aspirin, pramipexole, cetirizine, metoprolol, trazodone, albuterol, Plavix, iron, Symbicort. ALLERGIES: MORPHINE. SOCIAL HISTORY: The patient does use tobacco products. Denies alcohol use. RADIOGRAPHS: Reveal significant degenerative changes in the radiocarpal joints. PHYSICAL EXAMINATION: GENERAL: The patient is well-developed, well-nourished, in no acute distress. HEENT: Normocephalic, atraumatic. Pupils are equal, round, reactive to light. Oropharynx is clear. NECK: Supple, no lymphadenopathy. LUNGS: Clear to auscultation bilaterally. HEART: Regular rate and rhythm. ABDOMEN: Soft, nontender, nondistended. EXTREMITIES: Left elbow demonstrates positive Tinel's of cubital tunnel, positive elbow flexion test, positive Tinel's at the carpal tunnel with positive Phalen's maneuver, decreased sensation in the median and ulnar distribution, weakness with finger abduction and thumb palmar abduction. She does have thenar atrophy noted on the left as well. IMPRESSION: Left carpal and cubital tunnel syndromes. PLAN: Left carpal and cubital tunnel releases. The risks, benefits, options, ramifications and recovery have been discussed at length with the patient. She understands and wishes to proceed. Job ID: [id number] DocumentID: [id number] Dictated Date: 07/17/2021 09:00:35 Ski Technician Date: 07/17/2021 09:14:38 Dictated By: JOSE ROBERTO SANTIAGO MD
[~2021-07-19] VITALS: Ht 152.4 cm; Wt 45.5 kg
[2021-07-19] VITALS (10 sets, daily range): BP systolic 93–118; BP diastolic 42–54
[~2021-07-19 05:52] MED LIST changes: +AMLO-250 PO; +LIDO-11 TP; +SERT-412 PO
[2021-07-19] MEDS ORDERED: ceFAZolin INJECTION 1,000 MG ONE (07:00)
[2021-07-19] MEDS ORDERED: LACTATED RINGERS 1,000 ML IV PRN (07:00)
[2021-07-19] MEDS ORDERED: ceFAZolin INJECTION 1,000 MG VIAL IV ONE (07:00)
[2021-07-19] MEDS ORDERED: BUPIVACAINE 0.5% 30 ML (SENSORCAINE) VIAL ONE (07:01)
[2021-07-19] MEDS ORDERED: fentaNYL INJ 100 MCG/2 ML AMP ONE (07:08)
[2021-07-19] MEDS ORDERED: ONDANSETRON 4 MG/2 ML (SDV) Z0FRAN ONE (07:08)
[2021-07-19] MEDS ORDERED: MIDAZOLAM 2 MG/2 ML (VERSED) VIAL ONE (07:08)
[2021-07-19] MEDS ORDERED: LIDOCAINE PF 2% 5 ML (XYLOCAINE) VIAL ONE (07:08)
[2021-07-19] MEDS ORDERED: proPOfol 200 MG/20 ML (DIPRIVAN) VIAL IV ONE (07:08)
[2021-07-19] MEDS ORDERED: oxyCODONE/APAP 5/325MG (PERCOCET 5) TABLET PO PRN (07:30)
--- NOTE | 2021-07-19 07:35 | Progress Note-Pre Operative ---
Pre-Operative Progress Note H&P Reviewed The H&P was reviewed, patient examined and no changes noted. Date Seen by Provider: Jul 19, 2021 Time Seen by Provider: 07:25 Date H&P Reviewed: Jul 19, 2021 Time H&P Reviewed: 07:11 Pre-Operative Diagnosis: left cubital and carpal tunnel syndrome JOSE ROBERTO SANTIAGO MD Jul 19, 2021 07:35
--- NOTE | 2021-07-19 07:36 | Progress Note-Post Operative ---
Post-Operative Progess Note Surgeon (s)/Sample Grader (s) Surgeon JOSE ROBERTO SANTIAGO MD Sample Grader: Dipak Nugent Pre-Operative Diagnosis left cubital and carpal tunnel syndrome Post-Operative Diagnosis left cubital and carpal tunnel syndrome Procedure & Operative Findings Date of Procedure 07/19/21 Procedure Performed/Findings left cubital and carpal tunnel releases Anesthesia Type GETA Estimated Blood Loss Estimated blood loss (mL): minimal Specimens/Packing Specimens Removed none Packing: none JOSE ROBERTO SANTIAGO MD Jul 19, 2021 07:36
[2021-07-19] MEDS ORDERED: SEVOFLURANE (ULTANE) 15 ML INHAL SOLN ONE (08:16)
--- NOTE | 2021-07-19 08:20 | D/C HH Face to Face Order ---
D/C Face to Face Orders Reconcile Patient Problems Problems Reviewed?: Yes Instructions for Patient Via [facility] Secure-NOK, Patient Instructions/FollowUp: two weeks Physician to follow Patient: two weeks Discharge Diet for Home: Regular Diet Patient Problems: left carpal and cubital tunnel releases Goals for Patient: self care Patient Data-Allergies,Ht & Wt Patient Allergies: Coded Allergies: morphine (Verified Allergy, Mild, Rash, 07/19/21) Home Health Need/Face to Face Date of Face to Face: Jul 19, 2021 Clinical Findings: Generalized weakness and fatigue, Muscle weakness, Unsteady gait I have seen Pt kggu-qn-jxvz: Yes Discharged To: Home Diagnosis/Conditions: left carpal and cubital tunnel releases Patient is Homebound due to: CognItive deficits, Danyel fall risk due to instabilty, Muscle weakness Homebound Status Due to the above stated illness, injury or surgical procedure (medical condition or diagnosis) and associated clinical findings, the patient is homebound because of his/her inability to leave home except with aid of a supportive device and/or person AND leaving the home requires a considerable and taxing effort or is medically contraindicated. Pt req the following assistanc: Aid of another person Home Health Nursing Orders Home Health Services Order: Nursing Services, Wound Care-Eval/Treat assist with showering/bathing, self [facility] Therapy Line Start Date: Jul 19, 2021 Therapy Orders Therapy Specific Orders: Teach strategies/cognitive deficits, Teach enviro modifications/safety Certify Stmt I certify that this patient is under my care and that I, a nurse practitioner or a physician; a family services assistant working with me, had a face to face encounter that - meets the physician face to face encounter requirements with this patient as dated. JOSE ROBERTO SANTIAGO MD Jul 19, 2021 08:20
--- NOTE | 2021-07-19 12:57 | OPERATIVE REPORT ---
DATE OF SERVICE: 07/19/2021 PREOPERATIVE DIAGNOSES: 1. Left cubital tunnel syndrome. 2. Left carpal tunnel syndrome. POSTOPERATIVE DIAGNOSES: 1. Left cubital tunnel syndrome. 2. Left carpal tunnel syndrome. PROCEDURES: 1. Left cubital tunnel release. 2. Left carpal tunnel release. SURGEON: Momo Santiago MD DIVER ASSISTANT: Dipak Nugent, who assisted throughout the procedure and closed the incisions. ANESTHESIA: General endotracheal by Bri Coronel CRNA. TOURNIQUET TIME: 9 minutes at 250 mmHg. ESTIMATED BLOOD LOSS: Minimal. DRAINS: None. COMPLICATIONS: None. POSTOPERATIVE PLAN: Routine protocol. The patient was transferred to the recovery room awake and in stable condition. STATEMENT OF MEDICAL NECESSITY: The patient is a 80-year-old female with complaints of left hand pain and paresthesias. She had decreased sensation in median and ulnar distribution. She had a positive Tinel's with cubital and carpal tunnels. She had a positive elbow flexion test with positive Phalen's maneuver. She tried rest, activity modifications, anti-inflammatories without relief. Due to functional impairment and failure to improve with conservative measures, the patient elected to proceed with surgical intervention. DESCRIPTION OF PROCEDURE: After risks and benefits of procedure were discussed and questions were answered, informed consent was signed and placed on chart, the operative site was confirmed in the preoperative holding area and initialed by the surgeon. The patient was then transferred to the operating room after adequate levels of general endotracheal anesthetic were obtained, a timeout was called, confirming the operative site. Left lower extremity was prepped and draped in the usual sterile fashion with arm elevated, tourniquet inflated to 250 mmHg. A curved incision was made posterior to the medial epicondyle at the elbow and the underlying soft tissues were carefully dissected. The ulnar nerve was identified proximal to the medial epicondyle and dissected free 2.9 cm proximally. This was then dissected through the cubital tunnel and into the flexor pronator mass. The ulnar nerve was intact at the conclusion of the procedure. After carefully protected and the elbow was taken through range of motion with no subluxation noted; therefore, transposition was not performed. Attention was then turned to the carpal tunnel where an incision was made in line with radial border ring finger over the transverse carpal ligament, the underlying soft tissues were carefully dissected. Transverse carpal ligament was identified and incised by pushing through with the scalpel blade. The distal extent was confirmed fully released with a freer. Proximal transverse carpal ligament was spread above and below with dissection scissors and then opened with slightly open scissor edges. This was confirmed fully released with a freer. The tourniquet was deflated for a total tourniquet time of 9 minutes. Pressure was used for hemostasis. The wounds were copiously irrigated, 3-0 Vicryl was used to reapproximate subcutaneous tissue at the elbow incision. Both skin incisions were closed with 4-0 nylon in a running alternating horizontal mattress fashion. The incisions were infiltrated with plain Marcaine and soft dressing and a wrist splint were applied, and the patient was transferred to the recovery room awake and in stable condition. Job ID: [id number] DocumentID: [id number] Dictated Date: 07/19/2021 08:17:23 Wood Tile Installer Date: 07/19/2021 12:56:26 Dictated By: MOMO SANTIAGO MD
--- NOTE | 2021-07-19 13:40 | Anesthesia-General Post-Op ---
General Patient Condition Mental Status/LOC: Same as Preop Cardiovascular: Satisfactory Nausea/Vomiting: Absent Respiratory: Satisfactory Pain: Controlled Complications: Absent Post Op Complications Complications None Follow Up Care/Instructions Patient Instructions None needed. Anesthesia/Patient Condition Patient Condition Patient is doing well, no complaints, stable vital signs, no apparent adverse anesthesia problems. No complications reported per nursing. FABBY GILBERT CRNA Jul 19, 2021 13:40
[2021-07-20] MEDS ORDERED: CETI10TA17 PO (10:37)
[2021-07-20] MEDS ORDERED: CLOP75TA28 PO (10:37)
[2021-07-20] MEDS ORDERED: HYDR-3820 PO (10:37)
[2021-07-20] MEDS ORDERED: LISI40TA9 PO (10:37)
[2021-07-20] MEDS ORDERED: DULO30CA49 PO (10:37)
[2021-07-20] MEDS ORDERED: ALEN70TA80 PO (10:37)
== END 2021-07-19 10:55 | disposition home or self-care (01) ==
LOC: SDC 05:52
PROVIDERS: ATTEND Orthopaedic Surgery
DX: G56.02 Carpal tunnel syndrome, left upper limb (principal); G56.22 Lesion of ulnar nerve, left upper limb; C34.90 Malignant neoplasm of unspecified part of unspecified bronchus or lung; G89.4 Chronic pain syndrome; J44.9 Chronic obstructive pulmonary disease, unspecified; K21.9 Gastro-esophageal reflux disease without esophagitis; I10 Essential (primary) hypertension; M81.0 Age-related osteoporosis without current pathological fracture; E78.5 Hyperlipidemia, unspecified; E61.1 Iron deficiency; I73.9 Peripheral vascular disease, unspecified; Z79.02 Long term (current) use of antithrombotics/antiplatelets; J30.9 Allergic rhinitis, unspecified; F17.200 Nicotine dependence, unspecified, uncomplicated; Z98.1 Arthrodesis status; Z96.642 Presence of left artificial hip joint; Z87.81 Personal history of (healed) traumatic fracture; Z79.82 Long term (current) use of aspirin; Z79.891 Long term (current) use of opiate analgesic
CPT/HCPCS: 87081

== ENCOUNTER 2021-07-20 08:50 | Outpatient (CLI) | payer MEDICARE ==
[~2021-07-20] VITALS: Ht 154.9 cm; Wt 46.5 kg
[2021-07-20] VITALS (17 sets, daily range): BP systolic 106–164; BP diastolic 46–105
[2021-07-20 09:28] LABS: BASOPHILS % (AUTO) 0 % (0-10); EOSINOPHILS % (AUTO) 0 % (0-10); HEMATOCRIT 34 % (35-52); HEMOGLOBIN 10.4 g/dL (11.5-16.0); LYMPHOCYTES # (AUTO) 0.9 10^3/uL (1.0-4.0); LYMPHOCYTES % (AUTO) 12 % (12-44); MEAN CORPUSCULAR HEMOGLOBIN 28 pg (25-34); MEAN CORPUSCULAR HGB CONC 31 g/dL (32-36); MEAN CORPUSCULAR VOLUME 89 fL (80-99); MEAN PLATELET VOLUME 10.9 fL (9.0-12.2); MONOCYTES # (AUTO) 0.7 10^3/uL (0.0-1.0); MONOCYTES % (AUTO) 9 % (0-12); NEUTROPHILS # (AUTO) 6.1 10^3/uL (1.8-7.8); NEUTROPHILS % (AUTO) 78 % (42-75); PLATELET COUNT 262 10^3/uL (130-400); WHITE BLOOD COUNT 7.8 10^3/uL (4.3-11.0)
[2021-07-20 09:39] LABS: INR 0.9 (0.8-1.4); PROTHROMBIN TIME PATIENT 12.6 SEC (12.2-14.7)
[2021-07-20] MEDS ORDERED: MIDAZOLAM 2 MG/2 ML (VERSED) VIAL INJ ONE (09:45)
[2021-07-20] MEDS ORDERED: fentaNYL INJ 100 MCG/2 ML AMP INJ ONE (09:45)
[2021-07-20] MEDS ORDERED: NS IV 1000 ML 1,000 ML IV SCH (09:45)
[2021-07-20] MEDS ORDERED: LIDOCAINE 1% INJ 20 ML VIAL INJ ONE (09:45)
[2021-07-20] MEDS ORDERED: CETI10TA17 PO (10:37)
[2021-07-20] MEDS ORDERED: DULO30CA49 PO (10:37)
[2021-07-20] MEDS ORDERED: HYDR-3820 PO (10:37)
[2021-07-20] MEDS ORDERED: ALEN70TA80 PO (10:37)
[2021-07-20] MEDS ORDERED: CLOP75TA28 PO (10:37)
[2021-07-20] MEDS ORDERED: LISI40TA9 PO (10:37)
--- NOTE | 2021-07-20 11:10 | Pre-Op Note & Conscious Sedat ---
Pre-Operative Progress Note H&P Reviewed The H&P was reviewed, patient examined and no changes noted. Date H&P Reviewed: Jul 20, 2021 Time H&P Reviewed: 09:00 Pre-Op Diagnosis: pulmonary nodule Conscious Sedation Pre-Proced Time 09:00 ASA Score 2 For ASA 3 and 4: Consider anesthesia and medical clearance. Also, for patients with a history of failed moderate sedation consider anesthesia. Airway Lungs Heart ASA score ASA 1: a normal healthy patient ASA 2: a patient with a mild systemic disease (mid diabetes, controlled hypertension, obesity ASA 3: a patient with a severe systemic disease that limits activity (angina, COPD, prior Myocardial infarction) ASA 4: a patient with an incapacitating disease that is a constant threat to life (CHF, renal failure) ASA 5: a moribund patient not expected to survive 24 hrs. (ruptured aneurysm) ASA 6: a declared brain- patient whose organs are being harvested. For emergent operations, add the letter E after the classification Mallampati Classification Grade 2 Sedation Plan Analgesia, Amnesia, Plan communicated to team members, Discussed options with magaly renteria/fam, Discussed risks with patient/fam The patient is an appropriate candidate to undergo the planned procedure, sedation, and anesthesia. The patient immediately re-assessed prior to indication. JIMENEZ THOMAS MD Jul 20, 2021 11:10
--- NOTE | 2021-07-20 11:42 | Diagnostic Imaging Report ---
INDICATION: Right lower lobe mass. Patient presents for biopsy. TECHNIQUE: All CT scans use one or more of the following dose optimizing techniques: automated exposure control, MA and/or KvP adjustment based on patient size and exam type or iterative reconstruction. FINDINGS: Patient was brought to the CT suite, placed on table on the ioew-yfbd-ptjz decubitus position. Imaging through the chest was performed to evaluate appropriate entry site. Procedure was performed utilizing conscious sedation with radiology nursing and constant patient monitoring. Patient was given a total of 50 mg of fentanyl intravenously and 1 mg of Versed intravenously. Total procedure time was 15 minutes. 18-gauge coaxial Temno needle was advanced and placed with its tip within the soft tissue mass in the right lower lobe. Multiple core biopsies were obtained. BioSentry closure device was utilized during needle removal. Images do demonstrate some perilesional hemorrhage. There is a tiny right basilar pneumothorax. IMPRESSION: CT-guided right lower lobe lung mass biopsy utilizing conscious sedation. Pathology results are currently pending. Patient did have a small pneumothorax. This will be followed with chest radiograph in two hours. Dictated by: Dictated on workstation # [id number]
[2021-07-20] MEDS ORDERED: HYDROcodone/APAP 5 MG/325 MG (LORTAB) TAB PO PRN (12:00)
--- NOTE | 2021-07-20 13:32 | Diagnostic Imaging Report ---
INDICATION: Status post lung biopsy. COMPARISON: Earlier same day. FINDINGS: Single frontal radiographic view of the chest was obtained and demonstrates small right apical pneumothorax estimated at 10%. There is also new patchy airspace opacity within the right lower lung field, which could be on the basis of pulmonary hemorrhage given the history of recent lung biopsy. Left lung is clear. There is no large effusion on either side. Cardiac silhouette and pulmonary vasculature are within normal limits. IMPRESSION: 1. Small right-sided pneumothorax. 2. Patchy airspace opacities in the right lower lung, which again are favored to represent pulmonary hemorrhage. Dictated by: Dictated on workstation # [id number]
--- NOTE | 2021-07-20 16:22 | Diagnostic Imaging Report ---
INDICATION: Follow-up pneumothorax. COMPARISON: Earlier same day. FINDINGS: Single frontal radiographic view of the chest was obtained and demonstrates stable to slightly diminished small right apical pneumothorax. Again, this is estimated at less than 10%. Patchy airspace opacities are again noted projecting over the right base consistent with pulmonary hemorrhage. Left lung is relatively clear. No large effusion is seen on either side. There is no pneumothorax on the left. Cardiac silhouette is stable. IMPRESSION: 1. Stable to slightly diminished small right apical pneumothorax. 2. Redemonstration of pulmonary hemorrhage in the right lung base. Dictated by: Dictated on workstation # [id number]
== END 2021-07-20 16:10 ==
LOC: RAD 08:50
PROVIDERS: ATTEND Internal Medicine Hematology & Oncology
DX: J93.9 Pneumothorax, unspecified (principal)
CPT/HCPCS: 36415; 71045; 77012; 85025; 85610; 85730; 99156

== ENCOUNTER 2021-09-01 13:37 | Outpatient (RCR) | payer MEDICARE ==
[~2021-09-01 13:37] MED LIST changes: +ALEN70TA80 PO; +CETI10TA17 PO; +DULO30CA49 PO
== END 2021-09-07 | disposition home or self-care (01) ==
LOC: ONC 13:37
PROVIDERS: ATTEND Internal Medicine Hematology & Oncology
DX: Z45.2 Encounter for adjustment and management of vascular access device (principal); C34.31 Malignant neoplasm of lower lobe, right bronchus or lung
CPT/HCPCS: 36415; 86300; 86304; 99213

== ENCOUNTER → 2021-09-04 | Outpatient (CLI) | payer MEDICARE ==
[~2021-09-04] MED LIST changes: +BARIUM for suspension 96% w/w (Vanilla Silq Medium Density) PO ONE; +BARIUM for suspension 98% w/w (Vanilla Silq High Density) PO ONE
--- NOTE | 2021-09-04 13:26 | Diagnostic Imaging Report ---
INDICATION: Difficulty swallowing for the past six months. TECHNIQUE: Patient ingested effervescent crystals as well as thick barium, and imaging over the esophagus was performed. A total of 1.4 minutes of fluoroscopic time was utilized. FINDINGS: Preliminary radiograph of the chest does show a known mass in the right lung base. There are postoperative changes to the right shoulder. Patient took several swallows of thick barium. Patient did cough after each swallow. Initial images did not show evidence of aspiration; however, subsequent swallows demonstrated contrast within the trachea consistent with aspiration. Therefore, the procedure was terminated early. There are very limited images of the esophagus. Limited images demonstrate a fairly smooth contour without evidence of mass or stricture. There are tertiary contractions throughout the esophagus with diffuse esophageal dysmotility. IMPRESSION: Limited study. The procedure had to be terminated after several swallows due to aspiration of barium. There is generalized esophageal dysmotility, but no discrete mass or stricture was seen. Dictated by: Dictated on workstation # [id number]
== END ==
LOC: RAD 11:00
PROVIDERS: ATTEND Pediatrics
DX: R13.14 Dysphagia, pharyngoesophageal phase (principal)
CPT/HCPCS: 74220

== ENCOUNTER 2022-01-12 22:41 | Emergency (ER) | payer MEDICARE ==
[~2022-01-12] VITALS: Ht 157.4 cm; Wt 42.1 kg
[~2022-01-12 22:41] MED LIST changes: -BARIUM for suspension 96% w/w (Vanilla Silq Medium Density) PO ONE; -BARIUM for suspension 98% w/w (Vanilla Silq High Density) PO ONE
[2022-01-12] MEDS ORDERED: TETANUS,DIPTH,PERTUSS P/F (BOOSTRIX) 0.5 ML VIAL IM ONE (23:00)
[2022-01-12 23:04] LABS: BASOPHILS # (AUTO) 0.1 10^3/uL (0.0-0.1); BASOPHILS % (AUTO) 1 % (0-10); EOSINOPHILS # (AUTO) 0.2 10^3/uL (0.0-0.3); EOSINOPHILS % (AUTO) 2 % (0-10); HEMATOCRIT 38 % (35-52); HEMOGLOBIN 11.2 g/dL (11.5-16.0); LYMPHOCYTES % (AUTO) 9 % (12-44); MEAN CORPUSCULAR HEMOGLOBIN 27 pg (25-34); MEAN CORPUSCULAR HGB CONC 30 g/dL (32-36); MEAN CORPUSCULAR VOLUME 90 fL (80-99); MEAN PLATELET VOLUME 10.2 fL (9.0-12.2); MONOCYTES # (AUTO) 0.7 10^3/uL (0.0-1.0); MONOCYTES % (AUTO) 7 % (0-12); NEUTROPHILS # (AUTO) 8.6 10^3/uL (1.8-7.8); NEUTROPHILS % (AUTO) 81 % (42-75); PLATELET COUNT 326 10^3/uL (130-400); WHITE BLOOD COUNT 10.6 10^3/uL (4.3-11.0)
--- NOTE | 2022-01-12 23:10 | ED Fall/Injury ---
General Chief Complaint: Trauma-Non Activation Stated Complaint: FALL,L HIP PAIN Nursing Triage Note: PT ARRIVAL TO ER [facility]IA [facility] WITH COMPLAINT OF FALL AT [facility]. FACILITY AND PATIENT BOTH STATE THAT SHE DROPPED A PIECE OF PUZZLE ON FLOOR AND WHEN BENDING DOWN TO PICK IT UP, SHE FELL BACKWARDS ONTO LEFT SIDE. PT WAS ASSISTED BACK UP AND WAS ABLE TO AMBULATE TO CHAIR. 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 PT ARRIVAL TO ER WITH C-COLLAR IN PLACE. Source: patient, EMS History of Present Illness Date Seen by Provider: Jan 12, 2022 Time Seen by Provider: 22:45 Initial Comments PT ARRIVES VIA EMS FROM [facility], WITH CERVICAL COLLAR IN PLACE PT BENT OVER TO COUNCILPERSON A PUZZLE PIECE, AND FELL BACKWARDS, HITTING THE BACK OF HER HEAD DENIES LOSS OF CONSCIOUSNESS [facility] STAFF GAVE HER AN UNKNOWN PAIN MEDICATION PRIOR TO ARRIVAL ( PER [facility] RECORDS, PT IS ON A FENTANYL PATCH AND HAS HYDROCODONE 2 PILLS EVERY 6 HOURS--2 THIS AM AT 10 AM, AND 2 THIS PM AT 1913 PM WERE GIVEN, PT ALSO RECEIVES ATIVAN TID, AND HAS DARIO IT THIS MORNING, THIS AFTERNOON, AND AT 1914 THIS EVENING. SHE IS ALSO ON TIZANIDINE, GABAPENTIN AND DULOXETINE DAILY) EMS REPORT THAT PT WAS IN RECLINER WHEN THEY ARRIVED, AND WAS REPORTED TO THEM THAT PT WAS ASSISTED UP FROM THE FLOOR AND INTO THE RECLINER. PT IS ON ASPIRIN AND PLAVIX. 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 Allergies and Home Medications Allergies Coded Allergies: morphine (Verified Allergy, Mild, Rash, 07/19/21) Patient Home Medication List Alendronate Sodium (Alendronate Sodium) 70 Mg Tablet, 70 MG PO WEEK, (Reported) Entered as Reported by: ALICIA ABRBER on 07/20/21 1037 Amlodipine Besylate (Amlodipine Besylate) 5 Mg Tablet, 5 MG PO HS, (Reported) Entered as Reported by: SELVIN ARENAS on 07/17/21 1209 Aspirin (Aspirin EC) 81 Mg Tablet.dr, 81 MG PO HS, (Reported) Entered as Reported by: ANASTACIA GARCIA on 03/25/20 0758 Atorvastatin Calcium (Atorvastatin Calcium) 40 Mg Tablet, 40 MG PO HS, (Reported) Entered as Reported by: DIMITRI SALES on 07/04/20 1126 Budesonide/Formoterol Fumarate (Symbicort 160-4.5 Mcg Inhaler) 10.2 Gm Hfa.aer.ad, 2 PUFF IH DAILY, (Reported) Entered as Reported by: ANASTACIA GARCIA on 03/25/20 0758 Cetirizine HCl (Cetirizine HCl) 10 Mg Tablet, 10 MG PO DAILY PRN, (Reported) Entered as Reported by: ALICIA BARBER on 07/20/21 1037 Clopidogrel Bisulfate (Clopidogrel) 75 Mg Tablet, 75 MG PO DAILY, (Reported) Entered as Reported by: ALICIA BARBER on 07/20/21 1037 Duloxetine HCl (Duloxetine HCl) 30 Mg Capsule.dr, 30 MG PO DAILY, (Reported) Entered as Reported by: ALICIA BARBER on 07/20/21 1037 Gabapentin (Gabapentin) 600 Mg Tablet, 600 MG PO TID, (Reported) Entered as Reported by: ANASTACIA GARCIA on 03/25/20 075 Hydrocodone/Acetaminophen (Hydrocodone-Acetamin 10-325 mg) 1 Each Tablet, 1 EACH PO Q4H PRN for PAIN-MODERATE (5-7), (Reported) Entered as Reported by: ALICIA BARBER on 07/20/21 1037 Ipratropium/Albuterol Sulfate (Iprat-Albut 0.5-3(2.5) mg/3 ml) 3 Ml Ampul.neb, 3 ML IH BID PRN for SHORTNESS OF BREATH, (Reported) Entered as Reported by: ANASTACIA GARCIA on 03/25/20 0758 Lisinopril (Lisinopril) 40 Mg Tablet, 40 MG PO DAILY, (Reported) Entered as Reported by: ALICIA BARBER on 07/20/21 1037 Metoprolol Succinate (Metoprolol Succinate) 50 Mg Tab.er.24h, 50 MG PO HS, (Reported) Entered as Reported by: ANASTACIA GARCIA on 03/25/20 0758 Pantoprazole Sodium (Pantoprazole Sodium) 40 Mg Tablet.dr, 40 MG PO HS, (Reported) Entered as Reported by: ANASTACIA GARCIA on 03/25/20757 Pramipexole Di-HCl (Pramipexole Dihydrochloride) 0.25 Mg Tablet, 0.5 MG PO HS, (Reported) Entered as Reported by: ANASTACIA GARCIA on 03/25/20757 Sertraline HCl (Sertraline HCl) 25 Mg Tablet, 25 MG PO HS, (Reported) Entered as Reported by: SELVIN ARENAS on 07/17/21 120 Tiotropium [place] (Spiriva) 1 Inh Aerp, 1 CAP INH DAILY, (Reported) Entered as Reported by: DIMITRI SALES on 07/04/20 1126 Tizanidine HCl (Tizanidine HCl) 4 Mg Capsule, 4 MG PO HS, (Reported) Entered as Reported by: ANASTACIA GARCIA on 03/25/20757 Trazodone HCl (Trazodone HCl) 150 Mg Tablet, 150 MG PO HS, (Reported) Entered as Reported by: ANASTACIA GARCIA on 03/25/20757 lidocaine HCL (lidocaine HCL) 1 Each Adh..patch, 1 EACH TP UD, (Reported) Entered as Reported by: SELVIN ARENAS on 07/17/211208 Review of Systems Review of Systems Constitutional: no symptoms reported Eyes: No Symptoms Reported Ears, Nose, Mouth, Throat: no symptoms reported Respiratory: no symptoms reported Cardiovascular: no symptoms reported Gastrointestinal: no symptoms reported Genitourinary: no symptoms reported Musculoskeletal: see HPI Skin: see HPI Past Zcqgxoi-Fxokwz-Cxqsva Hx Patient Social History Tobacco Use?: Yes Tobacco type used: Cigarettes Smoking Status: Current Everyday Smoker Use of E-Cig and/or Vaping dev: No Substance use?: No Alcohol Use?: Yes Alcohol type: Wine Alcohol Frequency: Couple times a week Pt feels they are or have been: No Immunizations Up To Date Tetanus Booster (TDap): Unknown Influenza Vaccine Up-to-Date: Yes; Up-to-Date First/Initial COVID19 Vaccinat: 08/12/20 Second COVID19 Vaccination Joe: 09/16/20 Third COVID19 Vaccination Date: 04/20/21 Seasonal Allergies Seasonal Allergies: No Past Medical History Surgeries: Yes (double mastectomy) Appendectomy, Breast, Cardiac, Coronary Stent, Gallbladder, Hysterectomy, Joint Replacement, Oophorectomy, Orthopedic, Renal Respiratory: Yes (O2 DEPENDENT AT 3L/NC; METASTATIC DISEASE TO LUNGS) Pneumonia, COPD Currently Using CPAP: No Currently Using BIPAP: No 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; 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 WITH STENTS) Coronary Artery Disease, Deep Vein Thrombosis, High Cholesterol, Hypertension, Peripheral Vascular Neurological: Yes (RESTLESS LEG SYNDROME) Concussion 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 S/P DIANELYS/BSO PT HAS HAD BILATERAL MASTECTOMY FOR BENIGN DISEASE--HAD FIBROCYSTIC BREAST DISEASE--NO BREAST CANCER. Psychosocial: No Integumentary: No Blood Disorders: Yes (ANEMIA) Family Medical History SOCIAL HISTORY: -SMOKES 1/4 PPD NOW, BUT USED TO SMOKE AT LEAST 1 PPD -ETOH--DRINKS COUPLE OF TIMES / WEEK -DENIES DRUG USE PAST SURGICAL HISTORY: -BILATERAL MASTECTOMY FOR BENIGN FIBROCYSTIC BREAST DISEASE--NO HISTORY OF BREAST CANCER -TOTAL HYSTERECTOMY / BILATERAL SALPINGO-OOPHORECTOMY FOR OVARIAN CANCER -APPENDECTOMY -CHOLECYSTECTOMY -C-SPINE SURGERY -L-SPINE SURGERY -LEFT CARPAL TUNNEL AND LEFT CUBITAL TUNNEL RELEASE 07/[address] SANTIAGO -SHOULDER ARTHROSCOPY -CARDIAC CATH WITH STENT 03/[address] KINGSTON: FINDINGS: 1.Left main: patent. 2.LAD: patent LAD. However a decent-sized first diagonal artery has moderate to severe ostial stenosis. Stenosis severity 70 percent. Mid first diagonal artery stenosis of 70-80 percent. 3.Left circumflex artery: patent. Tortuous. 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 Severe mid stenosis. Stenosis severity 80-90 percent. 5.Left heart catheterization: LV pressure 132/16 mmHg. LVEDP 18 mmHg. Aortic pressure 132/54 mmHg. Normal LV function with no wall motion abnormality.no gradient across the aortic valve. 6. Right upper extremity angiogram showed small radial artery with no stenosis however an arterial loop was noted. RECOMMENDATIONS: pCI to the mid RCA is recommended. INTERVENTION DETAILS: 7000 heparin given. Plavix 300 mg given. We first tried to engage with an Amplatz 1 guide catheter but were not able to get coaxial position.we then took a JL 4.5 guide catheter and with difficulty we were able to engage the ostium of the RCA. We first used a BMW wire but were not able to have a stable guide catheter and wire position. Therefore we then took a choice floppy wire and were able to cross the lesion. Direct stenting with a resolute integrity 2.5 x 8 mm stent which was deployed at 18 sheridan for 25 seconds. Excellent results with no residual stenosis and BRAIN-3 flow. Wire and stent balloon were taken out. Post-angiogram showed excellent results with mild distal disease which was left alone. Minx closure to the RFA. CONCLUSIONS: 1. 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 2. Moderate to severe first diagonal artery stenosis. 3. Dual antiplatelet therapy for at least 1 year. 4. Aggressive secondary prevention measures. 5. Smoking cessation was strongly recommended. -KIDNEY STONE REMOVAL -BILATERAL KNEE REPLACEMENTS -LEFT HIP REPLACEMENT Physical Exam Vital Signs Vital Signs - First Documented 01/12/22 22:43 Temp 36.0 Pulse 69 Resp 18 B/P (MAP) 157/81 (106) Pulse Ox 99 O2 Delivery Room Air Capillary Refill : Less Than 3 Seconds Height, Weight, BMI Height: '" Weight: lbs. oz. kg; 16.00 BMI Method: General Appearance: cachetic, other (PT IS DROWSY AND SPEECH IS SLOW AND SOMEWHAT SLURRED--PT RECEIVED UNKNOWN PAIN MEDICATION PRIOR TO ARRIVAL. ) HEENT: PERRL/EOMI, other (DENTURES IN PLACE. NO EXTERNAL EVIDENCE OF TRAUMA AND NO TENDERNESS TO FACE. HAS PINPOINT WOUND TO LEFT POSTERIOR SCALP. NO SWELLING, NO ACTIVE BLEEDING. ) Neck: other (IN CERVICAL COLLAR) Cardiovascular: regular rate, rhythm, no murmur Respiratory: normal breath sounds, no respiratory distress, no accessory muscle use, other (DIFFUSE LEFT CHEST WALL TENDERNESS, NO CREPITANCE OR SUB Q AIR. ) Gastrointestinal: soft; No distended, No guarding, No rebound; tenderness (MILD LEFT UPPER QUADRANT TENDERNESS. ) Extremities: other (DIFFUSE TENDERNESS TO LEFT SHOULDER AND HUMERUS. NO DEFORMITY OR EXTERNAL EVIDENCE OF TRAUMA. DIFFUSE TENDERNES TO LEFT HIP AND UPPER THIGH. NO DEFORMITY OR SHORTENING OR ROTATION. NO EXTERNAL EVIDENCE OF TRAUMA. DISTAL MOTOR / SENSORY / VASCULAR INTACT. ) Neurologic/Psychiatric: no motor/sensory deficits, alert, oriented x 3, other (APPEARS TO BE MEDICATED AT THIS TIME WITH SLOW SLIGHTLY SLURRED SPEECH, BUT IS NOT CONFUSED AND IS ABLE TO GIVE ALL HISTORY. ) Skin: normal color (VERY TRIANA), warm/dry [place] Score Best Eye Response: (4) Open Spontaneously Best Verbal Response: (5) Oriented Best Motor Response: (6) Obeys Commands La Total: 15 Progress/Results/Core Measures Results/Orders Lab Results Laboratory Tests Test 01/12/22 22:48 Range/Units White Blood Count 10.6 4.3-11.0 10^3/uL Red Blood Count 4.19 3.80-5.11 10^6/uL Hemoglobin 11.2 L 11.5-16.0 g/dL Hematocrit 38 35-52 % Mean Corpuscular Volume 90 80-99 fL Mean Corpuscular Hemoglobin 27 25-34 pg Mean Corpuscular Hemoglobin Concent 30 L 32-36 g/dL Red Cell Distribution Width 15.0 H 10.0-14.5 % Platelet Count 326 130-400 10^3/uL Mean Platelet Volume 10.2 9.0-12.2 fL Immature Granulocyte % (Auto) 1 % Neutrophils (%) (Auto) 81 H 42-75 % Lymphocytes (%) (Auto) 9 L 12-44 % Monocytes (%) (Auto) 7 0-12 % Eosinophils (%) (Auto) 2 0-10 % Basophils (%) (Auto) 1 0-10 % Neutrophils # (Auto) 8.6 H 1.8-7.8 10^3/uL Lymphocytes # (Auto) 1.0 1.0-4.0 10^3/uL Monocytes # (Auto) 0.7 0.0-1.0 10^3/uL Eosinophils # (Auto) 0.2 0.0-0.3 10^3/uL Basophils # (Auto) 0.1 0.0-0.1 10^3/uL Immature Granulocyte # (Auto) 0.1 0.0-0.1 10^3/uL Prothrombin Time 12.8 12.2-14.7 SEC INR Comment 0.9 0.8-1.4 Activated Partial Thromboplast Time 37 H 24-35 SEC Sodium Level 137 135-145 MMOL/L Potassium Level 4.9 3.6-5.0 MMOL/L Chloride Level 98 98-107 MMOL/L Carbon Dioxide Level 29 21-32 MMOL/L Anion Gap 10 5-14 MMOL/L Blood Urea Nitrogen 26 H 7-18 MG/DL Creatinine 0.95 0.60-1.30 MG/DL Estimat Glomerular Filtration Rate 61 BUN/Creatinine Ratio 27 Glucose Level 103 70-105 MG/DL Calcium Level 9.9 8.5-10.1 MG/DL Corrected Calcium 9.9 8.5-10.1 MG/DL Total Bilirubin 0.4 0.1-1.0 MG/DL Aspartate Amino Transf (AST/SGOT) 57 H 5-34 U/L Alanine Aminotransferase (ALT/SGPT) 44 0-55 U/L Alkaline Phosphatase 259 H 40-136 U/L Total Protein 7.4 6.4-8.2 GM/DL Albumin 4.0 3.2-4.5 GM/DL My Orders Orders - BALTAZAR WOODS DO Ed Iv/Invasive Line Start (01/12/22 22:49) Monitor-Rhythm Ecg Trace Only (01/12/22 22:49) Ct Head/Cervical Spine Wo (01/12/22 22:49) Chest 1 View, Ap/Pa Only (01/12/22 22:49) Pelvis With Left Hip 2-3 Views (01/12/22 22:49) Dipht,Pertuss(Acell),Tet Adult (Boostrix (01/12/22 23:00) Cbc With Automated Diff (01/12/22 22:58) Comprehensive Metabolic Panel (01/12/22 22:58) Protime With Inr (01/12/22 22:58) Partial Thromboplastin Time (01/12/22 22:58) Shoulder, Left, 3 Views (01/12/22 22:58) Humerus, Left, 2 Views (01/12/22 22:58) Ct Chest/Abdomen/Pelvis W (01/12/22 22:58) Ct Thoracic/Lumbar Spine Wo (01/12/22 22:58) Femur, Left, 2 Views (01/12/22 23:15) Iohexol Injection (Omnipaque 350 Mg/Ml 1 (01/13/22 00:30) Received Contrast (Hold Metformin- Contr (01/13/22 00:30) Ns (Ivpb) (Sodium Chloride 0.9% Ivpb Bag (01/13/22 00:30) Medications Given in ED Current Medications Medications Dose Ordered Sig/Deneen Route Start Time Stop Time Status Last Admin Dose Admin Diphtheria/ Tetanus/Acell Pertussis 0.5 ml ONCE ONCE IM 01/12/22 23:00 01/12/22 23:01 DC 01/12/22 23:15 0.5 ML Iohexol 75 ml ONCE ONCE IV 01/13/22 00:30 01/13/22 00:43 DC 01/13/22 00:31 75 ML Sodium Chloride 100 ml ONCE ONCE IV 01/13/22 00:30 01/13/22 00:43 DC 01/13/22 00:31 80 ML Vital Signs/I&O 01/12/22 22:43 Temp 36.0 Pulse 69 Resp 18 B/P (MAP) 157/81 (106) Pulse Ox 99 O2 Delivery Room Air Blood Pressure Mean: 106 Diagnostic Imaging Comments ALL PENDING RADIOLOGIST REVIEW: CXR--NO ACUTE PROCESS, CHRONIC LUNG CHANGES/MASS RLL, OLD RIB FRACTURES, DEGENERATIVE CHANGES OF LOCT5PAMD LEFT SHOULDER--NO ACUTE PROCESS, CHRONIC DEGENERATIVE CHANGES LEFT HUMERUS--NO ACUTE PROCESS, CHRONIC DEGENERATIVE CHANGES PELVIS/LEFT HIP--NO ACUTE PROCESS, HARDWARE INTACT LEFT FEMUR--NO ACUTE PROCESS, HARDWARE INTACT. CT HEAD/CERVICAL SPINE--NO ACUTE PROCESS, PER [facility] VIA FAX AT 0038 CT THORACIC/LUMBAR SPINE CT CHEST/ABDOMEN/PELVIS Reviewed: Reviewed by Me Departure Impression Primary Impression: Fall from standing Additional Impressions: Minor head injury without loss of consciousness Contusion of left hip Contusion of left shoulder Disposition: 03 XFER SNF Condition: Stable Departure-Patient Inst. Decision time for Depature: 01:40 Referrals: DIMITRI CARPIO DO (PCP) Primary Care Physician Patient Instructions: Closed Head Injury (DC), Contusion (DC), Preventing Falls ED Add. Discharge Instructions: ICE TO SORE AREAS TAKE YOUR REGULAR MEDICATIONS PRESCRIBED FOLLOW UP WITH YOUR DR NEEDED RETURN TO ER IF SYMPTOMS WORSEN All discharge instructions reviewed with patient and/or family. Voiced understanding. BALTAZAR WOODS DO Jan 12, 2022 23:10
[2022-01-12 23:14] LABS: POTASSIUM 4.9 MMOL/L (3.6-5.0)
[2022-01-12 23:15] LABS: CALCIUM 9.9 MG/DL (8.5-10.1); INR 0.9 (0.8-1.4); PROTHROMBIN TIME PATIENT 12.8 SEC (12.2-14.7)
[2022-01-12 23:16] LABS: TOTAL PROTEIN 7.4 GM/DL (6.4-8.2)
[2022-01-12 23:18] LABS: BILIRUBIN,TOTAL 0.4 MG/DL (0.1-1.0)
[2022-01-12 23:20] LABS: CREATININE SERUM 0.95 MG/DL (0.60-1.30)
[2022-01-13] MEDS ORDERED: IOHEXOL 350 MG/ML 100 ML (OMNIPAQUE 350) VIAL IV ONE (00:30)
[2022-01-13] MEDS ORDERED: HOLD METFORMIN - RECEIVED CONTRAST 20 ML VIAL IV SCH (00:30)
[2022-01-13] MEDS ORDERED: NS 100 ML (IVPB) BAG IV ONE (00:30)
[2022-01-13 01:59] VITALS: BP 129/82
--- NOTE | 2022-01-13 06:54 | Diagnostic Imaging Report ---
INDICATION: Fall. FINDINGS: The heart size is normal. There is a rounded masslike area in the right lung base. There is no pleural effusion or pneumothorax. The mediastinum is unremarkable. IMPRESSION: Rounded masslike area in the right lung base. This likely reflects round pneumonia, however, the possibility of a neoplastic process cannot be excluded. Recommend clinical correlation. Dictated by: Dictated on workstation # [id number]
--- NOTE | 2022-01-13 07:23 | Diagnostic Imaging Report ---
INDICATION: Pain. FINDINGS: There are postsurgical changes of a left hip arthroplasty. The hardware appears to be in satisfactory position. There is no fracture or dislocation. There is no loosening. Soft tissues are unremarkable. IMPRESSION: Stable postsurgical changes of left hip arthroplasty. Dictated by: Dictated on workstation # [id number]
--- NOTE | 2022-01-13 07:36 | Diagnostic Imaging Report ---
PROCEDURE: CT thoracic and lumbar spine without contrast. TECHNIQUE: Multiple contiguous axial images were obtained through the thoracic and lumbar spine without the use of intravenous contrast. Sagittal and coronal reformations were then performed. All CT scans use one or more of the following dose optimizing techniques: automated exposure control, MA and/or KvP adjustment based on a patient size and exam type, or iterative reconstruction. INDICATION: Fall/trauma There is mild right convexity curvature of thoracic and lumbar spine. Surgical findings are seen within the lower cervical spine with posterior interlinked bipedicular spinal fusion extending from L2 through S1 in the lumbar region with marked associated degenerative disc disease at the T12-L1 and L1-L2 levels. Artifact from hardware does limit evaluation however there is no evidence of an acute fracture or subluxation. No paraspinous hematoma is identified. There is an approximate 5 cm in diameter right lower lobe pulmonary mass indicating neoplasm. There is extensive aortoiliac atherosclerotic calcification. IMPRESSION: Extensive surgical and degenerative findings in the lumbar spine however no acute abnormality is seen within the thoracic or lumbar spine regions. There is approximately a 5 cm mass in the lower lobe of the right lung highly suspicious for neoplasm and clinical correlation is recommended. No definite metastatic disease is seen on the limited study. Dictated by: Dictated on workstation # [id number]
--- NOTE | 2022-01-13 07:36 | Diagnostic Imaging Report ---
PROCEDURE: CT chest, abdomen, and pelvis with contrast. TECHNIQUE: Multiple contiguous axial images were obtained through the chest, abdomen, and pelvis after the administration of intravenous contrast. Auto Exposure Controls were utilized during the CT exam to meet ALARA standards for radiation dose reduction. INDICATION: Trauma; fall CT CHEST: There is artifact from metallic right hip prosthesis, however, there is no evidence of pneumothorax. There is an irregular 5.2 x 4.5 cm lobulated mass in the right lung base consistent with neoplasm. Left lung appears clear. There is no evidence of hemothorax. There are surgical findings in the cervical spine. There is no evidence of great vessel injury in the mediastinum. No mediastinal hematoma is seen. There are advanced degenerative findings in the left shoulder. Left mastectomy and right breast implants are noted. IMPRESSION: A 5.2 x 4.5 cm mass in the right lung base is most consistent with lung neoplasm, however, there is no CT evidence of acute abnormality in the thorax. CT abdomen and pelvis: COMPARISON: 07/02/2020 Similar to the previous study, there is extensive biliary ductal dilatation most pronounced in the left hepatic lobe. No focal hepatic, pancreatic, adrenal gland or splenic abnormality is identified. Kidneys are also unremarkable with artifact limiting evaluation of the retroperitoneal from spinal hardware. There is no evidence of free fluid or focal hematoma. Extensive aortoiliac atherosclerotic calcifications are noted. No definite fracture is seen. IMPRESSION: Continued biliary ductal dilatation without CT evidence of acute abnormality involving the abdominal pelvic viscera. Dictated by: Dictated on workstation # [id number]
--- NOTE | 2022-01-13 07:37 | Diagnostic Imaging Report ---
INDICATION: Shoulder pain. FINDINGS: There is moderate osteoarthritic change in the left shoulder. There is no fracture or dislocation. The soft tissues are unremarkable. There is diffuse infiltrate in the left lung. 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 Diffuse infiltrate in the left lung which is nonspecific. Recommend clinical correlation and if warranted followup with CT chest. Dictated by: Dictated on workstation # [id number]
--- NOTE | 2022-01-13 07:39 | Diagnostic Imaging Report ---
INDICATION: Pelvic pain. FINDINGS: There are postsurgical changes of a left hip arthroplasty. There are postsurgical changes in the lower lumbar spine. The bony pelvis is grossly intact. THere is no fracture or dislocation. IMPRESSION: Postsurgical changes in the lumbar spine and left hip, as described. Dictated by: Dictated on workstation # [id number]
--- NOTE | 2022-01-13 07:39 | Diagnostic Imaging Report ---
PROCEDURE: CT head and CT cervical spine without contrast. TECHNIQUE: Multiple contiguous axial images were obtained through the brain and cervical spine without the use of intravenous contrast. Sagittal and coronal reformations through the cervical spine were then performed. Auto Exposure Controls were utilized during the CT exam to meet ALARA standards for radiation dose reduction. INDICATION: Head and neck pain after fall FINDINGS: There is prominence of the ventricles and sulci. There is chronic microvascular ischemic disease. There is no mass, hemorrhage or extra-axial fluid collection. The calvarium is intact. There is a left parietal scalp hematoma. Sinuses and mastoid air cells are clear. There has been an anterior cervical disc fusion at C3-C4. There is bone graft material within the disc space at C4-C5, C5-C6 and C6-C7. The vertebral body heights are well-maintained. There is no fracture or traumatic subluxation. The odontoid is intact. The lateral masses are well-aligned. IMPRESSION: Atrophy and chronic microvascular ischemic disease however no acute intracranial abnormality. Left parietal scalp hematoma. Extensive postsurgical changes in the cervical spine without acute fracture or traumatic subluxation. Dictated by: Dictated on workstation # [id number]
--- NOTE | 2022-01-13 07:39 | Diagnostic Imaging Report ---
INDICATION: Fall/trauma. AP and lateral views of left humerus are obtained with comparison made to the study of 07/03/2020. There is old fracture deformity in the proximal left humerus with degenerative change at the glenohumeral joint. No definite acute fracture is identified. Note is made of mildly displaced left lateral rib fractures. IMPRESSION: Old fracture deformities involving left humerus and shoulder with mildly angulated left rib fractures which are also likely chronic, however, correlation to site of pain would be useful. Dictated by: Dictated on workstation # [id number]
== END 2022-01-13 03:04 ==
LOC: EDUNIT# 22:41 → ER 22:42
DX: S09.90XA Unspecified injury of head, initial encounter (principal); S01.00XA Unspecified open wound of scalp, initial encounter; S70.02XA Contusion of left hip, initial encounter; S40.012A Contusion of left shoulder, initial encounter; R10.12 Left upper quadrant pain; R07.89 Other chest pain; J44.9 Chronic obstructive pulmonary disease, unspecified; C56.9 Malignant neoplasm of unspecified ovary; C78.00 Secondary malignant neoplasm of unspecified lung; C77.0 Secondary and unspecified malignant neoplasm of lymph nodes of head, face and neck; F17.210 Nicotine dependence, cigarettes, uncomplicated; Z99.81 Dependence on supplemental oxygen; Z79.82 Long term (current) use of aspirin; Z79.02 Long term (current) use of antithrombotics/antiplatelets; W18.30XA Fall on same level, unspecified, initial encounter; Y92.129 Unspecified place in nursing home as the place of occurrence of the external cause
CPT/HCPCS: 36415; 70450; 71045; 71260; 72125; 72128; 72131; 73030; 73060; 73552; 74177; 80053; 85025; 85610; 85730; 90715; 93041

== ENCOUNTER 2022-02-15 14:17 | Emergency (ER) | payer MEDICARE ==
[2022-02-15] MEDS ORDERED: fentaNYL INJ 100 MCG/2 ML AMP IVP ONE ×2 (15:00→18:00)
[2022-02-15] MEDS ORDERED: ONDANSETRON 4 MG/2 ML (SDV) Z0FRAN IVP ONE (15:00)
[2022-02-15 15:11] LABS: BASOPHILS # (AUTO) 0.1 10^3/uL (0.0-0.1); BASOPHILS % (AUTO) 1 % (0-10); EOSINOPHILS # (AUTO) 0.1 10^3/uL (0.0-0.3); EOSINOPHILS % (AUTO) 1 % (0-10); HEMATOCRIT 37 % (35-52); LYMPHOCYTES # (AUTO) 1.1 10^3/uL (1.0-4.0); LYMPHOCYTES % (AUTO) 9 % (12-44); MEAN CORPUSCULAR HEMOGLOBIN 26 pg (25-34); MEAN CORPUSCULAR HGB CONC 30 g/dL (32-36); MEAN CORPUSCULAR VOLUME 89 fL (80-99); MEAN PLATELET VOLUME 10.3 fL (9.0-12.2); MONOCYTES # (AUTO) 0.8 10^3/uL (0.0-1.0); MONOCYTES % (AUTO) 6 % (0-12); NEUTROPHILS # (AUTO) 9.8 10^3/uL (1.8-7.8); NEUTROPHILS % (AUTO) 83 % (42-75); PLATELET COUNT 363 10^3/uL (130-400); WHITE BLOOD COUNT 11.9 10^3/uL (4.3-11.0)
--- NOTE | 2022-02-15 15:13 | ED Fall/Injury ---
General Chief Complaint: Trauma-Non Activation Stated Complaint: FALL L LEG PAIN Nursing Triage Note: PT TO [facility] BY [facility] WITH C/O A FALL TODAY FROM TRIPPING ON HER O2 TUBE. PT C/O L FEMUR PAIN. L FEMUR IS DEFORMED. Source: patient Exam Limitations: no limitations (KYLIE BARRIENTOS MD) History of Present Illness Date Seen by Provider: Feb 15, 2022 Time Seen by Provider: 14:58 Initial Comments Patient is an 81-year-old female with a history of metastatic cancer on hospice and is a DNR who presents to the emergency department by ambulance after a fall today. Patient was walking and tripped on her oxygen tubing. She had immediate pain with deformity of the left midshaft femur. She states she also hit her head. She has an obvious contusion small abrasion left samaritan. She denies loss of consciousness. She denies any other complaints of pain. No chest pain, shortness of breath, she is wearing oxygen. No abdominal pain, nausea, vomiting. Denies numbness, tingling to the left lower extremity. On exam distal pulses intact. Strong femoral pulses to the left lower extremity. Obvious midshaft swelling/deformity of the left femur. Patient desires repair so that she can remain ambulatory. All other review of systems reviewed and negative except as stated. Occurred: just prior to arrival Severity: severe Injuries/Pain Location: lower extremity Context: tripped Loss of Consciousness: no loss of consciousness Modifying Factors: Worse With Movement Associated Symptoms (Fall): Denies Symptoms (KYLIE BARRIENTOS MD) Allergies and Home Medications Allergies Coded Allergies: morphine (Verified Allergy, Mild, Rash, 07/19/21) Patient Home Medication List Home Medication List Reviewed: Yes (KYLIE BARRIENTOS MD) Alendronate Sodium (Alendronate Sodium) 70 Mg Tablet, 70 MG PO WEEK, (Reported) Entered as Reported by: ALICIA BARBER on 07/20/21 1037 Amlodipine Besylate (Amlodipine Besylate) 5 Mg Tablet, 5 MG PO HS, (Reported) Entered as Reported by: SELVIN ARENAS on 07/17/21 1209 Aspirin (Aspirin EC) 81 Mg Tablet.dr, 81 MG PO HS, (Reported) Entered as Reported by: ANASTACIA GARCIA on 03/25/20 0758 Atorvastatin Calcium (Atorvastatin Calcium) 40 Mg Tablet, 40 MG PO HS, (Report ed) Entered as Reported by: DIMITRI SALES on 07/04/20 1126 Budesonide/Formoterol Fumarate (Symbicort 160-4.5 Mcg Inhaler) 10.2 Gm Hfa.aer.ad, 2 PUFF IH DAILY, (Reported) Entered as Reported by: ANASTACIA GARCIA on 03/25/20 0758 Cetirizine HCl (Cetirizine HCl) 10 Mg Tablet, 10 MG PO DAILY PRN, (Reported) Entered as Reported by: ALICIA BARBER on 07/20/21 1037 Clopidogrel Bisulfate (Clopidogrel) 75 Mg Tablet, 75 MG PO DAILY, (Reported) Entered as Reported by: ALICIA BRABER on 07/20/21 1037 Duloxetine HCl (Duloxetine HCl) 30 Mg Capsule.dr, 30 MG PO DAILY, (Reported) Entered as Reported by: ALICIA BARBER on 07/20/21 1037 Gabapentin (Gabapentin) 600 Mg Tablet, 600 MG PO TID, (Reported) Entered as Reported by: ANASTACIA GARCIA on 03/25/20 075 Hydrocodone/Acetaminophen (Hydrocodone-Acetamin 10-325 mg) 1 Each Tablet, 1 EACH PO Q4H PRN for PAIN-MODERATE (5-7), (Reported) Entered as Reported by: ALICIA BARBER on 07/20/21 1037 Ipratropium/Albuterol Sulfate (Iprat-Albut 0.5-3(2.5) mg/3 ml) 3 Ml Ampul.neb, 3 ML IH BID PRN for SHORTNESS OF BREATH, (Reported) Entered as Reported by: ANASTACIA GARCIA on 03/25/20 075 Lisinopril (Lisinopril) 40 Mg Tablet, 40 MG PO DAILY, (Reported) Entered as Reported by: ALICIA BARBER on 07/20/21 1037 Metoprolol Succinate (Metoprolol Succinate) 50 Mg Tab.er.24h, 50 MG PO HS, (Reported) Entered as Reported by: ANASTACIA GARCIA on 03/25/20 075 Pantoprazole Sodium (Pantoprazole Sodium) 40 Mg Tablet.dr, 40 MG PO HS, (Reported) Entered as Reported by: ANASTACAI GARCIA on 03/25/20 075 Pramipexole Di-HCl (Pramipexole Dihydrochloride) 0.25 Mg Tablet, 0.5 MG PO HS, (Reported) Entered as Reported by: ANASTACIA GARCIA on 03/25/20 0758 Sertraline HCl (Sertraline HCl) 25 Mg Tablet, 25 MG PO HS, (Reported) Entered as Reported by: SELVIN ARENAS on 07/17/21 120 Tiotropium Forrest[place] (Spiriva) 1 Inh Aerp, 1 CAP INH DAILY, (Reported) Entered as Reported by: DIMITRI SALES on 07/04/20 1126 Tizanidine HCl (Tizanidine HCl) 4 Mg Capsule, 4 MG PO HS, (Reported) Entered as Reported by: ANASTACIA GARCIA on 03/25/20 075 Trazodone HCl (Trazodone HCl) 150 Mg Tablet, 150 MG PO HS, (Reported) Entered as Reported by: ANASTACIA GARCIA on 03/25/20757 lidocaine HCL (lidocaine HCL) 1 Each Adh..patch, 1 EACH TP UD, (Reported) Entered as Reported by: SELVIN ARENAS on 07/17/21 120 Review of Systems Review of Systems Constitutional: see HPI Eyes: No Symptoms Reported Ears, Nose, Mouth, Throat: no symptoms reported Respiratory: no symptoms reported Cardiovascular: no symptoms reported Gastrointestinal: no symptoms reported Genitourinary: no symptoms reported Musculoskeletal: other (Extremity) (KYLIE BARRIENTOS MD) Past Ovzumdx-Oyveuo-Dbgljh Hx Patient Social History Tobacco Use?: No Use of E-Cig and/or Vaping dev: No Substance use?: No Alcohol Use?: No Pt feels they are or have been: No (KYLIE BARRIENTOS MD) Immunizations Up To Date Tetanus Booster (TDap): Unknown Influenza Vaccine Up-to-Date: Yes; Up-to-Date First/Initial COVID19 Vaccinat: 08/12/20 Second COVID19 Vaccination Joe: 09/16/20 Third COVID19 Vaccination Date: 04/20/21 (KYLIE BARRIENTOS MD) Seasonal Allergies Seasonal Allergies: No (KYLIE BARRIENTOS MD) Past Medical History Surgery/Hospitalization HX: THROAT, OVARIAN AND [facility] CANCER, Surgeries: Yes (double mastectomy) Appendectomy, Breast, Cardiac, Coronary Stent, Gallbladder, Hysterectomy, Joint Replacement, Oophorectomy, Orthopedic, Renal Respiratory: Yes (O2 DEPENDENT AT 3L/NC; METASTATIC DISEASE TO LUNGS) Pneumonia, COPD Currently Using CPAP: No Currently Using BIPAP: No 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; 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 WITH 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) Coronary Artery Disease, Deep Vein Thrombosis, High Cholesterol, Hypertension, Peripheral Vascular Neurological: Yes (RESTLESS LEG SYNDROME) Concussion Reproductive Disorders: Yes SIMONIZER History: Hysterectomy, Menopausal Genitourinary: Yes Bladder Infection, Kidney Stones Gastrointestinal: Yes Gastroesophageal Reflux, Ulcer, Gall Bladder Disease Musculoskeletal: Yes (MULTIPLE ORTHO SURGERIES) Degenerate Disk Disease, Osteoporosis, Arthritis, Back Injury, Chronic Back Pain Endocrine: No HEENT: Yes (METASTATIC DISEASE TO THROAT) Cancer: Yes Did You Recieve Any Treatments: Yes What Type of Treatment Did You: Surgical Intervention Psychosocial: No Integumentary: No Blood Disorders: Yes (ANEMIA) (KYLIE BARRIENTOS MD) Family Medical History SOCIAL HISTORY: -SMOKES 1/4 PPD NOW, BUT USED TO SMOKE AT LEAST 1 PPD -ETOH--DRINKS COUPLE OF TIMES / WEEK -DENIES DRUG USE PAST SURGICAL HISTORY: -BILATERAL MASTECTOMY FOR BENIGN FIBROCYSTIC BREAST DISEASE--NO HISTORY OF BREAST CANCER -TOTAL HYSTERECTOMY / BILATERAL SALPINGO-OOPHORECTOMY FOR OVARIAN CANCER -APPENDECTOMY -CHOLECYSTECTOMY -C-SPINE SURGERY -L-SPINE SURGERY -LEFT CARPAL TUNNEL AND LEFT CUBITAL TUNNEL RELEASE 07/[address] SANTIAGO -SHOULDER ARTHROSCOPY -CARDIAC CATH WITH STENT 03/[address] KINGSTON: FINDINGS: 1.Left main: patent. 2.LAD: patent LAD. However a decent-sized first diagonal artery has moderate to severe ostial stenosis. Stenosis severity 70 percent. Mid first diagonal artery stenosis of 70-80 percent. 3.Left circumflex artery: patent. Tortuous. 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 Severe mid stenosis. Stenosis severity 80-90 percent. 5.Left heart catheterization: LV pressure 132/16 mmHg. LVEDP 18 mmHg. Aortic pressure 132/54 mmHg. Normal LV function with no wall motion abnormality.no gradient across the aortic valve. 6. Right upper extremity angiogram showed small radial artery with no stenosis however an arterial loop was noted. RECOMMENDATIONS: pCI to the mid RCA is recommended. INTERVENTION DETAILS: 7000 heparin given. Plavix 300 mg given. We first tried to engage with an Amplatz 1 guide catheter but were not able to get coaxial position.we then took a JL 4.5 guide catheter and with difficulty we were able to engage the ostium of the RCA. We first used a BMW wire but were not able to have a stable guide catheter and wire position. Therefore we then took a choice floppy wire and were able to cross the lesion. Direct stenting with a resolute integrity 2.5 x 8 mm stent which was deployed at 18 sheridan for 25 seconds. Excellent results with no residual stenosis and BRAIN-3 flow. Wire and stent balloon were taken out. Post-angiogram showed excellent results with mild distal disease which was left alone. Minx closure to the RFA. CONCLUSIONS: 1. 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 2. Moderate to severe first diagonal artery stenosis. 3. Dual antiplatelet therapy for at least 1 year. 4. Aggressive secondary prevention measures. 5. Smoking cessation was strongly recommended. -KIDNEY STONE REMOVAL -BILATERAL KNEE REPLACEMENTS -LEFT HIP REPLACEMENT (KYLIE BARRIENTOS MD) Physical Exam Vital Signs Vital Signs - First Documented 02/15/22 14:30 Temp 37.0 Pulse 88 Resp 20 B/P (MAP) 148/76 (100) (YANCI MAZA MD) Vital Signs Capillary Refill : (KYLIE BARRIENTOS MD) Height, Weight, BMI Height: '" Weight: lbs. oz. kg; 16.00 BMI Method: General Appearance: cachetic, thin HEENT: PERRL/EOMI, pharynx normal Neck: non-tender, full range of motion, normal inspection Cardiovascular: regular rate, rhythm Respiratory: lungs clear, normal breath sounds, no respiratory distress, no accessory muscle use Gastrointestinal: non tender, soft Back: no vertebral tenderness Extremities: normal range of motion (RLE), no pedal edema, other (obvious deformity to lef mid shaft femur. no open wounds. distal NVI) Neurologic/Psychiatric: alert, normal mood/affect, oriented x 3 Skin: normal color, warm/dry (KYLIE BARRIENTOS MD) [place] Coma Score Best Eye Response: (4) Open Spontaneously Best Verbal Response: (5) Oriented Best Motor Response: (6) Obeys Commands (KYLIE BARRIENTOS MD) Procedures/Interventions Patient Education: Explained Benefits, Explained Risks, Pt. Ack. Understanding Agreement on procedure with pt: Yes Breath Sounds per Auscultation: Crackles Heart Sounds per Auscultation: Regular Airway Exam: Mouth opens >2 fingers Sedation Adminstration Time: 18:38 Total Time spent in CS 5 minutes Patient received 1mg/kg of Propofol with good pain control. Tolerated the procedure well with no complications. Re-examination Time: 18:53 Re-examination 1859 Care turned over to: RN (YANCI MAZA MD) Splinting and Joint Reduction : Pre-Proc Neuro Vasc Exam: normal Post-Proc Neuro Vasc Exam: normal Progress L femur deformity pulled with traction/countertraction with Esperanza splint without complications. Pain well controlled after Reduction Attempts: 1 (YANCI MAZA MD) Progress/Results/Core Measures Results/Orders Lab Results Laboratory Tests Test 02/15/22 14:40 02/15/22 14:48 Range/Units Sodium Level 141 135-145 MMOL/L Potassium Level 4.6 3.6-5.0 MMOL/L Chloride Level 96 L 98-107 MMOL/L Carbon Dioxide Level 33 H 21-32 MMOL/L Anion Gap 12 5-14 MMOL/L Blood Urea Nitrogen 19 H 7-18 MG/DL Creatinine 0.79 0.60-1.30 MG/DL Estimat Glomerular Filtration Rate 76 BUN/Creatinine Ratio 24 Glucose Level 109 H 70-105 MG/DL Calcium Level 10.1 8.5-10.1 MG/DL White Blood Count 11.9 H 4.3-11.0 10^3/uL Red Blood Count 4.17 3.80-5.11 10^6/uL Hemoglobin 11.0 L 11.5-16.0 g/dL Hematocrit 37 35-52 % Mean Corpuscular Volume 89 80-99 fL Mean Corpuscular Hemoglobin 26 25-34 pg Mean Corpuscular Hemoglobin Concent 30 L 32-36 g/dL Red Cell Distribution Width 14.6 H 10.0-14.5 % Platelet Count 363 130-400 10^3/uL Mean Platelet Volume 10.3 9.0-12.2 fL Immature Granulocyte % (Auto) 1 % Neutrophils (%) (Auto) 83 H 42-75 % Lymphocytes (%) (Auto) 9 L 12-44 % Monocytes (%) (Auto) 6 0-12 % Eosinophils (%) (Auto) 1 0-10 % Basophils (%) (Auto) 1 0-10 % Neutrophils # (Auto) 9.8 H 1.8-7.8 10^3/uL Lymphocytes # (Auto) 1.1 1.0-4.0 10^3/uL Monocytes # (Auto) 0.8 0.0-1.0 10^3/uL Eosinophils # (Auto) 0.1 0.0-0.3 10^3/uL Basophils # (Auto) 0.1 0.0-0.1 10^3/uL Immature Granulocyte # (Auto) 0.1 0.0-0.1 10^3/uL (YANCI MAZA MD) Medications Given in ED Current Medications Medications Dose Ordered Sig/Deneen Route Start Time Stop Time Status Last Admin Dose Admin Fentanyl Citrate 50 mcg ONCE ONCE IVP 02/15/22 15:00 02/15/22 15:01 DC 02/15/22 15:12 50 MCG Fentanyl Citrate 50 mcg ONCE ONCE IVP 02/15/22 18:00 02/15/22 18:01 DC 02/15/22 17:54 50 MCG Ondansetron HCl 4 mg ONCE ONCE IVP 02/15/22 15:00 02/15/22 15:01 DC 02/15/22 15:12 4 MG Oxycodone HCl 10 mg ONCE ONCE PO 02/15/22 16:00 02/15/22 16:01 DC 02/15/22 16:08 10 MG Propofol 100 mg ONCE ONCE IV 02/15/22 16:45 02/15/22 16:46 DC 02/15/22 18:35 100 MG (YANCI MAZA MD) Vital Signs/I&O 02/15/22 14:30 Temp 37.0 Pulse 88 Resp 20 B/P (MAP) 148/76 (100) (YANCI MAZA MD) Blood Pressure Mean: 100 Progress Progress Note : Time: 16:35 Progress Note discussed need for operative repair with patient and she had indicated a desire to have surgery to fix her leg, so that she can stay ambulatory. Advised of the need for transfer and she is agreeable, (KYLIE BARRIENTOS MD) Initial ECG Impression Date: Feb 15, 2022 Initial ECG Impression Time: 16:02 Initial ECG Rate: 91 Initial ECG Rhythm: Normal Sinus Initial ECG Intervals: Normal Initial ECG Impression: Normal (KYLIE BARRIENTOS MD) Diagnostic Imaging Diagonstic Imaging: Xray Comments [facility] [place], [place] NAME: MARJ SULTANA [facility] REC#: [id number] PT STATUS: REG ER : 1940 PHYSICIAN: KYLIE BARRIENTOS MD ADMIT DATE: 02/15/22/ER Draft Date of Exam:02/15/22 FEMUR, LEFT, 2 VIEWS INDICATION: Left femur pain post fall. EXAMINATION: AP and lateral views of the left femur were obtained at 3:46 p.m. FINDINGS: Left hip prosthesis is noted. There is an oblique fracture of the femoral shaft of the tip of the prosthesis. There is significant angulation of the fracture site with displacement of the fracture fragments. IMPRESSION: Displaced left femoral shaft fracture at the tip of the left hip prosthesis, with significant angulation of the fracture site. Dictated on workstation # [id number] Dict: 02/15/22 1555 Trans: 02/15/[address] [facility] [id number] Interpreted by: HA MONTES MD Electronically signed by: Diagonstic Imaging: Xray Comments [facility] [place] [place] NAME: MARJ SULTANA [facility] REC#: [id number] PT STATUS: REG ER : 1940 PHYSICIAN: KYLIE BARRIENTOS MD ADMIT DATE: 02/15/22/ER Draft Date of Exam:02/15/22 CHEST 1 VIEW, AP/PA ONLY INDICATION: Fall, left hip deformity. TECHNIQUE: Frontal chest obtained at 03:45 p.m. and compared to 01/12/2022. FINDINGS: Heart is normal in size. Mass-like density in right lung base appears similar to the prior study. There is no pneumothorax or gross pleural fluid. There are chronic-appearing increased interstitial markings. Right shoulder prosthesis is again noted. Chronic changes of left humeral head are noted. There are multiple old left-sided rib fractures. IMPRESSION: Chronic-appearing increased interstitial markings. No acute consolidation or pleural fluid. Unchanged mass-like density in right lung base. Underlying chronic findings, as above. Dictated on workstation # [id number] Dict: 02/15/22 1554 Trans: 02/15/22 1602 [id number] Interpreted by: HA MONTES MD Electronically signed by: Diagonstic Imaging: CT Comments [facility] [place] [place] NAME: MARJ SULTANA [facility] REC#: [id number] PT STATUS: REG ER : 1940 PHYSICIAN: KYLIE BARRIENTOS MD ADMIT DATE: 02/15/22/ER Signed Date of Exam:02/15/22 CT HEAD/CERVICAL SPINE WO EXAMINATION: CT head and CT cervical spine without contrast. TECHNIQUE: Multiple contiguous axial images were obtained through the brain and cervical spine without the use of intravenous contrast. Sagittal and coronal reformations through the cervical spine were then performed. All CT scans use one or more of the following dose optimizing techniques: Automated exposure control, MA and/or KvP adjustment based on patient size and exam type or iterative reconstruction. HISTORY: Head and neck pain after fall. COMPARISON: 01/12/2022. FINDINGS: HEAD: Mild diffuse cerebral volume loss with proportional enlargement of the ventricles and sulci. Mild hypodensities throughout the supratentorial white matter of both cerebral hemispheres. No acute intracranial hemorrhage or abnormal extra-axial fluid collections are present. Calcification of the intracranial ICAs. No hyperdense vessel. The calvarium is intact. The mastoid air cells are clear. The visualized paranasal sinuses are clear. Surgical changes from cataract repair. There is a left frontal scalp hematoma. C-SPINE: Surgical degenerative changes of the spine with straightening of the normal cervical lordosis. Vertebral body heights are maintained. No acute fracture, dislocation, or destructive osseous process. There is multilevel facet hypertrophy without perched facets. No significant central canal or neural foraminal stenosis. The paraspinous soft tissues are normal. There is a calcified left thyroid nodule which requires no follow-up. Scarring within the lung apices. IMPRESSION: 1. No acute intracranial abnormality. Chronic microangiopathy and volume loss. 2. Degenerative changes of the cervical spine without acute osseous abnormality. 3. Left frontal scalp hematoma without underlying calvarial fracture. Dictated by: Dictated on workstation # [id number] Dict: 02/15/22 1551 Trans: 02/15/22 1558 [id number] Interpreted by: CANDI KESSLER DO Electronically signed by: CANDI KESSLER DO 02/15/22 1558 Diagonstic Imaging: Xray Comments [facility] [place] [place] NAME: MARJ SULTANA [facility] REC#: [id number] PT STATUS: REG ER : 1940 PHYSICIAN: KYLIE BARRIENTOS MD ADMIT DATE: 02/15/22/ER Draft Date of Exam:02/15/22 PELVIS 1 TO 2 VIEWS EXAMINATION: Pelvis, single view. COMPARISON: January 12, 2022. HISTORY: 81-year-old female, fall. Left lower extremity pain. Deformity. 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 The inferior extent of the femoral component of the prosthesis is not in the included [id number]. The hips are not obviously dislocated. The pubic symphysis and sacroiliac joints are normally aligned. The bones appear potentially demineralized. There is lumbar spine hardware and laminectomy changes of the lumbar spine. There is an incompletely imaged displaced oblique fracture of the proximal femoral diaphysis. IMPRESSION: 1. Incompletely imaged obliquely oriented displaced fracture of the proximal femoral diaphysis. 2. No identified acute fracture additionally present in the region of the pelvis or either hip. Dictated on workstation # [id number] Dict: 02/15/22 1613 Trans: 02/15/[address] [facility] [id number] Interpreted by: GLADIS BELLO MD Electronically signed by: (KYLIE BARRIENTOS MD) Departure Communication (Admissions) Time/Spoke to Consulting Phy: 16:[address] Maria Eugenia Hernandez, he states he feels the patient would be better served at a larger facility due to the nature of the fracture and co- morbidities/ risk to health (KYLIE BARRIENTOS MD) Impression Primary Impression: Esmer-prosthetic femoral shaft fracture Additional Impression: Contusion of scalp Qualified Codes: S00.03XA - Contusion of scalp, initial encounter Disposition: 02 XFER SHT-TRM HOSP Condition: Stable Transfer Transfer Reason: Exceeds level of care Time Spoke to Accepting Phy: 16:30 Transfer Progress Notes Discussed with Dr Sullivan (ED) accepts patient for transfer Transfer Facility: [facility] Method of Transfer: EMS (KYLIE BARRIENTOS MD) Departure-Patient Inst. Referrals: DIMITRI CARPIO V DO (PCP/Family) Primary Care Physician KYLIE BARRIENTOS MD Feb 15, 2022 15:13 YANCI MAZA MD Feb 15, 2022 18:49
[2022-02-15 15:16] LABS: POTASSIUM 4.6 MMOL/L (3.6-5.0)
[2022-02-15 15:17] LABS: CALCIUM 10.1 MG/DL (8.5-10.1)
[2022-02-15 15:22] LABS: CREATININE SERUM 0.79 MG/DL (0.60-1.30)
--- NOTE | 2022-02-15 15:57 | Diagnostic Imaging Report ---
EXAMINATION: CT head and CT cervical spine without contrast. TECHNIQUE: Multiple contiguous axial images were obtained through the brain and cervical spine without the use of intravenous contrast. Sagittal and coronal reformations through the cervical spine were then performed. All CT scans use one or more of the following dose optimizing techniques: Automated exposure control, MA and/or KvP adjustment based on patient size and exam type or iterative reconstruction. HISTORY: Head and neck pain after fall. COMPARISON: 01/12/2022. FINDINGS: HEAD: Mild diffuse cerebral volume loss with proportional enlargement of the ventricles and sulci. Mild hypodensities throughout the supratentorial white matter of both cerebral hemispheres. No acute intracranial hemorrhage or abnormal extra-axial fluid collections are present. Calcification of the intracranial ICAs. No hyperdense vessel. The calvarium is intact. The mastoid air cells are clear. The visualized paranasal sinuses are clear. Surgical changes from cataract repair. There is a left frontal scalp hematoma. C-SPINE: Surgical degenerative changes of the spine with straightening of the normal cervical lordosis. Vertebral body heights are maintained. No acute fracture, dislocation, or destructive osseous process. There is multilevel facet hypertrophy without perched facets. No significant central canal or neural foraminal stenosis. The paraspinous soft tissues are normal. There is a calcified left thyroid nodule which requires no follow-up. Scarring within the lung apices. IMPRESSION: 1. No acute intracranial abnormality. Chronic microangiopathy and volume loss. 2. Degenerative changes of the cervical spine without acute osseous abnormality. 3. Left frontal scalp hematoma without underlying calvarial fracture. Dictated by: Dictated on workstation # [id number]
--- NOTE | 2022-02-15 16:02 | Diagnostic Imaging Report ---
INDICATION: Left femur pain post fall. EXAMINATION: AP and lateral views of the left femur were obtained at 3:46 p.m. FINDINGS: Left hip prosthesis is noted. There is an oblique fracture of the femoral shaft of the tip of the prosthesis. There is significant angulation of the fracture site with displacement of the fracture fragments. IMPRESSION: Displaced left femoral shaft fracture at the tip of the left hip prosthesis, with significant angulation of the fracture site. Dictated by: Dictated on workstation # [id number]
--- NOTE | 2022-02-15 16:03 | Diagnostic Imaging Report ---
INDICATION: Fall, left hip deformity. TECHNIQUE: Frontal chest obtained at 03:45 p.m. and compared to 01/12/2022. FINDINGS: Heart is normal in size. Mass-like density in right lung base appears similar to the prior study. There is no pneumothorax or gross pleural fluid. There are chronic-appearing increased interstitial markings. Right shoulder prosthesis is again noted. Chronic changes of left humeral head are noted. There are multiple old left-sided rib fractures. IMPRESSION: Chronic-appearing increased interstitial markings. No acute consolidation or pleural fluid. Unchanged mass-like density in right lung base. Underlying chronic findings, as above. Dictated by: Dictated on workstation # [id number]
--- NOTE | 2022-02-15 16:19 | Diagnostic Imaging Report ---
EXAMINATION: Pelvis, single view. COMPARISON: January 12, 2022. HISTORY: 81-year-old female, fall. Left lower extremity pain. Deformity. 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 The inferior extent of the femoral component of the prosthesis is not in the included [id number]. The hips are not obviously dislocated. The pubic symphysis and sacroiliac joints are normally aligned. The bones appear potentially demineralized. There is lumbar spine hardware and laminectomy changes of the lumbar spine. There is an incompletely imaged displaced oblique fracture of the proximal femoral diaphysis. IMPRESSION: 1. Incompletely imaged obliquely oriented displaced fracture of the proximal femoral diaphysis. 2. No identified acute fracture additionally present in the region of the pelvis or either hip. Dictated by: Dictated on workstation # [id number]
[2022-02-15] MEDS ORDERED: proPOfol 200 MG/20 ML (DIPRIVAN) VIAL IV ONE (16:45)
[2022-02-15 19:05] VITALS: BP 148/76
== END 2022-02-15 19:07 | disposition short-term general hospital (02) ==
LOC: EDUNIT# 14:17 → ER 14:29
DX: S72.332A Displaced oblique fracture of shaft of left femur, initial encounter for closed fracture (principal); M97.02XA Periprosthetic fracture around internal prosthetic left hip joint, initial encounter; S00.03XA Contusion of scalp, initial encounter; F17.210 Nicotine dependence, cigarettes, uncomplicated; Z66 Do not resuscitate; W01.0XXA Fall on same level from slipping, tripping and stumbling without subsequent striking against object, initial encounter; W22.8XXA Striking against or struck by other objects, initial encounter
CPT/HCPCS: 36415; 70450; 71045; 72125; 72170; 73552; 80048; 85025; 93005; 93041; 99291